=== PATIENT | male | born 1955 | race Caucasian/White ===

== ENCOUNTER → 2017-09-30 18:17 | Outpatient (CLI) | payer OTHER, SELFPAY | PROVIDERS: Family Provider Family Medicine; PCP Family Medicine; Visit Provider Physician Assistant | DX: J02.9 Acute pharyngitis, unspecified (principal) | CPT/HCPCS: 87081 ==

== ENCOUNTER 2018-07-30 05:01 | Emergency (ER) | payer OTHER, SELFPAY ==
[2018-07-30 05:02] VITALS: BP 148/94; PULSE 67; RESP 18; TEMP 36.7; O2SAT 97; BMI 24.7
--- NOTE | 2018-07-30 05:26 | ED.VISSUMM ---
- ER Visit Summary Date of Service: 07/30/18 Chief Complaint: Postoperative pain History of Present Illness: The patient is a 62 M presenting for evaluation secondary to postoperative pain. Patient had a right shoulder arthroscopy performed by Dr. OBREGON performed 2 days ago. On discharge she was given a prescription for 40 Percocet. When he went to the pharmacy, he told them that he did not feel that he needed 40 and only took a prescription for 5. He states however he is having persistent pain despite rrob-sns-ujspgft analgesic use, and is requesting analgesia. He denies any presence of fevers or abnormal drainage. Physical Examination: Vital signs are within normal limits. Patient has normal sensation range of motion of the hand and wrist. Normal pulses. Dressing was not taken down on the shoulder. Test Results: None indicated Emergency Department Course and Treatment: Patient presented secondary to postoperative pain. He does not have a fever or tachycardia. Patient actually brought in his bottle which showed only #5 Percocet is being dispensed. I do not believe that he is drug-seeking. Patient was given a dose of oxycodone in the emergency department and will be discharged with a course of Percocet. Disposition: Discharge Impression: 1. Postoperative pain This note was generated with [employer] dictation software. It may contain incorrect words, spelling, and punctuation that were not noted in review of the chart prior to signing ED Disposition - Plan for ED Patient: Disposition: Home or Assisted Living Chief Complaint: Upper Extremity Injury Diagnosis: Postoperative pain of extremity Instructions: ED Post Op Pain Prescriptions: Oxycodone HCl/Acetaminophen [Percocet 5/325] 1 - 2 tab PO Q6H PRN PRN 5 Days #40 tab PRN Reason: Pain Additional Instructions: Followup with Dr. Obregon as needed
--- NOTE | 2018-07-30 05:29 | ED.DCSUM_ITS ---
- ER Visit Summary Date of Service: 07/30/18 Chief Complaint: Postoperative pain History of Present Illness: The patient is a 62 M presenting for evaluation secondary to postoperative pain. Patient had a right shoulder arthroscopy performed by Dr. OBREGON performed 2 days ago. On discharge she was given a pr escription for 40 Percocet. When he went to the pharmacy, he told them that he did not feel that he needed 40 and only took a prescription for 5. He states however he is having persistent pain despite mznu-cqv-wipnqtg analgesic use, and is requesting analgesia. He denies any presence of fevers or abnormal drainage. Physical Examination: Vital signs are within normal limits. Patient has normal sensation range of motion of the hand and wrist. Normal pulses. Dressing was not taken down on the shoulder. Test Results: None indicated Emergency Department Course and Treatment: Patient presented secondary to postoperative pain. He does not have a fever or tachycardia. Patient actually brought in his bottle which showed only #5 Percocet is being dispensed. I do not believe that he is drug-seeking. Patient was given a dose of oxycodone in the emergency department and will be discharged with a course of Percocet. Disposition: Discharge Impression: 1. Postoperative pain This note was generated with [employer] dictation software. It may contain incorrect words, spelling, and punctuation that were not noted in review of the chart prior to signing ED Disposition - Plan for ED Patient: Disposition: Home or Assisted Living Chief Complaint: Upper Extremity Injury Diagnosis: Postoperative pain of extremity Instructions: ED Post Op Pain Prescriptions: Oxycodone HCl/Acetaminophen [Percocet 5/325] 1 - 2 tab PO Q6H PRN PRN 5 Days #40 tab PRN Reason: Pain Additional Instructions: Followup with Dr. Obregon as needed
[2018-07-30] MEDS: oxyCODONE 5 MG Tablet 10 MG PO (05:36)
== END 2018-07-30 05:38 | disposition home or self-care (01) ==
PROVIDERS: Emergency Provider Emergency Medicine; Family Provider Family Medicine; PCP Family Medicine
DX: G89.18 Other acute postprocedural pain (principal); Z98.890 Other specified postprocedural states
CPT/HCPCS: 99283

== ENCOUNTER → 2018-10-24 06:08 | Outpatient (CLI) | payer OTHER, SELFPAY ==
[2018-10-24 06:38] LABS: Absolute Lymphocyte Count 2.86 X10^3/ul (0.83-4.51); Absolute Neutrophil Count 3.9 X10^3/uL (2.0-7.7); Basophil# 0.02 X10^3/uL; Basophil% 0.3 % (0-1); Eosinophil# 0.16 X10^3/uL; Eosinophils% 2.1 % (0-5); Hematocrit 47.3 % (40-54); Hemoglobin 16.3 g/dl (13.0-16.5); Lymphocyte # 2.86 X10^3/ul (4.0); Lymphocyte % 36.9 % (19-41); Mean Corp Hgb Conc 34.5 g/gl (32-36); Mean Corpuscular Hgb 32.3 pg (27.0-32.0); Mean Corpuscular Volume 93.8 fL (80-94); Mean Platelet Vol. 9.4 fl (6.2-12.0); Monocyte# 0.86 X10^3/uL; Monocyte% 11.1 % (0-10); Neutrophil # 3.85 X10^3/uL (2.7-7.7); Neutrophil % 49.5 % (47-70); Platelet Count 227 K/mm3 (150-450); RBC Distribution Width CV 13.5 % (11.6-14.6); Red Blood Count 5.04 M/mm3 (4.6-6.2); White Blood Count 7.8 K/mm3 (4.4-11.0)
[2018-10-24 06:46] LABS: POSITIVE COUNT NO; POSITIVE DIFFERENTIAL NO; POSITIVE MORPHOLOGY NO
[2018-10-24 06:56] LABS: CRP 4.03 mg/L (0.0-3.0)
[2018-10-24 07:16] LABS: Erythrocyte Sedimentation Rate 9 mm/hr (0-20)
== END ==
PROVIDERS: Family Provider Family Medicine; PCP Family Medicine
DX: M70.62 Trochanteric bursitis, left hip (principal); Y93.9 Activity, unspecified; M25.552 Pain in left hip; Z96.642 Presence of left artificial hip joint
CPT/HCPCS: 36415; 85025; 85652; 86140

== ENCOUNTER 2018-12-15 08:00 | Outpatient (RCR) | payer OTHER, SELFPAY ==
--- NOTE | 2018-09-16 16:09 | HP.PTEVAL_ITS ---
Patient's Visit Information CAMILA BEAN is a 63 year old M referred to Physical Therapy by Isidro Obregon MD with a diagnosis of R Lg massive RCR. Date of Evaluation: 09/16/18 Physical Therapist: Bassam Frazier PT, XAVIER, SCS, CSCS - Visit Plan Frequency: 2x /Week Duration: 6 Weeks Plan: Nik has a good understanding of healing prodcess. 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 I'm familiar with this patient as I rehab his previous RCR. Nik states that he began to experience r ight shoulder pain after he started playing tennis again. He previously had three corticol injections by Dr Gaspar - Pain Right Shoulder Pain Intensity (Out of 10): 2 Pain Intensity Range: 2, 4 Comment: Depend on activity and sleeping position - Objective Presents to the clinic 6 weeks post op, his incision site is well healed with no seepage or drained. This right hand dominate individual had a grib strength of 85 R 95 L. Denies any numness of tingling. his passive rom was 130 Flexion, 130 Abduction and ext rotation 45 Int rotation was deferrd at this time - Goals Goal 1:: Return demo Phase 1 passive exercise Goal Time Frame: 1 Week Goal 2:: Understanding of healing process Goal Time Frame: 1 Week Goal 3:: Will progress thru phase 2 and 3 when appropraite Goal Time Frame: 6-8 Weeks - Rehabilitation Potential Physical Therapy Diagnosis: Same Rehabilitation Potential: Good - Anticipated Interventions Patient/Client Instruction: Educate patient on: Condition Therapeutic Exercise to Include: Strength training, Endurance training, Passive ROM, Active ROM For the Purpose of:: To increase ROM, To improve endurance Functional electric stimulation: Yes For the Purpose of:: To decrease pain, To increase ROM Thank you for the opportunity to evaluate your patient. For Medicare and Medicare HMO plans, please review the plan of care and approve it. It will need to be FAXED BACK to us at [phone] for Medicare purposes. For Medicare only, by signing this I certify the plan of care. Please let me know if there are questions or concerns regarding this plan of care. Physician Signature: Date:
--- NOTE | 2018-12-15 08:54 | HP.PTDCSUM ---
HP - PT D/C Summary It has been my pleasure to treat CAMILA BUSCH under orders from Isidro Obregon MD, for the diagnosis of R Lg massive RCR for a total of 10 visit(s). Discharge Date: 12/15/18 Please see the following information for a summary of their discharge status. - Subjective Subjective: Doing well shoulder feels great - Pain Right Shoulder Pain Intensity (Out of 10): 0 - Overall Improvement % Improvement: 100 - Objective Objective/Function: 175 shoulder flexion. 170 abduction. ext 85plus. int t4 vs T5. R ext 20.8/38.4. L ext 21/35 small tear - Goals Goal 1:: Return demo Phase 1 passive exercise Goal Progress: Goal Met Goal 2:: Understanding of healing process Goal Progress: Goal Met Goal 3:: Will progress thru phase 2 and 3 when appropraite Goal Progress: Goal Met - Plan Plan: discharge - D/C Information Discharge Comments: Progressed well f/u with physician at the end of December If there are questions or concerns regarding this patient's physical therapy, please feel free to call me at [phone]. Thank you for the referral of this patient. Sincerely, Bassam Frazier, PT, XAVIER, SCS, CSCS
== END 2018-12-15 10:20 | disposition home or self-care (01) ==
LOC: PT 08:00
PROVIDERS: Family Provider Family Medicine; PCP Family Medicine; Referring Provider Orthopaedic Surgery; Visit Provider Orthopaedic Surgery
DX: M75.121 Complete rotator cuff tear or rupture of right shoulder, not specified as traumatic (principal)
CPT/HCPCS: 97014; 97110; 97140; 97161; 97164; 97530; G0283

== ENCOUNTER → 2019-04-28 07:36 | Outpatient (CLI) | payer OTHER, SELFPAY ==
--- NOTE | 2019-04-28 07:42 | MRI_ITS ---
STUDY: MRI LEFT SHOULDER REASON FOR EXAM: Male, 63 years old. Shoulder pain TECHNIQUE: Standardized fat and water weighted pulse sequences were obtained in all 3 orthogonal planes. COMPARISON: None. FINDINGS: There is full-thickness tear of the supraspinatus tendon which is retracted up to 4 cm. There is increased T2 signal within the infraspinatus tendon without retraction. Normal subscapularis tendon. Normal teres minor tendon. Normal supraspinatus muscle. Normal infraspinatus muscle. Normal subscapularis muscle. Normal teres minor muscle. There is elevation of the humeral head relationship to the acromion. There are Articular and osteochondral defects within the humeral head most significant within the greater tuberosity. There is mild marrow with increased T2 signal secondary edema within the greater tuberosity likely reactive. There is a subchondral geode within the greater tuberosity measuring 7 mm. There is a septated approximately 3 cm fluid collection noted inferior to the coracoid process. . The bicipital tendon is intact. Small amount of fluid around the bicipital tendon within the bicipital tendon sheath. There is mild flattening deformity of the anterior and posterior labrum. There are small osteophytes at the glenohumeral joint. There are mild degenerative changes at the AC joint with inferior spurring. There is compression upon the supraspinatus muscle and tendon. Normal deltoid muscle. Normal trapezius muscle. MRI/Upper Ext Joint Only(Routine) IMPRESSION: Full-thickness tear of the supraspinatus tendon which is retracted up to 4 cm Tendinosis and partial tear of the infraspinatus tendon Elevation of the humeral head in relationship to the acromion Significant reticular or and osteochondral defects within the greater tuberosity with subchondral geodes and mild marrow edema which is reactive Subcoracoid fluid collection which may represent distention of the joint capsule versus ganglion cyst or paralabral cyst Significant degeneration anterior and posterior labrum degenerative tears cannot be excluded Mild bicipital tenosynovitis, the bicipital tendon is intact Electronically Signed: Merlin Mccloud, at 8:02 EDT Tel , Service support ,
== END ==
PROVIDERS: Family Provider Family Medicine; PCP Family Medicine; Referring Provider Orthopaedic Surgery; Visit Provider Orthopaedic Surgery
DX: M75.42 Impingement syndrome of left shoulder (principal)
CPT/HCPCS: 73221

== ENCOUNTER → 2019-09-07 14:52 | Outpatient (CLI) | payer OTHER, SELFPAY ==
[2019-05-03 16:59] VITALS: BMI 24.7
[2019-09-07 16:56] LABS: ALB/GLOB Ratio 1.3 RATIO (0.9-2.4); AST(SGOT) 18 U/L (15-37); Alanine Aminotransfer ALT/SGPT 36 U/L (16-61); Albumin, Serum 3.9 g/dL (3.2-5.0); Alkaline Phosphatase 68 U/L (45-117); Anion Gap 8 (5-15); BUN 18 mg/dL (7-18); BUN/Creat Ratio 19.3 RATIO (10-20); Calcium,Total 8.8 mg/dL (8.5-10.1); Chloride 108 mmol/L (98-107); Creatinine, Serum 0.93 mg/dL (0.70-1.30); EST Glomerular Filtration Rate 86 mL/min (>60); Est Glom Filt Rate - Afr Amer 104 mL/min (>60); Globulin 2.9 g/dL (2.2-4.2); Glucose 109 mg/dL (74-106); Potassium 3.8 mmol/L (3.5-5.1); Protein, Total 6.8 g/dL (6.4-8.2); Sodium Level 140 mmol/L (136-145); Thyroid Stim Hormone (TSH) 1.64 uIU/mL (0.358-3.74)
[2019-09-07 17:58] LABS: Hemoglobin A1c 4.9 % (4.2-6.3)
[2019-09-12 09:27] LABS: Vitamin B12 301 pg/mL (211-911); Vitamin D,25 Hydroxy 22.1 ng/mL
== END ==
PROVIDERS: PCP Family Medicine; Referring Provider Family Medicine; Visit Provider Family Medicine
DX: R20.0 Anesthesia of skin (principal); R20.2 Paresthesia of skin; E55.9 Vitamin D deficiency, unspecified
CPT/HCPCS: 36415; 80053; 82306; 82607; 82746; 83036; 84443

== ENCOUNTER 2019-11-08 07:30 | Outpatient (RCR) | payer OTHER, SELFPAY ==
[2019-05-03 16:59] VITALS: BMI 24.7
--- NOTE | 2019-09-07 11:31 | HP.PTEVAL ---
Patient's Visit Information CAMILA BUSCH is a 64 year old M referred to Physical Therapy by Kip Medina MD with a diagnosis of Glut Medius and minmus repair. Date of Evaluation: 09/07/19 Physical Therapist: Valeria Trejo DPT - Visit Plan Frequency: 1x/Week Duration: 4 Weeks Plan: Follow protocol. HEP Given 09/07: SKTC with other knee bent, Prone quad stretch, glut sets to 25% of force, isometric abdominals in hooklying, hamstring stretch, and hip adduction isometrics with all in hooklying - Subjective Findings: Patient reports that he had a resurfacing in 2016- never got better- went through injections etc finally went and Saw Dr. Deluna who did ultrasounds and sent him to Dr. Medina- surgery detatched tendons- cleaned out calcifications- put in 15 screws and 3 anchors and lots of sutures. This surgery was 08/17/2019- went home after surgery- pretty much non-weight bearing on the left LE. No hip pain at this time- does have some stiffness. He feels like his ROM is improving. He is being compliant with weigh bearing. No N/T in the LE. 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 Sleep: not disturbed- wants to be able to roll over on that side- going between reclyner and bed. Recreational activities: play tennis and be more active overall. PMHX: Torn left shoulder, two right shoulder surgeries. Meds: vespia - Objective Posture: FH, RS-can correct with VC's. Gait: axillary crutches with NWB to the left LE- no problems with crutching 250 feet. Weight bearing activities not tested seconday to restrictions. Palpation: not tender. Strength: Ankle: 5/5, Knee: 5/5- Hip: isometric testing: Flexion/Abd/Extn/add at neutral: 4+/5 no pain, Core: fair plus. ROM: ANkle/Knee: WNL, Hip: extn: 0 degrees, Abd: 50 degrees no pain, IR/ER: neutral, Flexion: 120 degrees. Flex: HS: moderate, Quad: moderate, Gastroc: moderate - Goals Goal 1:: Patient will be I with HEP and progression Goal Time Frame: 4-6 Weeks Goal 2:: Patient will ambulate >300 feet with a normalized gait pattern as allowed per protocol Goal Time Frame: 4-6 Weeks Goal 3:: Patient will demo 5/5 strength in LE where deficit as allowed per protocol Goal Time Frame: 4-6 Weeks Goal 4:: Patient will return to all normal ADL's with 0/10 pain as allowed per protocol Goal Time Frame: 4-6 Weeks - Rehabilitation Potential Physical Therapy Diagnosis: Patient presents with hypomobilty s/p surgical intervention to the left hip- he has decreased ROM, strength, flex and muscular endurnace. Rehabilitation Potential: Good - Anticipated Interventions Patient/Client Instruction: Educate patient on: Benefits of Fitness Program Therapeutic Exercise to Include: Strength training, Endurance training, Balance training, Agility training, Body mechanics, Postural training, Flexibilty training, Gait and locomotor training, Neuromotor development, Passive ROM, Active ROM, Dynamic Lumbar Stabilization Comment: as per protocol For the Purpose of:: To improve muscle performance and motor function TENS: Yes Cryotherapy (ice pack, ice massage): Yes Thermo therapy (hot pack): Yes Thank you for the opportunity to evaluate your patient. For Medicare and Medicare HMO plans, please review the plan of care and approve it. It will need to be FAXED BACK to us at [phone] for Medicare purposes. For Medicare only, by signing this I certify the plan of care. Please let me know if there are questions or concerns regarding this plan of care. Physician Signature: Date:
--- NOTE | 2019-11-08 08:48 | HP.PTDCSUM ---
It has been my pleasure to treat CAMILA BUSCH referred by Kip Medina MD, with the diagnosis of Glut Medius and minmus repair for a total of 9 visit(s). Discharge Date: Please see the following information for a summary of their discharge status. Subjective: No pain today. I was sore yesterday % Improvement: 80 Objective/Function: No pain this date. No limits with ambulation. Pt is I with HEP. 5/5 B LE strength. Rx goals achieved Goal 1:: Patient will be I with HEP and progression Goal Progress: Goal Met Goal 2:: Patient will ambulate >300 feet with a normalized gait pattern as allowed per protocol Goal Progress: Goal Met Goal 3:: Patient will demo 5/5 strength in LE where deficit as allowed per protocol Goal Progress: Goal Met Goal 4:: Patient will return to all normal ADL's with 0/10 pain as allowed per protocol Goal Progress: Goal Met Plan: Discharge If there are questions or concerns regarding this patient's physical therapy, please feel free to call me at [phone]. Thank you for the referral of this patient. Sincerely, Otilio Duff, PT, ATC
== END 2019-11-08 10:34 | disposition home or self-care (01) ==
LOC: PT 07:30
PROVIDERS: PCP Family Medicine; Referring Provider Orthopaedic Surgery Sports Medicine; Visit Provider Orthopaedic Surgery Sports Medicine
DX: S76.012D Strain of muscle, fascia and tendon of left hip, subsequent encounter (principal)
CPT/HCPCS: 97110; 97162; 97164

== ENCOUNTER → 2019-12-04 15:20 | Outpatient (CLI) | payer OTHER, SELFPAY ==
[2019-05-03 16:59] VITALS: BMI 24.7
[2019-12-04 18:10] LABS: Absolute Lymphocyte Count 2.47 X10^3/uL (0.83-4.51); Absolute Neutrophil Count 3.7 X10^3/uL (2.0-7.7); Basophil# 0.03 X10^3/uL; Basophil% 0.4 % (0-1); Eosinophil# 0.13 X10^3/uL; Eosinophils% 1.9 % (0-5); Hematocrit 45.5 % (40-54); Hemoglobin 15.8 g/dL (13.0-16.5); Lymphocyte # 2.47 X10^3/ul (4.0); Lymphocyte % 35.7 % (19-41); Mean Corp Hgb Conc 34.7 g/dL (32-36); Mean Corpuscular Hgb 32.8 pg (27.0-32.0); Mean Corpuscular Volume 94.6 fL (80-94); Mean Platelet Vol. 10.4 fl (6.2-12.0); Monocyte# 0.56 X10^3/uL; Monocyte% 8.1 % (0-10); NRBC Flagged by Analyzer 0 % (0-5); Neutrophil # 3.71 X10^3/uL (2.7-7.7); Neutrophil % 53.6 % (47-70); Platelet Count 247 K/mm3 (150-450); RBC Distribution Width CV 12.2 % (11.6-14.6); RBC Distribution Width SD 42.8 fl (35.1-43.9); Red Blood Count 4.81 M/mm3 (4.6-6.2); White Blood Count 6.9 K/mm3 (4.4-11.0)
[2019-12-04 18:19] LABS: Vitamin D,25 Hydroxy 28.4 ng/mL
[2019-12-04 18:34] LABS: ALB/GLOB Ratio 1.3 RATIO (0.9-2.4); AST(SGOT) 24 U/L (15-37); Alanine Aminotransfer ALT/SGPT 35 U/L (16-61); Albumin, Serum 4.1 g/dL (3.2-5.0); Alkaline Phosphatase 58 U/L (45-117); Anion Gap 5 (5-15); BUN 21 mg/dL (7-18); BUN/Creat Ratio 24.1 RATIO (10-20); Chloride 106 mmol/L (98-107); Creatinine, Serum 0.87 mg/dL (0.70-1.30); EST Glomerular Filtration Rate 93 mL/min (>60); Est Glom Filt Rate - Afr Amer 113 mL/min (>60); Globulin 3.1 g/dL (2.2-4.2); Glucose 84 mg/dL (74-106); PSA,Total- Diagnostic 4.01 ng/mL (0.0-4.0); Protein, Total 7.2 g/dL (6.4-8.2); Sodium Level 138 mmol/L (136-145); Thyroid Stim Hormone (TSH) 2.25 uIU/mL (0.358-3.74)
== END ==
PROVIDERS: PCP Family Medicine; Visit Provider Family Medicine
DX: R20.2 Paresthesia of skin (principal); M85.80 Other specified disorders of bone density and structure, unspecified site; E55.9 Vitamin D deficiency, unspecified; Z12.5 Encounter for screening for malignant neoplasm of prostate
CPT/HCPCS: 36415; 80053; 82306; 84153; 84443; 85025

== ENCOUNTER → 2020-09-26 16:30 | Outpatient (CLI) | payer OTHER, SELFPAY ==
[2019-05-03 16:59] VITALS: BMI 24.7
--- NOTE | 2020-09-26 16:47 | MRI_ITS ---
STUDY: MRI LEFT HIP REASON FOR EXAM: Male, 65 years old. STRAIN OF MUSCLE FASCIA AND TENDON; REVAL FOR GLUTEAL TENDON TEAR TECHNIQUE: Standardized fat and water weighted pulse sequences were obtained in all 3 orthogonal planes. COMPARISON: 07/06/2016. FINDINGS: Left hip arthroplasty appears intact. Large volume left hip joint effusion with extension of the iliopsoas bursal distention (axial image 6 series 3). No acute fracture line. No acute dislocation. No acute cortical destruction. Trace left greater trochanteric bursitis. Mild right hip cartilage loss with minimal productive changes. Minimal pubic symphysis arthrosis. Normal sacroiliac joints. Mild lumbar spine arthrosis. Moderate gluteus medius/minimus tendinosis with previous tendon repair (no recurrent tear). Normal hamstring tendon. Normal iliopsoas tendon. Normal adductor tendons. Normal rectus femoris tendons. No focal muscle abdomen only. Colonic diverticulosis. Prostatomegaly measuring up to 5.1 cm. Small fat-containing inguinal hernias. Remainder of the visualized intra-abdominal/pelvic contents unremarkable. Normal neurovascular bundle. MRI/Lower Ext Joint Only (Routine) IMPRESSION: Left hip arthroplasty with large left hip joint effusion and iliopsoas bursal distention Moderate gluteus medius/minimus tendinosis with tendon repair (no recurrent tear) Trace left greater trochanteric bursitis Electronically Signed: Derrick Martinez DO at 10:30 EST Tel , Service support ,
== END ==
PROVIDERS: PCP Family Medicine; Referring Provider Orthopaedic Surgery Sports Medicine; Visit Provider Orthopaedic Surgery Sports Medicine
DX: S76.012D Strain of muscle, fascia and tendon of left hip, subsequent encounter (principal); X58.XXXD Exposure to other specified factors, subsequent encounter
CPT/HCPCS: 73721

== ENCOUNTER 2021-01-01 15:57 | Emergency (ER) | payer OTHER, SELFPAY ==
[2019-05-03 16:59] VITALS: BMI 24.7
[2021-01-01 15:57] VITALS: BP 133/82; PULSE 71; RESP 16; TEMP 36.4; O2SAT 97; BMI 24.3
--- NOTE | 2021-01-01 16:10 | CT_ITS ---
STUDY: CT FACIAL BONES WITHOUT CONTRAST REASON FOR EXAM: Male, 65 years old. injury RADIATION DOSAGE (If Supplied By Facility): CTDIvol = ( 29.38 ) mGy, DLP = ( 679.68 ) mGycm TECHNIQUE: The patient was scanned in a multi detector CT scanner. Sagittal and coronal images were reconstructed. Individualized dose optimization techniques were used for this CT. COMPARISON: None. FINDINGS: Some soft tissue swelling in the left mandibular area. No loculated fluid collection to suggest hematoma or abscess. Normal orbital miguel and orbital contents. Normal nasal bones and anterior nasal spine. Normal facial bones. There is no demonstrated fracture. Normal visualized paranasal sinuses. CT/Sinus/Facial Bone IMPRESSION: Normal unenhanced CT of the facial bones. Electronically Signed: Kaiden Camejo MD at 17:02 EDT Tel , Service support ,
--- NOTE | 2021-01-01 16:10 | EX.ED.DYSGE1 ---
HPI History of Present Illness Chief Complaint: Edema Informant: patient Narrative Narrative: 65-year-old male states that yesterday he hit his lower left jaw on some metal shelving. He notes it was sore and there is a mild amount of swelling last night. He iced it. He states that today his coworkers noticed that his face was more swollen. He denies any dental pain. He denies any malocclusion. No dry mouth. PFSH PFS Medical History Arthritis Shoulder pain Home Medications amoxicillin 875 mg-potassium clavulanate 125 mg tablet 1 tab PO BID #20 tab 05/03/19 [Rx Last Taken Unknown] Allergy/AdvReac Type Severity Reaction Status Date / Time No Known Allergies Allergy Verified 05/03/19 16:56 Surgical History history of hip resurfacing History of shoulder surgery Social History Smoking Status: Never smoker alcohol intake: never ROS ROS ED Constitutional Constitutional ED: Denies chills or weight loss Eyes Eyes: Denies change in vision or diplopia ENT ENT ED: Reports other Details: See history of present illness ; Denies ear pain, rhinorrhea or sore throat Cardiovascular Cardiovascular: Denies chest pain, orthopnea, palpitations or racing heartbeat Respiratory/Chest Respiratory/Chest: Denies cough, dyspnea or orthopnea Gastrointestinal Gastrointestinal: Denies abdominal pain, diarrhea, nausea or vomiting Genitourinary Genitourinary ED: Denies dysuria, hematuria or urinary frequency Musculoskeletal Musculoskeletal: Denies arthralgias or myalgias Integumentary Denies abscess or rash Neurologic Neurologic: Denies headache(s) or weakness Psychiatric Psychiatric: Denies anxiety, depression, suicidal ideation or suicidal thoughts Endocrine Endocrinology: Denies polydipsia, polyphagia or polyuria Allergic/Immunologic Allergic/Immunologic ED: Denies mouth swelling, tongue swelling or urticaria EXAM Physical Exam Const Vital Signs: 01/01/21 15:57 Temperature 97.6 F L Temperature Source Temporal Pulse Rate 71 Respiratory Rate 16 Blood Pressure 133/82 H Blood Pressure Mean 99 Pulse Ox 97 Oxygen Delivery Method Room Air Positive well nourished and well developed General Appearance ED: well developed HEENT Reports normocephalic, head/scalp atraumatic and moist mucous membranes HEENT Narrative: Patient is swelling and mild tenderness over the lower left mandible region. No malocclusion. No dental injury noted or swelling seen. tenderness Eyes PERRL and EOMs intact bilaterally Neck no lymphadenopathy, supple and no JVD Resp normal respiratory effort and clear to auscultation bilaterally Cardio regular rate, regular rhythm and no murmurs GI normal to inspection, nondistended, normoactive bowel sounds and non-tender Palpation: soft Back/Spine no CVA tenderness and normal ROM Extremity normal to inspection General Extremety ED: Negative for edema General Extremity: Negative for edema Neuro oriented x3 and CN's II-XII intact bilaterally Sensorium / Orientation: alert Motor Exam: strength 5/5 throughout Psych mental status grossly normal Mood & Affect: Negative for depressed or tearful Skin no rashes or lesions noted and no wounds MDM MDM MDM Narrative Medical decision making narrative: CT the facial bones was obtained. This was read by radiology reviewed by myself. Soft tissue swelling noted but no overt fracture. Patient will be discharged home with supportive care. Symptoms should resolve slowly over the next week to 2 weeks. Radiography Diagnostic Testing: Radiology Impression Facial/Sinus 01/01/21 16:10 IMPRESSION: Normal unenhanced CT of the facial bones. Electronically Signed: Kaiden Camejo MD at 17:02 EDT Tel , Service support , Discharge Plan Triage Chief Complaint: Edema ED Provider: Celestino Henry Dx/Rx/DC Orders Clinical Impression: Facial hematoma Instructions: ED Hematoma Prescriptions: No Action amoxicillin-pot clavulanate 875-125 mg tablet 1 tab PO BID Qty: 20 RF: 0 Primary Care Provider: Derrick Renner Referrals: Derrick Renner MD [Primary Care Provider] - As Needed Disposition Disposition: Home, self care
== END 2021-01-01 17:27 | disposition home or self-care (01) ==
PROVIDERS: Emergency Provider Emergency Medicine; PCP Family Medicine
DX: S00.83XA Contusion of other part of head, initial encounter (principal); W22.09XA Striking against other stationary object, initial encounter; Y93.9 Activity, unspecified; Y92.9 Unspecified place or not applicable; Y99.9 Unspecified external cause status; M19.90 Unspecified osteoarthritis, unspecified site
CPT/HCPCS: 70486; 99282

== ENCOUNTER → 2021-03-06 09:41 | Outpatient (CLI) | payer OTHER, SELFPAY ==
[2021-03-06 10:28] LABS: Absolute Lymphocyte Count 2.32 X10^3/uL (0.83-4.51); Absolute Neutrophil Count 4.4 X10^3/uL (2.0-7.7); Basophil# 0.04 X10^3/uL; Basophil% 0.5 % (0-1); Eosinophil# 0.17 X10^3/uL; Eosinophils% 2.2 % (0-5); Hematocrit 45.2 % (40-54); Hemoglobin 15.8 g/dL (13.0-16.5); Lymphocyte # 2.32 X10^3/ul (0.83-4.51); Lymphocyte % 30.6 % (19-41); Mean Corpuscular Hgb 33.2 pg (27.0-32.0); Mean Platelet Vol. 10.2 fl (6.2-12.0); Monocyte# 0.62 X10^3/uL; Monocyte% 8.2 % (0-10); NRBC Flagged by Analyzer 0 % (0-5); Neutrophil % 58.2 % (47-70); Platelet Count 249 K/mm3 (150-450); RBC Distribution Width CV 12.6 % (11.6-14.6); RBC Distribution Width SD 43.8 fl (35.1-43.9); Red Blood Count 4.76 M/mm3 (4.6-6.2); White Blood Count 7.6 K/mm3 (4.4-11.0)
[2021-03-06 11:23] LABS: ALB/GLOB Ratio 1.3 RATIO (0.9-2.4); AST(SGOT) 22 U/L (15-37); Alanine Aminotransfer ALT/SGPT 36 U/L (16-61); Alkaline Phosphatase 66 U/L (45-117); Anion Gap 5 (5-15); BUN 17 mg/dL (7-18); BUN/Creat Ratio 20.2 RATIO (10-20); Calcium,Total 9.1 mg/dL (8.5-10.1); Chloride 106 mmol/L (98-107); Cholesterol 195 mg/dL (200); Creatinine, Serum 0.84 mg/dL (0.70-1.30); EST Glomerular Filtration Rate 97 mL/min (>60); Est Glom Filt Rate - Afr Amer 117 mL/min (>60); Glucose 88 mg/dL (74-106); High Density Lipoprotein 44 mg/dL; Potassium 4.3 mmol/L (3.5-5.1); Sodium Level 138 mmol/L (136-145); Triglycerides 115 mg/dL; Very Low Density Lipoprotein 23 mg/dL (5-40)
[2021-03-06 11:24] LABS: Vitamin D,25 Hydroxy 39.3 ng/mL
== END ==
PROVIDERS: PCP Family Medicine; Referring Provider Family Medicine; Visit Provider Family Medicine
DX: Z00.00 Encounter for general adult medical examination without abnormal findings (principal)
CPT/HCPCS: 36415; 80053; 80061; 82306; 84403; 85025

== ENCOUNTER 2021-05-04 06:12 | Emergency (ER) | payer OTHER, SELFPAY ==
[2021-05-04 06:13] VITALS: BP 145/87; PULSE 67; RESP 14; TEMP 36.6; O2SAT 96; BMI 25.4
--- NOTE | 2021-05-04 06:26 | EDS_ITS ---
HPI History of Present Illness Chief Complaint: Lower Extremity Injury Narrative Narrative: 65-year-old male presenting with left knee bursitis. He states he has had this for multiple weeks. He has had this drained twice by his primary care provider. Patient states that he called last night but did not want to come in because it was too busy. He showed up this morning because his knee is still little bit swollen. He is able to ambulate. He is wearing compression on the left knee. He has only mild pain. 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 He states it is not red or hot. He is not having systemic signs or symptoms. He states that previously he had a bursitis on his right knee for over a year. He was told that he may need to have surgery to remove the bursa but then this spontaneously resolved. Patient has an orthopedic surgeon who sees him for his left hip and for his shoulders. He states he is currently due to have an injection in the left hip however he says he is having trouble making follow-up because he is working too much. [facility] Medical History Arthritis Shoulder pain Home Medications NK 05/04/21 [History Last Taken Unknown] Allergy/AdvReac Type Severity Reaction Status Date / Time No Known Allergies Allergy Verified 05/04/21 06:16 Surgical History history of hip resurfacing History of shoulder surgery Social History Smoking Status: Never smoker alcohol intake: never ROS ROS ED Constitutional Constitutional ED: Denies chills or fever(s) Eyes Eyes: Denies blurry vision or change in vision ENT ENT ED: Denies rhinorrhea or sore throat Cardiovascular Cardiovascular: Denies chest pain or palpitations Respiratory/Chest Respiratory/Chest: Denies cough or dyspnea Gastrointestinal Gastrointestinal: Denies abdominal pain, nausea or vomiting Genitourinary Genitourinary ED: Denies dysuria or hematuria Musculoskeletal Musculoskeletal: Reports other Details: Left knee swelling Integumentary Denies Abrasions or rash Neurologic Neurologic: Denies headache(s) or paresthesias EXAM Physical Exam Const Vital Signs: 05/04/21 06:13 Temperature 97.8 F Temperature Source Temporal Pulse Rate 67 Respiratory Rate 14 Blood Pressure 145/87 H Blood Pressure Mean 106 Pulse Ox 96 Positive well nourished General Appearance ED: NAD HEENT normocephalic and atraumatic Resp normal respiratory effort Extremity Extremity Narrative: Mild fluctuance to left knee patella region. No erythema or warmth. Patient ambulatory without antalgic gait. Patient has full range of motion of the left knee. He is able to flex and extend it actively and passively. No short arc pain or limited range of motion. No erythema or warmth. Neuro oriented x3 Sensorium / Orientation: alert Psych mental status grossly normal Skin No no wounds Rashes: No no rashes MDM MDM MDM Narrative Medical decision making narrative: Patient has bursitis of the left knee which does not appear to be infected. I do not believe he has a joint infection of the left knee. When I asked him if he could move his leg he briskly flexed his hip and flexed and extended his knee actively without any pain whatsoever. I do not believe the bursa is infected either. Patient is already had this drained t wice by his primary care physician. He has an orthopedic surgeon which she has not made follow-up with but is currently supposed to follow-up with him in the near future for a left hip injection. I recommended to him that he keep compression on this. He is counseled that this is likely due to working on his knees. If he has any signs of infection or limitation in movement he should return to the ER for repeat evaluation otherwise he needs follow-up outpatient. Patient acknowledged understanding of this. Impression: 1. Left knee bursitis Discharge Plan Triage Chief Complaint: Lower Extremity Injury ED Provider: Adolfo Sommer Dx/Rx/DC Orders Instructions: ED Bursitis Prescriptions: No Action NK RF: 0 Primary Care Provider: Derrick Renner Referrals: Derrick Renner MD [Primary Care Provider] - Disposition Disposition: Home, Self Care
== END 2021-05-04 06:41 | disposition home or self-care (01) ==
LOC: ED 06:37
PROVIDERS: Emergency Provider Student in an Organized Health Care Education/Training Program; PCP Family Medicine
DX: M70.52 Other bursitis of knee, left knee (principal)
CPT/HCPCS: 99282

== ENCOUNTER 2021-08-11 10:42 | Outpatient (CLI) | payer OTHER, SELFPAY ==
[2021-08-11 12:46] LABS: Vitamin B12 1033 pg/mL (211-911)
[2021-08-11 12:50] LABS: Absolute Lymphocyte Count 2.52 X10^3/uL (0.83-4.51); Absolute Neutrophil Count 4.7 X10^3/uL (2.0-7.7); Basophil# 0.04 X10^3/uL; Basophil% 0.5 % (0-1); Eosinophil# 0.15 X10^3/uL; Eosinophils% 1.9 % (0-5); Hematocrit 46.6 % (40-54); Hemoglobin 16.3 g/dL (13.0-16.5); Lymphocyte # 2.52 X10^3/ul (0.83-4.51); Lymphocyte % 31.3 % (19-41); Mean Corpuscular Hgb 33.1 pg (27.0-32.0); Mean Corpuscular Volume 94.5 fL (80-94); Mean Platelet Vol. 10.6 fl (6.2-12.0); Monocyte# 0.61 X10^3/uL; Monocyte% 7.6 % (0-10); NRBC Flagged by Analyzer 0 % (0-5); Neutrophil % 58.5 % (47-70); Platelet Count 245 K/mm3 (150-450); RBC Distribution Width CV 12.4 % (11.6-14.6); RBC Distribution Width SD 42.8 fl (35.1-43.9); Red Blood Count 4.93 M/mm3 (4.6-6.2)
[2021-08-11 13:05] LABS: ALB/GLOB Ratio 1.2 RATIO (0.9-2.4); AST(SGOT) 24 U/L (15-37); Alanine Aminotransfer ALT/SGPT 33 U/L (16-61); Alkaline Phosphatase 53 U/L (45-117); Anion Gap 6 (5-15); BUN 22 mg/dL (7-18); BUN/Creat Ratio 23.9 RATIO (10-20); Calcium,Total 9.7 mg/dL (8.5-10.1); Chloride 105 mmol/L (98-107); Creatinine, Serum 0.92 mg/dL (0.70-1.30); EST Glomerular Filtration Rate 87 mL/min (>60); Est Glom Filt Rate - Afr Amer 105 mL/min (>60); Globulin 3.2 g/dL (2.2-4.2); Glucose 94 mg/dL (74-106); Potassium 4.7 mmol/L (3.5-5.1); Protein, Total 7.2 g/dL (6.4-8.2); Sodium Level 138 mmol/L (136-145); Thyroid Stim Hormone (TSH) 2.14 uIU/mL (0.358-3.74)
== END 2021-08-11 23:59 | disposition short-term general hospital (02) ==
LOC: MFPLAB 10:47
PROVIDERS: PCP Family Medicine; Visit Provider Family Medicine
DX: R20.2 Paresthesia of skin (principal); I48.91 Unspecified atrial fibrillation; M13.0 Polyarthritis, unspecified; R71.8 Other abnormality of red blood cells; M70.42 Prepatellar bursitis, left knee
CPT/HCPCS: 36415; 80053; 82607; 82746; 84443; 85025

== ENCOUNTER → 2022-09-04 | Outpatient (CLI) | payer OTHER, SELFPAY ==
[2022-09-04 15:15] LABS: Absolute Lymphocyte Count 2.04 X10^3/uL (0.83-4.51); Absolute Neutrophil Count 3.7 X10^3/uL (2.0-7.7); Basophil# 0.03 X10^3/uL; Basophil% 0.5 % (0-1); Eosinophils% 1.6 % (0-5); Hematocrit 48.4 % (40-54); Hemoglobin 16.6 g/dL (13.0-16.5); Lymphocyte # 2.04 X10^3/ul (0.83-4.51); Lymphocyte % 31.8 % (19-41); Mean Corp Hgb Conc 34.3 g/dL (32-36); Mean Corpuscular Hgb 32.9 pg (27.0-32.0); Mean Corpuscular Volume 95.8 fL (80-94); Mean Platelet Vol. 10.7 fl (6.2-12.0); Monocyte# 0.51 X10^3/uL; NRBC Flagged by Analyzer 0 % (0-5); Neutrophil % 57.6 % (47-70); Platelet Count 239 K/mm3 (150-450); RBC Distribution Width CV 12.6 % (11.6-14.6); RBC Distribution Width SD 43.9 fl (35.1-43.9); Red Blood Count 5.05 M/mm3 (4.6-6.2); White Blood Count 6.4 K/mm3 (4.4-11.0)
[2022-09-04 16:02] LABS: ALB/GLOB Ratio 1.3 RATIO (0.9-2.4); AST(SGOT) 30 U/L (15-37); Alanine Aminotransfer ALT/SGPT 41 U/L (16-61); Albumin, Serum 4.1 g/dL (3.2-5.0); Alkaline Phosphatase 55 U/L (45-117); Anion Gap 8 (5-15); BUN 22 mg/dL (7-18); BUN/Creat Ratio 24.1 RATIO (10-20); Calcium,Total 9.3 mg/dL (8.5-10.1); Chloride 104 mmol/L (98-107); Cholesterol 219 mg/dL (200); Creatinine, Serum 0.91 mg/dL (0.70-1.30); EST Glomerular Filtration Rate 87 mL/min (>60); Est Glom Filt Rate - Afr Amer 106 mL/min (>60); Globulin 3.1 g/dL (2.2-4.2); Glucose 84 mg/dL (74-106); High Density Lipoprotein 48 mg/dL; PSA,Total - Annual Screen 8.93 ng/mL (0.00-4.00); Potassium 4.4 mmol/L (3.5-5.1); Protein, Total 7.2 g/dL (6.4-8.2); Sodium Level 138 mmol/L (136-145); Triglycerides 132 mg/dL; Very Low Density Lipoprotein 26 mg/dL (5-40)
[2022-09-04 16:11] LABS: Vitamin D,25 Hydroxy 43.6 ng/mL
== END | disposition home or self-care (01) ==
LOC: MFPLAB 12:30
PROVIDERS: PCP Family Medicine; Referring Provider Family Medicine; Visit Provider Family Medicine
DX: Z00.00 Encounter for general adult medical examination without abnormal findings (principal); M85.80 Other specified disorders of bone density and structure, unspecified site; Z12.5 Encounter for screening for malignant neoplasm of prostate
CPT/HCPCS: 36415; 80053; 80061; 82306; 84153; 85025; G0103

== ENCOUNTER → 2022-11-12 | Outpatient (CLI) | payer OTHER, SELFPAY ==
--- NOTE | 2022-11-12 15:33 | MRI_ITS ---
STUDY: MR PELVIS WITH AND WITHOUT CONTRAST (PROSTATE) REASON FOR EXAM: Male, 67 years old. Elevated PSA TECHNIQUE: Standardized multiparametric prostate MRI with T1, T2, DWI/ADC sequences were obtained in 3 orthogonal planes, and dynamic contrast enhancement sequences. 15 ml of clariscan contrast material was administered intravenously for the contrast portion of the examination. Exam is limited due to susceptibility artifact caused by left hip replacement, which obscures a large portion of the prostate gland (predominantly left side). COMPARISON: None. FINDINGS: The prostate volume measures 67.2 mm3. The contours of the prostate gland are lobulated. There is mass effect on the bladder base. The transition zone is heterogenous. PI-RADS DWI score 1 - No abnormality (normal) on ADC or high b-value DWI. PI-RADS T2W score 2 - A mostly encapsulated nodule OR a homogeneous circumscribed nodule without encapsulation (atypical nodule) or a homogeneous mildly hypointense area between nodules.. 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 The peripheral zone is homogenous. PI-RADS DWI score 1 - No abnormality (normal) on ADC or high b-value DWI. PI-RADS T2W score 1 - Uniformaly hyperintense (normal). 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 The seminal vesicles demonstrate normal margins and T2 signal pattern. No mass lesion or invasion depicted. The rectoprostatic angles are normal. Urinary bladder is normal without wall thickening. The vascular structures of the are normal. The visualized hollow viscus structures are normal. No bone marrow edema or mass lesion depicted. MRI/Pelvis W/WO Contrast IMPRESSION: 1. PIRADS v2.1 2019 -- 2 - Low (clinically significant cancer is unlikely). 2. Exam limited due to artifact caused by left hip prosthesis. Electronically Signed: Mj Garza (Brooks), at 11:57 EDT ,
[2022-11-12 17:56] LABS: EGFR FINGERSTICK > 60.0000 mL/min (>60)
== END | disposition home or self-care (01) ==
LOC: MRI 15:00
PROVIDERS: PCP Family Medicine; Referring Provider Urology; Visit Provider Urology
DX: R97.20 Elevated prostate specific antigen [PSA] (principal)
CPT/HCPCS: 72197; A9575

== ENCOUNTER → 2022-11-16 | Outpatient (CLI) | payer OTHER, SELFPAY ==
[2022-11-18 12:08] LABS: PSA, Free % 13.3 % (.)
== END | disposition home or self-care (01) ==
LOC: LAB 15:34
PROVIDERS: PCP Family Medicine; Referring Provider Urology; Visit Provider Urology
DX: R97.20 Elevated prostate specific antigen [PSA] (principal)
CPT/HCPCS: 36415; 84153; 84154

== ENCOUNTER → 2024-05-19 | Outpatient (CLI) | payer MEDICARE, SELFPAY ==
[2024-05-19 10:29] LABS: Absolute Lymphocyte Count 1.71 X10^3/uL (0.83-4.51); Absolute Neutrophil Count 3.1 X10^3/uL (2.0-7.7); Basophil# 0.04 X10^3/uL; Basophil% 0.7 % (0-1); Eosinophil# 0.12 X10^3/uL; Eosinophils% 2.1 % (0-5); Hematocrit 45.8 % (40-54); Hemoglobin 16.2 g/dL (13.0-16.5); Lymphocyte # 1.71 X10^3/ul (0.83-4.51); Lymphocyte % 30.5 % (19-41); Mean Corp Hgb Conc 35.4 g/dL (32-36); Mean Corpuscular Hgb 33.3 pg (27.0-32.0); Mean Platelet Vol. 10.1 fl (6.2-12.0); Monocyte# 0.63 X10^3/uL; Monocyte% 11.2 % (0-10); NRBC Flagged by Analyzer 0 % (0-5); Neutrophil % 55.3 % (47-70); Platelet Count 230 K/mm3 (150-450); RBC Distribution Width CV 12.2 % (11.6-14.6); RBC Distribution Width SD 42.5 fl (35.1-43.9); Red Blood Count 4.87 M/mm3 (4.6-6.2); White Blood Count 5.6 K/mm3 (4.4-11.0)
[2024-05-19 11:24] LABS: ALB/GLOB Ratio 1.4 RATIO (0.9-2.4); AST(SGOT) 23 U/L (15-37); Alanine Aminotransfer ALT/SGPT 36 U/L (16-61); Alkaline Phosphatase 62 U/L (45-117); Anion Gap 5 (5-15); BUN 19 mg/dL (7-18); BUN/Creat Ratio 22.9 RATIO (10-20); Calcium,Total 8.7 mg/dL (8.5-10.1); Chloride 108 mmol/L (98-107); Cholesterol 188 mg/dL (200); Creatinine, Serum 0.83 mg/dL (0.70-1.30); EST Glomerular Filtration Rate 97 mL/min (>60); Est Glom Filt Rate - Afr Amer 118 mL/min (>60); Globulin 2.9 g/dL (2.2-4.2); Glucose 95 mg/dL (74-106); High Density Lipoprotein 43 mg/dL; Potassium 4.3 mmol/L (3.5-5.1); Protein, Total 6.9 g/dL (6.4-8.2); Sodium Level 138 mmol/L (136-145); Triglycerides 155 mg/dL; Very Low Density Lipoprotein 31 mg/dL (5-40)
[2024-05-20 11:09] LABS: PSA, Free 1.52 ng/mL; PSA, Free % 16.4 % (.)
== END | disposition home or self-care (01) ==
PROVIDERS: Registered Nurse; PCP Family Medicine
DX: Z01.818 Encounter for other preprocedural examination (principal); E78.6 Lipoprotein deficiency; R97.20 Elevated prostate specific antigen [PSA]
CPT/HCPCS: 36415; 80053; 80061; 84153; 84154; 85025

== ENCOUNTER → 2024-11-27 | Outpatient (CLI) | payer MEDICARE, SELFPAY ==
[2024-11-27 07:08] LABS: PSA,Total- Diagnostic 8.57 ng/mL (0.00-4.00)
== END | disposition home or self-care (01) ==
PROVIDERS: PCP Family Medicine; Referring Provider Nurse Practitioner; Visit Provider Nurse Practitioner
DX: R97.20 Elevated prostate specific antigen [PSA] (principal)
CPT/HCPCS: 36415; 84153

== ENCOUNTER → 2025-02-07 | Outpatient (CLI) | payer MEDICARE, SELFPAY ==
--- OUTSIDE RECORDS SUMMARY | 2025-02-07 06:03 | XMS RPT_ITS | CCD ---
Author Organization [facility] Care Team Providers Care Finish Grinder Name Role Phone ANGELIA GAMBOA (JAKE) Referring Unavailable PEPE MAGANA Admitting Unavailable PEPE MAGANA Attending Unavailable MAGNO RENNER Primary Care Unavailable Randal SIERRA, Patrice Correa Unavailable [phone] [place] Attending Unavailable Gauri Pham Referring Unavailable Renner, Magno Primary Care Unavailable Magno Renner Primary Care Unavailable MERNA NEFF Attending Unavailable MERNA NEFF Referring Unavailable Guy Moreno Attending Unavailable Renner, Magno Primary Care Unavailable Medications Current Medications Medication Drug Class(es) Dates Sig (Normalized) Sig (Original) [place] (Nk) (2 sources) Start: 05-04-2021 [place] (Nk) A ctive May 04, 2021 12:00am Start: 05-04-2021 [place] (Nk) A ctive May 03, 2021 11:00pm Completed/Discontinued Medications Medication Drug Class(es) Dates Sig (Normalized) Sig (Original) acetaminophen 325 mg / oxyCODONE hydrochloride 5 mg oral tablet (2 sources) Opioid Agonist Start: 07-30-2018 End: 08-04-2018 take 1 tablet by mouth every six hours as needed Oxycodone-Acetamin ophen Discontinued 1 - 2 TABLET PO EVERY 6 HOURS NEEDED 40 5 July 30, 2018 1:00am August 04, 2018 1:06am alpha lipoic acid (1 source) take 1 capsule by mouth once daily ALPHA LIPOIC ACID 200 MG CAPS 1 capsule by mouth once a day alpha lipoic acid [id number] Jessica Tracy ascorbic acid 500 mg oral tablet (1 source) Vitamin C take 1 tablet by mouth once daily C 500 500 MG TABS 1 tablet by mouth once a day ascorbic acid (vitamin c) [id number] Jessica Tracy aspirin 81 mg chewable tablet (2 sources) Platelet Aggregation Inhibitor, Nonsteroidal Anti-inflammatory Drug Start: 04-16-2016 End: 07-04-2017 take 1 tablet by mouth once daily Aspirin Discontinued 1 TABLET PO DAILY April 16, 2016 12:00am July 04, 2017 9:40am ASPIRIN 81 81 MG ORAL TABLET DELAYED RELEASE (1 source) Start: 12-01-2019 take 1 tablet by mouth once daily ASPIRIN 81 81 MG ORAL TABLET DELAYED RELEASE 1 tablet by mouth every night ASPIRIN 81 81 MG ORAL TABLET DELAYED RELEASE Jessica Tracy Baicalin-Catechin (2 sources) Start: 02-01-2016 End: 07-04-2017 take 250 mg by mouth twice daily Baicalin-Catechin Discontinued 250 MG PO TWICE A DAY February 01, 2016 12:00am July 04, 2017 9:40am Start: 02-01-2016 End: 07-04-2017 take 250 mg by mouth twice daily Baicalin-Catechin Discontinued 250 MG PO TWICE A DAY January 31, 2016 11:00pm July 04, 2017 8:40am Calcium (1 source) Phosphate Binder, Calcium take 1200 mg by mouth once daily calcium 1200 mg by mouth once a day calcium Jessica Tracy Cholecalciferol (1 source) Vitamin D take 1 tablet by mouth once daily D-5000 125 MCG (5000 UT) TABS 1 tablet by mouth once a day cholecalciferol (vitamin d3) [id number] Jessica Tracy fluticasone propionate 0.05 mg/actuat metered dose nasal spray (2 sources) Corticosteroid Start: 017 End: take 1 spray(s) nasal route once daily Fluticasone Propionate (Flonase Allergy Relief) 50 mcg/actuation spray,suspension Discontinued 2 SPRAY INTRANASAL daily 9.9 July 04, 2017 1:00am May 03, 2019 4:56pm administer into each nostril ibuprofen 200 mg oral tablet (1 source) Nonsteroidal Anti-inflammatory Drug Start: ADVIL 200 MG TABS 2 tablet by mouth as directed as needed ibuprofen [id number] Jessica Tracy MAG ASPART-POTASSIUM ASPART (1 source) Start: take 1 capsule by mouth once daily POTASSIUM & MAGNESIUM ASPARTAT 250-250 MG CAPS 1 capsule by mouth once a day MAG ASPART-POTASSIUM ASPART Jessica Tracy omega-3 fatty acids capsule (1 source) take 2 capsules by mouth once daily omega-3 fatty acids capsule 2 capsule by mouth once a day omega-3 fatty acids capsule Jessica Tracy ubidecarenone 100 mg oral capsule (1 source) CO Q-10 100 MG C APS 2 capsule by mouth once a day coenzyme q10 [id number] Jessica Tracy VITAMIN B12 500 MCG ORAL TABLET (1 source) Start: 020 take 1 tablet by mouth once daily VITAMIN B12 500 MCG ORAL TABLET 1 tablet by mouth once a day VITAMIN B12 500 MCG ORAL TABLET Jessica Tracy zinc gluconate 50 mg oral tablet (1 source) take 1 tablet by mouth once daily ZINC GLUCONATE 50 MG TABS 1 tablet by mouth once a day zinc [id number] Jessica Tracy Problems Active Problems Problem Classification Problem Date Documented Date Episodic/Chronic Other connective tissue disease (3 sources) Presence of left artificial hip joint; Translations: [Status post hip replacement, left] Onset: 10-18-2018 Chronic Other connective tissue disease (1 source) Gluteal tendinitis, left hip; Translations: [GLUTEAL TENDINITIS LEFT HIP] Onset: 05-17-2019 Episodic Other nervous system disorders (2 sources) Pain in limb; Translations: [Other acute postprocedural pain] 07-31-2018 Episodic Other non-traumatic joint disorders (1 source) Pain in left hip; Translations: [Pain in left hip] Onset: 11-12-2018 Episodic Other screening for suspected conditions (not mental disorders or infectious disease) (2 sources) Elevated prostate specific antigen [PSA]; Translations: [Elevated prostate specific antigen [PSA]] Onset: 11-30-2024 Episodic Other upper respiratory infections (2 sources) Sinusitis; Translations: [Chronic sinusitis, unspecified] 05-03-2019 Chronic Other upper respiratory infections (4 sources) Upper respiratory infection; Translations: [Acute upper respiratory infection, unspecified] 09-30-2017 Episodic Superficial injury; contusion (2 sources) Hematoma of face; Translations: [Contusion of other part of head, initial encounter] 01-01-2021 Episodic Past or Other Problems Problem Classification Problem Date Documented Da te Episodic/Chronic Other connective tissue disease (2 sources) Trochanteric bursitis, left hip; Translations: [Enthesopathy of hip region] Onset: 10-28-2017 07-04-2019 Episodic Other connective tissue disease (1 source) Complete rotator cuff tear or rupture of left shoulder, not specified as traumatic; Translations: [Complete rupture of rotator cuff] Onset: 05-26-2019 05-26-2019 Episodic Other connective tissue disease (1 source) Impingement syndrome of shoulder region; Translations: [Impingement syndrome of left shoulder] Onset: 09-06-2018 09-06-2018 Episodic Other connective tissue disease (1 source) Bicipital tendinitis, right shoulder; Translations: [Bicipital tenosynovitis] Onset: 03-23-2018 03-23-2018 Episodic Other connective tissue disease (1 source) Complete rotator cuff tear or rupture of right shoulder, not specified as traumatic; Translations: [Complete rupture of rotator cuff] Onset: 03-23-2018 03-23-2018 Episodic Sprains and strains (1 source) Strain of muscle, fascia and tendon of left hip, subsequent encounter; Translations: [Other specified aftercare] Onset: 07-04-2019 07-04-2019 Episodic Unclassified (1 source) Problem Results Test Name Value Interpretation Reference Range Facility PSA,Total- Diagnosticon 11-16 PSA, DIAGNOSTIC 8.57 ng/mL High 0.00-4.00 [facility] Comment on above: Result Comment: This test was performed using the [facility] tPSA method. Measured values of a patient??sample can vary depending on the testing procedure used. PSA values determined on patient samples by different testing procedures cannot be used interchangeably. If there is a change in PSA assays while monitoring therapy, sequential testing should be performed to confirm baseline values. Performed By: #### L 501.9940 #### [facility] [address] [place], [address] PSA Total+%Freeon 05-20-2024 PSA, FREE 1.52 ng/mL Normal N/A [facility] Comment on above: Order Comment: Order Date: 05/19/24 Order Info: [id number] - PSAT%F Result Comment: Princess PAREKH methodology. Performed By: #### L 500.4100, L3110.0500, L100.0100, L500.4050 #### [facility] [address] [place], [place], [id number] (046) PSA, FREE % 16.4 Normal . [facility] Comment on above: Order Comment: Order Date: 05/19/24 Order Info: [id number] - PSAT%F Result Comment: The table below lists the probability of prostate cancer for men with non-suspicious CAMI results and total PSA between 4 and 10 ng/mL, by patient age (Gemini et al, KAIT 1998, 279:1542). % Free PSA 50-64 yr 65-75 yr 0.00-10.00% 56% 55% 10.01-15.00% 24% 35% 15.01-20.00% 17% 23% 20.01-25.00% 10% 20% >25.00% 5% 9% Please note: Gemini et al did not make specific recommendations regarding the use of percent free PSA for any other population of men. Performed at: [facility] [id number] Roll Forming Machine Set Up Operator: Carlos Samuel PhD, Phone: [phone] Performed By: #### L 500.4100, L3110.0500, L100.0100, L500.4050 #### [facility] [address] [place], [place], [id number] PSA, TOTAL ULTR 9.280 ng/mL Abnormal 0.000-4.000 [facility] Comment on above: Order Comment: Order Date: 05/19/24 Order Info: 0756-1 - PSAT%F Result Comment: Princess day ECLIA methodology. According to the [place] [employer], Serum PSA should decrease and remain at undetectable levels after radical prostatectomy. The AUA defines biochemical recurrence as an initial PSA value 0.200 ng/mL or greater followed by a subsequent confirmatory PSA value 0.200 ng/mL or greater. Values obtained with different assay methods or kits cannot be used interchangeably. Results cannot be interpreted as absolute evidence of the presence or absence of malignant disease. Performed By: #### L 500.4100, L3110.0500, L100.0100, L500.4050 #### [facility] [address] [place], [address] CBC W/Diff, Automatedon 11-0 -2023 Absolute Lymph 1.71 X10 3/uL Normal 0.83-4.51 [facility] Comment on above: Order Comment: Order Date: 05/19/24 Order Info: [id number]- - CBCD Performed By: #### L 500.4100, L3110.0500, L100.0100, L500.4050 #### [facility] [address] [place], [address] Absolute Neut 3.1 X10 3/uL Normal 2.0-7.7 [facility] Comment on above: Order Comment: Order Date: 05/19/24 Order Info: [id number]- - CBCD Performed By: #### L 500.4100, L3110.0500, L100.0100, L500.4050 #### [facility] [address] [place], [address] Basophils/100 WBC (Bld) 0.7 % Normal 0-1 [facility] Comment on above: Order Comment: Order Date: 05/19/24 Order Info: [id number]- - CBCD Performed By: #### L 500.4100, L3110.0500, L100.0100, L500.4050 #### [facility] [address] [place], [address] Eosinophils/100 WBC (Bld) 2.1 % Normal 0-5 [facility] Comment on above: Order Comment: Order Date: 05/19/24 Order Info: [id number]- - CBCD Performed By: #### L 500.4100, L3110.0500, L100.0100, L500.4050 #### [facility] [address] [place], [address] Erythrocyte distribution width (RBC) [Ratio] 12.2 % Normal 11.6-14.6 [facility] Comment on above: Order Comment: Order Date: 05/19/24 Order Info: 0184-1 - CBCD Performed By: #### L 500.4100, L3110.0500, L100.0100, L500.4050 #### [facility] [address] [place], [address] Hematocrit (Bld) [Volume fraction] 45.8 % Normal 40-54 [facility] Comment on above: Order Comment: Order Date: 05/19/24 Order Info: 0184-1 - CBCD Performed By: #### L 500.4100, L3110.0500, L100.0100, L500.4050 #### [facility] [address] [place], [address] Hemoglobin (Bld) [Mass/Vol] 16.2 g/dL Normal 13.0-16.5 [facility] Comment on above: Order Comment: Order Date: 05/19/24 Order Info: 0184-1 - CBCD Performed By: #### L 500.4100, L3110.0500, L100.0100, L500.4050 #### [facility] [address] [place], [address] IG% 0.200 Normal 0.0-0.9 [facility] Comment on above: Order Comment: Order Date: 05/19/24 Order Info: 0184-1 - CBCD Result Comment: IG% - Immature Granulocytes (promyelocytes, myelocytes and metamyelocytes) > 1% indicates that a LEFT SHIFT is Present. Performed By: #### L 500.4100, L3110.0500, L100.0100, L500.4050 #### [facility] [address] [place], [address] Lymphocytes/100 WBC (Bld) 30.5 % Normal 19-41 [facility] Comment on above: Order Comment: Order Date: 05/19/24 Order Info: 0184-1 - CBCD Performed By: #### L 500.4100, L3110.0500, L100.0100, L500.4050 #### [facility] [address] [place], [address] MCH (RBC) [Entitic mass] 33.3 pg High 27.0-32.0 [facility] Comment on above: Order Comment: Order Date: 05/19/24 Order Info: 0184-1 - CBCD Performed By: #### L 500.4100, L3110.0500, L100.0100, L500.4050 #### [facility] [address] [place], [address] MCHC (RBC) [Mass/Vol] 35.4 g/dL Normal 32-36 [facility] Comment on above: Order Comment: Order Date: 05/19/24 Order Info: 018- - CBCD Performed By: #### L 500.4100, L3110.0500, L100.0100, L500.4050 #### [facility] [address] [place], [address] MCV (RBC) [Entitic vol] 94.0 fL Normal 80-94 [facility] Comment on above: Order Comment: Order Date: 05/19/24 Order Info: 018- - CBCD Performed By: #### L 500.4100, L3110.0500, L100.0100, L500.4050 #### [facility] [address] [place], [address] Monocytes/100 WBC (Bld) 11.2 % High 0-10 [facility] Comment on above: Order Comment: Order Date: 05/19/24 Order Info: 0184-1 - CBCD Performed By: #### L 500.4100, L3110.0500, L100.0100, L500.4050 #### [facility] [address] [place], [address] Neutrophils/100 WBC (Bld) 55.3 % Normal 47-70 [facility] Comment on above: Order Comment: Order Date: 05/19/24 Order Info: 0184-1 - CBCD Performed By: #### L 500.4100, L3110.0500, L100.0100, L500.4050 #### [facility] [address] [place], [address] Nucleated RBC (Bld) [#/Vol] 0 10*3/uL Normal 0-5 [facility] Comment on above: Order Comment: Order Date: 05/19/24 Order Info: 0184-1 - CBCD Performed By: #### L 500.4100, L3110.0500, L100.0100, L500.4050 #### [facility] [address] [place], [address] Platelet mean volume (Bld) [Entitic vol] 10.1 fL Normal 6.2-12.0 [facility] Comment on above: Order Comment: Order Date: 05/19/24 Order Info: 0184-1 - CBCD Performed By: #### L 500.4100, L3110.0500, L100.0100, L500.4050 #### [facility] [address] [place], [address] Platelets (Bld) [#/Vol] 230 10*3/uL Normal 150-450 [facility] Comment on above: Order Comment: Order Date: 05/19/24 Order Info: 0184-1 - CBCD Performed By: #### L 500.4100, L3110.0500, L100.0100, L500.4050 #### [facility] [address] [place], [address] RBC (Bld) [#/Vol] 4.87 10*6/uL Normal 4.6-6.2 [facility] Comment on above: Order Comment: Order Date: 05/19/24 Order Info: 0184-1 - CBCD Performed By: #### L 500.4100, L3110.0500, L100.0100, L500.4050 #### [facility] [address] [place], [address] RDW SD 42.5 fl Normal 35.1-43.9 [facility] Comment on above: Order Comment: Order Date: 05/19/24 Order Info: 0184-1 - CBCD Performed By: #### L 500.4100, L3110.0500, L100.0100, L500.4050 #### [facility] [address] [place], [address] WBC (Bld) [#/Vol] 5.6 10*3/uL Normal 4.4-11.0 [facility] Comment on above: Order Comment: Order Date: 05/19/24 Order Info: 0184-1 - CBCD Performed By: #### L 500.4100, L3110.0500, L100.0100, L500.4050 #### [facility] [address] [place], [address] Comprehensive Metabolic Prof ilon 05-19-2024 Albumin [Mass/Vol] 4.0 g/dL Normal 3.2-5.0 [facility] Comment on above: Order Comment: Order Date: 05/19/24 Order Info: [id number] - CMP Order Info: [id number] - LIPID pre-op, monitoring elevated psa Performed By: #### L 500.4100, L3110.0500, L100.0100, L500.4050 #### [facility] [address] [place], [address] Albumin/Globulin [Mass ratio] 1.4 {ratio} Normal 0.9-2.4 [facility] Comment on above: Order Comment: Order Date: 05/19/24 Order Info: 0786-1 - CMP Order Info: [id number] - LIPID pre-op, monitoring elevated psa Performed By: #### L 500.4100, L3110.0500, L100.0100, L500.4050 #### [facility] [address] [place], [address] ALK P 62 U/L Normal 45-117 [facility] Comment on above: Order Comment: Order Date: 05/19/24 Order Info: 0786-1 - CMP Order Info: [id number] - LIPID pre-op, monitoring elevated psa Performed By: #### L 500.4100, L3110.0500, L100.0100, L500.4050 #### [facility] [address] [place], [address] ALT [Catalytic activity/Vol] 36 U/L Normal 16-61 [facility] Comment on above: Order Comment: Order Date: 05/19/24 Order Info: [id number] - CMP Order Info: [id number] - LIPID pre-op, monitoring elevated psa Performed By: #### L 500.4100, L3110.0500, L100.0100, L500.4050 #### [facility] [address] [place], [address] AST [Catalytic activity/Vol] 23 U/L Normal 15-37 [facility] Comment on above: Order Comment: Order Date: 05/19/24 Order Info: [id number] - CMP Order Info: [id number] - LIPID pre-op, monitoring elevated psa Performed By: #### L 500.4100, L3110.0500, L100.0100, L500.4050 #### [facility] [address] [place], [address] Bilirubin [Mass/Vol] 1.00 mg/dL Normal 0.20-1.00 [facility] Comment on above: Order Comment: Order Date: 05/19/24 Order Info: 0786-1 - CMP Order Info: [id number] - LIPID pre-op, monitoring elevated psa Result Comment: For patients on eltrombopag therapy, use of Dimension [place] TBIL is not recommended. Performed By: #### L 500.4100, L3110.0500, L100.0100, L500.4050 #### [facility] [address] [place], [address] BUN/CRE 22.9 RATIO High 10-20 [facility] Comment on above: Order Comment: Order Date: 05/19/24 Order Info: 0786-1 - CMP Order Info: [id number] - LIPID pre-op, monitoring elevated psa Performed By: #### L 500.4100, L3110.0500, L100.0100, L500.4050 #### [facility] [address] [place], [address] CA,Total 8.7 mg/dL Normal 8.5-10.1 [facility] Comment on above: Order Comment: Order Date: 05/19/24 Order Info: 0786-1 - CMP Order Info: [id number] - LIPID pre-op, monitoring elevated psa Performed By: #### L 500.4100, L3110.0500, L100.0100, L500.4050 #### [facility] [address] [place], [address] Chloride [Moles/Vol] 108 mmol/L High 98-107 [facility] Comment on above: Order Comment: Order Date: 05/19/24 Order Info: [id number] - CMP Order Info: [id number] - LIPID pre-op, monitoring elevated psa Performed By: #### L 500.4100, L3110.0500, L100.0100, L500.4050 #### [facility] [address] [place], [address] CO2 [Moles/Vol] 26.0 mmol/L Normal 21.0-32.0 [facility] Comment on above: Order Comment: Order Date: 05/19/24 Order Info: 0786-1 - CMP Order Info: [id number] - LIPID pre-op, monitoring elevated psa Performed By: #### L 500.4100, L3110.0500, L100.0100, L500.4050 #### [facility] [address] [place], [address] Creatinine [Mass/Vol] 0.83 mg/dL Normal 0.70-1.30 [facility] Comment on above: Order Comment: Order Date: 05/19/24 Order Info: 0786-1 - CMP Order Info: [id number] - LIPID pre-op, monitoring elevated psa Result Comment: The validity of the calculated GFR GFRAA in patients over 70 years has not been determined. Clinical correlation is essential. Performed By: #### L 500.4100, L3110.0500, L100.0100, L500.4050 #### [facility] [address] [place], [address] EST GFR - AA 118 mL/min Normal >60 [facility] Comment on above: Order Comment: Order Date: 05/19/24 Order Info: 0786-1 - CMP Order Info: [id number] - LIPID pre-op, monitoring elevated psa Result Comment: Afri can [place] GFR Calc Performed By: #### L 500.4100, L3110.0500, L100.0100, L500.4050 #### [facility] [address] [place], [address] GAP 5 Normal 5-15 [facility] Comment on above: Order Comment: Order Date: 05/19/24 Order Info: 0786-1 - CMP Order Info: [id number] - LIPID pre-op, monitoring elevated psa Performed By: #### L 500.4100, L3110.0500, L100.0100, L500.4050 #### [facility] [address] [place], [address] GFR/1.73 sq M.predicted among non-blacks MDRD (S/P/Bld) [Vol rate/Area] 97 mL/min/{1.73_m2} Normal >60 [facility] Comment on above: Order Comment: Order Date: 05/19/24 Order Info: [id number] - CMP Order Info: [id number] - LIPID pre-op, monitoring elevated psa Result Comment: Non- GFR Calc Performed By: #### L 500.4100, L3110.0500, L100.0100, L500.4050 #### [facility] [address] [place], [address] Globulin (S) [Mass/Vol] 2.9 g/dL Normal 2.2-4.2 [facility] Comment on above: Order Comment: Order Date: 05/19/24 Order Info: [id number] - CMP Order Info: [id number] - LIPID pre-op, monitoring elevated psa Performed By: #### L 500.4100, L3110.0500, L100.0100, L500.4050 #### [facility] [address] [place], [address] Glucose [Mass/Vol] 95 mg/dL Normal 74-106 [facility] Comment on above: Order Comment: Order Date: 05/19/24 Order Info: 0786-1 - CMP Order Info: [id number] - LIPID pre-op, monitoring elevated psa Performed By: #### L 500.4100, L3110.0500, L100.0100, L500.4050 #### [facility] [address] [place], [address] Potassium [Moles/Vol] 4.3 mmol/L Normal 3.5-5.1 [facility] Comment on above: Order Comment: Order Date: 05/19/24 Order Info: 0786-1 - CMP Order Info: [id number] - LIPID pre-op, monitoring elevated psa Performed By: #### L 500.4100, L3110.0500, L100.0100, L500.4050 #### [facility] [address] [place], [address] Sodium [Moles/Vol] 138 mmol/L Normal 136-145 [facility] Comment on above: Order Comment: Order Date: 05/19/24 Order Info: 0786-1 - CMP Order Info: [id number] - LIPID pre-op, monitoring elevated psa Performed By: #### L 500.4100, L3110.0500, L100.0100, L500.4050 #### [facility] [address] [place], [address] T PROT 6.9 g/dL Normal 6.4-8.2 [facility] Comment on above: Order Comment: Order Date: 05/19/24 Order Info: 0786-1 - CMP Order Info: [id number] - LIPID pre-op, monitoring elevated psa Performed By: #### L 500.4100, L3110.0500, L100.0100, L500.4050 #### [facility] [address] [place], [address] Urea nitrogen [Mass/Vol] 19 mg/dL High 7-18 [facility] Comment on above: Order Comment: Order Date: 05/19/24 Order Info: 0786-1 - CMP Order Info: [id number] - LIPID pre-op, monitoring elevated psa Performed By: #### L 500.4100, L3110.0500, L100.0100, L500.4050 #### [facility] [address] [place], [address] Lipid Profileon 05-19-2024 Cholesterol [Mass/Vol] 188 mg/dL Normal 200 [facility] Comment on above: Order Comment: Order Date: 05/19/24 Order Info: 0786-1 - CMP Order Info: [id number] - LIPID pre-op, monitoring elevated psa Result Comment: <200 mg/dL Desirable 200-240 mg/dL Borderline >240 mg/dL High Risk Performed By: #### L 500.4100, L3110.0500, L100.0100, L500.4050 #### [facility] [address] [place], [address] Cholesterol in HDL [Mass/Vol] 43 mg/dL Normal [facility] Comment on above: Order Comment: Order Date: 05/19/24 Order Info: 0786-1 - CMP Order Info: [id number] - LIPID pre-op, monitoring elevated psa Result Comment: The drugs N-Acetylcysteine and Metamizole may falsely depress this assay. Reference Range HDL <40 mg/dL Low HDL Cholesterol HDL >or= 60 mg/dL High HDL Cholesterol Performed By: #### L 500.4100, L3110.0500, L100.0100, L500.4050 #### [facility] [address] [place], [address] Cholesterol in LDL [Mass/Vol] 114 mg/dL Normal 0-130 [facility] Comment on above: Order Comment: Order Date: 05/19/24 Order Info: [id number] - CMP Order Info: [id number] - LIPID pre-op, monitoring elevated psa Performed By: #### L 500.4100, L3110.0500, L100.0100, L500.4050 #### [facility] [address] [place], [address] Cholesterol in VLDL [Mass/Vol] 31 mg/dL Normal 5-40 [facility] Comment on above: Order Comment: Order Date: 05/19/24 Order Info: [id number] - CMP Order Info: [id number] - LIPID pre-op, monitoring elevated psa Performed By: #### L 500.4100, L3110.0500, L100.0100, L500.4050 #### [facility] [address] [place], [address] Triglyceride [Mass/Vol] 155 mg/dL Normal [facility] Comment on above: Order Comment: Order Date: 05/19/24 Order Info: [id number] - CMP Order Info: [id number] - LIPID pre-op, monitoring elevated psa Result Comment: The drugs N-Acetylcysteine and Metamizole may falsely depress this assay. Serum Triglycerides Reference Interval Normal <150 mg/dL Borderline high 150 - 199 mg/dL High 200 - 499 mg/dL Very High > or = 500 mg/dL Performed By: #### L 500.4100, L3110.0500, L100.0100, L500.4050 #### [facility] [place], [address] No Panel InformationOrdered By: Dr. Moreno on 11-16-2022 Percent Free Prostate Specific Ag 0.80 ng/mL N/A [facility] Comment on above: Jay Jay ECLIA methodol ogy. Prostate Specific Ag, Ultra-Sensitv 6.020 ng/mL 0.000-4.000 [facility] Comment on above: Jay Jay ECLIA methodol ogy.According to the [employer] [place] [employer], Serum PSAshould decrease and remain at undetectable levels afterradical prostatectomy. The AUA defines biochemicalrecurrence as an initial PSA value 0.200 ng/mL or greaterfollowed by a subsequent confirmatory PSA value 0.200 ng/mLor greater. Values obtained with different assay methods orkits cannot be used interchangeably. Results cannot beinterpreted as absolute evidence of the presence or absenceof malignant disease. Serum or plasma free prostat e specific antigen/total prostate specific antigen ratioOrdered By: Dr. Moreno on 11-16-2022 Free PSA/Total PSA [Mass fraction] 13.3 % . [facility] Comment on above: The table below list s the probability of prostate cancer formen with non-suspicious CAMI results and total PSA between4 and 10 ng/mL, by patient age (Gemini et al, KAIT 1998,279:1542). % Free PSA 50-64 yr 65-75 yr 0.00-10.00% 56% 55% 10.01-15.00% 24% 35% 15.01-20.00% 17% 23% 20.01-25.00% 10% 20% >25.00% 5% 9%Please note: eGmini et al did not make specific recommendations regarding the use of percent free PSA for any other population of men.Performed at: [facility] [id number] Director: Carlos Samuel PhD, Phone: [phone] Basophil percentageOrdered B y: Dr. Moreno on 11-12-2022 Creatinine [Mass/Vol] 1.0 mg/dL 0.70-1.30 [facility] No Panel InformationOrdered By: Dr. Moreno on 11-12-2022 Bedside Estimated GFR (eGFR) > 60.0000 mL/min >60 [facility] Absolute lymphocyte countOrd ered By: Dr. Renner on 09-04-2022 Lymphocytes Auto (Unsp spec) [#/Vol] 2.04 10*3/uL 0.83-4.51 [facility] Basophil percentageOrdered B y: Dr. Renner on 09-04-2022 Basophils/100 WBC (Bld) 0.5 % 0-1 [facility] Bilirubin [Mass/Vol] 0.90 mg/dL 0.20-1.00 [facility] Comment on above: For patients on eltr ombopag therapy, use of Dimension [place] TBIL is not recommended. Chloride [Moles/Vol] 104 mmol/L 98-107 [facility] Cholesterol [Mass/Vol] 219 mg/dL <200 [facility] Comment on above: <200 mg/dL Desirable 200-240 mg/dL Borderline >240 mg/dL High Risk Eosinophils/100 WBC (Bld) 1.6 % 0-5 [facility] Glucose [Mass/Vol] 84 mg/dL 74-106 [facility] Neutrophils (Bld) [#/Vol] 3.7 10*3/uL 2.0-7.7 [facility] Neutrophils/100 WBC (Bld) 57.6 % 47-70 [facility] Potassium [Moles/Vol] 4.4 mmol/L 3.5-5.1 [facility] Protein [Mass/Vol] 7.2 g/dL 6.4-8.2 [facility] Sodium [Moles/Vol] 138 mmol/L 136-145 [facility] Triglyceride [Mass/Vol] 132 mg/dL <199 [facility] Comment on above: The drugs N-Acetylcy steine and Metamizole may falsely depress this assay.Serum Triglycerides Reference Interval Normal <150 mg/dL Borderline high 150 - 199 mg/dL High 200 - 499 mg/dL Very High > or = 500 mg/dL WBC (Bld) [#/Vol] 6.4 10*3/uL 4.4-11.0 [facility] Blood erythrocytes count (nu mber/volume)Ordered By: Dr. Renner on 09-04-2022 RBC (Bld) [#/Vol] 5.05 10*6/uL 4.6-6.2 [facility] Blood hemoglobin measurement (mass/volume)Ordered By: Dr. Renner on 09-04-2022 Hemoglobin (Bld) [Mass/Vol] 16.6 g/dL 13.0-16.5 [facility] Blood lymphocytes/100 leukoc ytesOrdered By: Dr. Renner on 09-04-2022 Lymphocytes/100 WBC (Bld) 31.8 % 19-41 [facility] Blood monocytes/100 leukocyt esOrdered By: Dr. Renner on 09-04-2022 Monocytes/100 WBC (Bld) 8.0 % 0-10 [facility] Blood platelet mean volumeOr dered By: Dr. Renner on 09-04-2022 Platelet mean volume (Bld) [Entitic vol] 10.7 fL 6.2-12.0 [facility] Determination of erythrocyte mean corpuscular volume (MCV)Ordered By: Dr. Renner on 09-04-2022 MCV (RBC) [Entitic vol] 95.8 fL 80-94 [facility] Hematocrit Auto (Bld) [Volum e fraction]Ordered By: Dr. Renner on 09-04-2022 Hematocrit (Bld) [Volume fraction] 48.4 % 40-54 [facility] - Chemistry and C hemistry - challengeOrdered By: Dr. Renner on 09-04-2022 ALP [Catalytic activity/Vol] 55 U/L 45-117 [facility] ALT [Catalytic activity/Vol] 41 U/L 16-61 [facility] CO2 [Moles/Vol] 26.0 mmol/L 21.0-32.0 [facility] Globulin (S) [Mass/Vol] 3.1 g/dL 2.2-4.2 [facility] Urea nitrogen/Creatinine [Mass ratio] 24.1 mg/mg 10-20 [facility] - Hematology and Cell countsOrdered By: Dr. Renner on 09-04-2022 Erythrocyte distribution width (RBC) [Entitic vol] 43.9 fL 35.1-43.9 [facility] Erythrocyte distribution width (RBC) [Ratio] 12.6 % 11.6-14.6 [facility] Immature granulocytes/100 WBC (Bld) 0.500 % 0.0-0.9 [facility] Comment on above: IG% - Immature Granu locytes (promyelocytes, myelocytes and metamyelocytes) > 1% indicates that a LEFT SHIFT is Present. MCH (RBC) [Entitic mass] 32.9 pg 27.0-32.0 [facility] Nucleated RBC/100 WBC (Bld) [Ratio] 0 % 0-5 [facility] MCHC Auto (RBC) [Mass/Vol]Or dered By: Dr. Renner on 09-04-2022 MCHC (RBC) [Mass/Vol] 34.3 g/dL 32-36 [facility] No Panel InformationOrdered By: Dr. Renner on 09-04-2022 Estimated GFR (MDRD) Amer 106 mL/min >60 [facility] Comment on above: GFR Calc Estimated GFR (MDRD) Non-Af Amer 87 mL/min >60 [facility] Comment on above: Non- GFR Calc Prostate Specific Antigen Screen 8.93 ng/mL 0.00-4.00 [facility] Comment on above: This test was perfor med using the TPSA assay method for theEarshot chemistry system. Values obtained with differentassay methods cannot be used interchangably.When changing PSA assays in the course of monitoring apatient, additional sequential testing should be carriedout to confirm baseline values. Vitamin D 25-Hydroxy 43.6 ng/mL [facility] Comment on above: Vitamin D 25(OH) Sta tus Range Deficiency <20 ng/mL (50nmol/L) Insufficiency 20 - 30 ng/mL (50 - 75 nmol/L) Sufficiency 30 - 100 ng/mL (75 - 250 nmol/L) Toxicity >100 ng/mL (>250 nmol/L) Platelets bldOrdered By: Dr. Renner on 09-04-2022 Platelets (Bld) [#/Vol] 239 10*3/uL 150-450 [facility] Serum or plasma albumin vin urement (mass/volume)Ordered By: Dr. Renner on 09-04-2022 Albumin [Mass/Vol] 4.1 g/dL 3.2-5.0 [facility] Serum or plasma albumin/glob ulin mass ratioOrdered By: Dr. Renner on 09-04-2022 Albumin/Globulin [Mass ratio] 1.3 {ratio} 0.9-2.4 [facility] Serum or plasma calcium vin urement (mass/volume)Ordered By: Dr. Renner on 09-04-2022 Calcium [Mass/Vol] 9.3 mg/dL 8.5-10.1 [facility] Serum or plasma cholesterol in HDL measurement (mass/volume)Ordered By: Dr. Renner on 09-04-2022 Cholesterol in HDL [Mass/Vol] 48 mg/dL >40 [facility] Comment on above: The drugs N-Acetylcy steine and Metamizole may falsely depress this assay. Reference Range HDL <40 mg/dL Low HDL Cholesterol HDL >or= 60 mg/dL High HDL Cholesterol Serum or plasma cholesterol in VLDL measurement (mass/volume)Ordered By: Dr. Renner on 09-04-2022 Cholesterol in VLDL [Mass/Vol] 26 mg/dL 5-40 [facility] Serum or plasma creatinine m easurement (mass/volume)Ordered By: Dr. Renner on 09-04-2022 Creatinine [Mass/Vol] 0.91 mg/dL 0.70-1.30 [facility] Comment on above: The validity of the calculated GFR & GFRAA in patients over 70 years has not been determined. Clinical correlation is essential. Serum or plasma low density lipoprotein (LDL) cholesterol measurement (mass/volume)Ordered By: Dr. Renner on 09-04-2022 Cholesterol in LDL [Mass/Vol] 145 mg/dL 0-130 [facility] Serum or plasma urea nitroge n measurement (mass/volume)Ordered By: Dr. Renner on 09-04-2022 Urea nitrogen [Mass/Vol] 22 mg/dL 7-18 [facility] Thin prep Papanicolaou smear with manual screeningOrdered By: Dr. Renner on 09-04-2022 Thin prep Papanicolaou smear with manual screening 30 U/L 15-37 [facility] Thin prep Papanicolaou smear with manual screening 8 5-15 [facility] Clinical Summary: Zuleika correa 09-26-2021 [facility] OP Visit Invalid Interpretation Code [facility] Work Phone: Office Visit: Follow-up by david castro Rm:on 09-26-2021 NEGATED: Highlighted rowMRI (magnetic resonance imaging) history of the left hip on 09/26/2020 at [facility] Invalid Interpretation Code [facility] Work Phone: Clinical Summary: Scanned Hi story Summaryon 09-25-2021 cause of , father Cancer Invalid Interpretation Code [facility] Work Phone: cause of , mother Cancer Invalid Interpretation Code [facility] Work Phone: Data entered by patient exercise frequency 6 days per week Invalid Interpretation Code [facility] Work Phone: Data entered by patient exercise type walking, strength training, other Invalid Interpretation Code [facility] Work Phone: data entered by patient, alcohol (ethanol or ETOH) use Yes Invalid Interpretation Code [facility] Work Phone: Data entered by patient, allergy list I don't have any Drug Allergies Invalid Interpretation Code [facility] Work Phone: data entered by patient, drug (of abuse) use No Invalid Interpretation Code [facility] Work Phone: data entered by patient, Employer Name employed Invalid Interpretation Code [facility] Work Phone: data entered by patient, exercise history Yes Invalid Interpretation Code [facility] Work Phone: data entered by patient, father's medical history Cancer High blood pressure Invalid Interpretation Code [facility] Work Phone: Data entered by patient, history of past surgeries Hip surgery other Shoulder surgery other Invalid Interpretation Code [facility] Work Phone: Data entered by patient, medication list Calcium-1200 mg-1-daily [id number]-daily [id number]-daily zinc-50 mg-1-daily Unknown Drug-Unknown Strength-Unknown Dosage-NEW Invalid Interpretation Code [facility] Work Phone: data entered by patient, mother's medical history Alcoholism Arthritis COPD Invalid Interpretation Code [facility] Work Phone: Data entered by patient, problem list I do not have any past medical illnesses or conditions Invalid Interpretation Code [facility] Work Phone: data entered by patient, social history, current smoker never smoker Invalid Interpretation Code [facility] Work Phone: data entered by patient, social history, marital status Invalid Interpretation Code [facility] Work Phone: father of patient is alive or Invalid Interpretation Code [facility] Work Phone: Housing Type: apartment, house, fpc, trailer, none house Invalid Interpretation Code [facility] Work Phone: housing unit size (asthma environmental history, housing) (from single family to don't know) 1 floor Invalid Interpretation Code [facility] Work Phone: medication comments Parnell 3 1200mg 2 royal ly Alpha Lipoic acid 200 mg daily Invalid Interpretation Code [facility] Work Phone: mother of patient is alive or Invalid Interpretation Code [facility] Work Phone: Number of dependent children No Invalid Interpretation Code [facility] Work Phone: Clinical Summary: Outcome Parada mmaryon 09-20-2021 pain intensity (Oswestry Pain Disability Index) 1 Invalid Interpretation Code [facility] Work Phone: Youth DLA20 [id number] 2 Invalid Interpretation Code [facility] Work Phone: Youth DLA20 [id number] 1 Invalid Interpretation Code [facility] Work Phone: Youth DLA20 [id number] 1 Invalid Interpretation Code [facility] Work Phone: Youth DLA20 [id number] 1 Invalid Interpretation Code [facility] Work Phone: Youth DLA20 [id number] 1 Invalid Interpretation Code [facility] Work Phone: Youth DLA20 [id number] 7 Invalid Interpretation Code [facility] Work Phone: Youth DLA20 [id number] 67.516 Invalid Interpretation Code [facility] Work Phone: Youth DLA20 [id number] 1 Invalid Interpretation Code [facility] Work Phone: Youth DLA20 [id number] 2 Invalid Interpretation Code [facility] Work Phone: diagnostic criteria for SLE #1 4 Invalid Interpretation Code [facility] Work Phone: diagnostic criteria for SLE #10 3 Invalid Interpretation Code [facility] Work Phone: diagnostic criteria for SLE #11 14 Invalid Interpretation Code [facility] Work Phone: diagnostic criteria for SLE #12 19 Invalid Interpretation Code [facility] Work Phone: diagnostic criteria for SLE #13 44.9 Invalid Interpretation Code [facility] Work Phone: diagnostic criteria for SLE #14 62.5 Invalid Interpretation Code [facility] Work Phone: diagnostic criteria for SLE #15 [phone] Invalid Interpretation Code [facility] Work Phone: diagnostic criteria for SLE #2 5 Invalid Interpretation Code [facility] Work Phone: diagnostic criteria for SLE #3 4 Invalid Interpretation Code [facility] Work Phone: diagnostic criteria for SLE #4 5 Invalid Interpretation Code [facility] Work Phone: diagnostic criteria for SLE #5 5 Invalid Interpretation Code [facility] Work Phone: diagnostic criteria for SLE #6 5 Invalid Interpretation Code [facility] Work Phone: diagnostic criteria for SLE #7 5 Invalid Interpretation Code [facility] Work Phone: diagnostic criteria for SLE #8 4 Invalid Interpretation Code [facility] Work Phone: diagnostic criteria for SLE #9 5 Invalid Interpretation Code [facility] Work Phone: US Soft Tissue Lt Lower Extr emon 05-16-2019 US Soft Tissue Lt Lower Extrem Examination: Left lateral hip (Abductor) Ultrasound Indication: [id number]: Pain of left hip joint COMPARISON: Radiographs and MRI from 11/12/2018. Findings: Multiple static sutton scale sonographic images of the left lateral hip are submitted for interpretation. I interviewed the patient and a portion of the scanning myself. There is a heterogeneous appearance of the gluteus minimus tendon insertion with regions of decreased echogenicity and shadowing calcifications. Within the limits of this study, the gluteus minimus tendon insertion appears intact. Calcifications extend to the junction of the gluteus medius/minimus tendon insertion, involving the far anterior fibers of the gluteus medius. The bulk of the gluteus minimus tendon insertion is otherwise intact and unremarkable. Mild muscular atrophy of the gluteus medius is present slightly proximal to the tendon insertion. Muscle volumes of the gluteus minimus, medius and gluteus joao are otherwise unremarkable. Impression: Tendinosis and heterotopic ossification at the gluteus minimus tendon insertion and far anterior fibers of the gluteus medius. The bulk of the gluteus medius medius tendon insertion is intact and unremarkable. There is slight muscular atrophy of the gluteus medius slightly proximal to the tendon insertion. The patient's outside MRI was read in conjunction with this study. Of note, synovial thickening or adhesions are present along the anterolateral gutter (axial images 26 and 27 of series 7) within the joint on the MRI with associated joint effusion and fluid tracking along the left psoas tendon with synovial thickening (axial images 24 and 25 of series 7). Report Dictated on Authenticated by: Kedar Daniels On: 05/16/2019 11:18 Read by: KEDAR DANIELS MD Date: 05/16/2019 11:18 [facility] ALLIED HEALTHon 11-12-2018 ALLIED HEALTH HNO ID: [id number] Author: Paddy (Carcass [employer]her) Carolyn Galaviz Service: ? Author Type: Dishcloth Folder Type: Allied Health Filed: 11/12/2018 8:12 AM Note Text: Radiology Service Progress Note PATIENT NAME: Camila Bean DATE OF SERVICE: November 12, 2018 TIME: 8:12 AM PATIENT IDENTITY VERIFICATION COMPLETED USING TWO (2) METHODS: Patient confirmed name verbally and ID band matches.. PATIENT GENDER DATA: Male PATIENT RELEVANT IMPLANT DATA REVIEWED: Yes RADIOLOGY DEPARTMENT: MR; Exam(s) Completed: Lower MSK: Hip, left PERIPHERAL IV DATA: Not applicable SIGNED BY: Carolyn Alvarado November 12, 2018 8:12 AM [facility] MRI HIP WO IVCON LTon 2018 MRI HIP WO IVCON LT * * *Final Report* * * DATE OF EXAM: Nov 12 2018 8:37AM [facility] 0206 - MRI HIP WO IVCON LT / PROCEDURE REASON: multiple diagnoses * * * * Physician Interpretation * * * * RESULT: MRI OF THE PELVIS WITHOUT CONTRAST ATTENTION LEFT HIP HISTORY: Left hip pain TECHNICAL PARAMETERS: Multiplanar, multi-sequential MR imaging of the LEFT hip was performed without contrast including screening coronal sequences of the whole pelvis. Metal artifact reduction was applied. RESULT: Pelvis and right hip: SI joints and symphysis pubis are maintained. No acute fracture is noted. There is no aggressive osseous lesion. There is mild degenerative change at the right hip with joint space narrowing, generalized chondral thinning, subchondral change, and osteophytosis. No right hip joint effusion. No muscle or tendon tear is noted. Left hip: There is susceptibility artifact related to left hip arthroplasty. Within this limitation, no periimplant osseous abnormality is noted. Sizable amount of fluid is noted in the left iliopsoas bursa. There is generalized swelling at the distal aspect of the psoas and iliacus muscles. A small amount of fluid is noted anterior to the femoral neck measuring 1.1 cm in AP thickness. No trochanteric bursal fluid is noted. IMPRESSION: 1. Left hip arthroplasty. Left iliopsoas bursitis. Small amount of fluid anterior to the left femoral neck. 2. Mild right hip degenerative change. Transcribed Using Voice Recognition Transcribe Date/Time: Nov 12 2018 8:51A Dictated by: YULIET GAVIN MD This examination was interpreted and the report reviewed and electronically signed by: YULIET GAVIN MD on Nov 12 2018 8:56AM EST [id number] [facility] Vital Signs Date Time Vital Sign Value Performing Clinician Facility NEGATED: Highlighted [id number] 12:22-0500 Body height 175.26 cm Sebastian Phuc AT [facility] Work Phone: NEGATED: Highlighted [id number] 12:22-0500 Body height 175 cm Sebastian Phuc AT [facility] Work Phone: NEGATED: Highlighted [id number] 12:22-0500 Body mass index (BMI) [Ratio] 25.2 kg/m2 Sebastian Phuc AT [facility] Work Phone: NEGATED: Highlighted [id number] 12:22-0500 Body weight 77.11 kg Sebastian Phuc AT [facility] Work Phone: NEGATED: Highlighted [id number] 12:22-0500 Body weight 77 kg Sebastian Phuc AT [facility] Work Phone: Encounters Encounter Date Encounter Type Care Provider Facility Start: 01-25-2025 ambulatory Guy Rosales lity:[facility] Start: 11-27-2024 End: 11-27-2024 ambulatory Gauri Clarkston Facility:[facility] Start: 10-12-2024 Encounter for other preprocedural examination MERNA NEFF [facility] Start: 05-19-2024 End: 05-19-2024 ambulatory Magno Renner Facility:[facility] Start: 11-16-2022 End: 11-16-2022 ambulatory [facility] Work Phone: Start: 11-16-2022 End: 11-16-2022 Patient encounter procedure [facility] Start: 11-12-2022 End: 11-12-2022 Patient encounter procedure [facility] Start: 09-04-2022 End: 09-04-2022 ambulatory [facility] Work Phone: Start: 09-04-2022 End: 09-04-2022 Patient encounter procedure [facility], Aurelia Villareal Start: 05-16-2019 End: 05-16-2019 Patient encounter procedure [facility] Start: 11-12-2018 Patient encounter procedure GALAN (PA) [facility] Procedures Date Procedure Procedure Detail Performing Clinician Start: 11-12-2022 MRI of pelvis with contrast Start: 09-26-2021 End: 09-26-2021 BP scrn no perf at interval Patrice Tee PA-C Work Phone: Start: 09-26-2021 End: 09-26-2021 Calc BMI abv up shaheen f/u Patrice Tee PA-C Work Phone: Start: 09-26-2021 End: 09-26-2021 Current tobacco non-user cad cap copd pv dm Patrice Tee PA-C Work Phone: Start: 09-26-2021 End: 09-26-2021 Docrev cur meds by elig clin Patrice Tee PA-C Work Phone: Start: 09-26-2021 End: 09-26-2021 Pain doc pos and plan Patrice Delgado Work Phone: Start: 09-26-2021 End: 09-26-2021 Patient encounter procedure Patrice Tee PA-C Work Phone: NEGATED: Highlighted rowStart: 09-26-2021 End: 09-26-2021 Documentation of current medications Sebastian Phuc AT Plan of Treatment Date Care Activity Detail Author Start: 09-26-2021 End: 09-26-2021 Patient encounter procedure Appointment [facility] Work Phone: Immunizations Immunization Date Immunization Notes Care Provider Cora aponte 02-01-2016 tetanus toxoid, redu betsy diphtheria toxoid, and acellular pertussis vaccine, adsorbed [facility] Payers Date Payer Category Payer Private Health Insurance [id number] 2024 Medicare [id number] 2024 Self-pay [id number] 1961 Unknown [id number] 1955 Unknown [id number] Unknown [facility] [id number] Unknown [id number] Unknown [id number] Unknown [id number] Social History Date Type Detail Facility Start: 05-04-2021 End: 05-04-2021 Assertion Unknown if ever smoked [facility] Work Phone: Start: 1955 Sex Assigned At Male [facility] NEGATED: Highlighted rowStart: 09-26-2021 End: 09-26-2021 Employment detail Employment detail [facility] Work Phone: Evaluation note Note Date & Type Note Facility Evaluation note There may be informa tion available, but it has not been provided by the sender. [facility] Work Phone: Evaluation note Note Date & Type Note Facility Evaluation note No assessment information availa ble [facility] Work Phone: Instructions Note Date & Type Note Facility Instructions CompletedPatient advised to follow-up with Primary Care Physician for BMI management. [facility] Work Phone: Summary Purpose Family History No Family History Records FoundNo Family History Records FoundThere may be information available, but it has not been provided by the sender.No Family History Records Found Advance Directives No Advanced Directives Records Found Advance Directive Response Recorded Date/ Time Advance Directives No March 5:19am Living Will No May 04 5:17am Power of Chip Washer No May 04, 2021 5:17am Advance Directive Response Recorded Date/ Time Advance Directives No March 6:19am Living Will No May 04 6:17am Power of Chip Washer No May 04, 2021 6:17am Chief Complaint Chief Complaint Description Start Date left hip pain Preliminary chief co mplaint data, not yet signed by the author as of Chief Complaint and Reason for Visit Chief Complaint ELEVATED PSA Additional Source Comments (unrecognized sect ion and content) No Status Records FoundNo Status Records FoundNo Status Records Found INFORMATION SOURCE (unrecogn ized section and content) DATE CREATED AUTHOR 11/15/2018 [facility] DATE CREATED AUTHOR AUTHOR'S ORGANIZ ATION 06/05/2019 [facility] DATE CREATED AUTHOR AUTHOR'S ORGANIZ ATION 01/29/2025 [facility] Reason for Visit (unrecogniz ed section and content) Reason For Visit Description Follow-up by complaint Preliminary reason f or visit data, not yet signed by the author as of left hip pain Care Teams (unrecognized sec tion and content) Team Status: Active Member Role Status Dates Dr. Magno Renner MD Family Provider Active Dr. Magno Renner MD Primary Care Provider Active Team Status: Inactive Member Role Status Dates Dr. Magno Renner MD Primary Care Provide r, Attending Provider, Referring Provider Active Team Status: Inactive Member Role Status Dates Dr. Magno Renner MD Primary Care Provider Active Dr. Guy Moreno MD Attending Provider, Referr ing Provider Active Goals (unrecognized section and content) Goals may be documented in a n alternate sectionGoals may be documented in an alternate section FOR RECORDS PERTAINING TO PATIENTS WHO ARE OR HAVE BEEN ENROLLED IN A CHEMICAL DEPENDENCY/SUBSTANCEABUSE PROGRAM, SOME INFORMATION MAY BE OMITTED. This clinical summary was aggregated from multiple sources. Caution should be exercised in using it in the provision of clinical care. This summary normalizes information from multiple sources, and as a consequence, information in this document may materially change the coding, format and clinical context of patient data. In addition, data may be omitted in some cases. CLINICAL DECISIONS SHOULD BE BASED ON THE PRIMARY CLINICAL RECORDS. [employer] [facility]. provides no warranty or guarantee of the accuracy or completeness of information in this document.
[2025-02-07 07:01] LABS: Hematocrit 45.4 % (40-54); Hemoglobin 16.3 g/dL (13.0-16.5); Immature Granulocytes Count 0.020 X10^3/uL (0.0-0.0); Mean Corp Hgb Conc 35.9 g/dL (32-36); Mean Corpuscular Volume 94.0 fL (80-94); Mean Platelet Vol. 9.9 fl (6.2-12.0); NRBC Flagged by Analyzer 0 % (0-5); Platelet Count 205 K/mm3 (150-450); RBC Distribution Width CV 12.8 % (11.6-14.6); RBC Distribution Width SD 44.1 fl (35.1-43.9); Red Blood Count 4.83 M/mm3 (4.6-6.2); White Blood Count 6.9 K/mm3 (4.4-11.0)
[2025-02-07 07:39] LABS: AST(SGOT) 24 U/L (<=37); Alanine Aminotransfer ALT/SGPT 25 U/L (<=46); Albumin, Serum 4.1 g/dL (3.4-4.8); Alkaline Phosphatase 55 U/L (40-129); Anion Gap 12 (5-15); BUN 18 mg/dL (4-19); BUN/Creat Ratio 19.6 RATIO (10-20); CRP < 3.00 mg/L (0.0-3.0); Calcium,Total 9.3 mg/dL (7.6-11.0); Carbon Dioxide 23.3 mmol/L (21.0-32.0); Chloride 105 mmol/L (98-108); Globulin 2.3 g/dL (2.2-4.2); Glucose 104 mg/dL (70-99); Potassium 3.9 mmol/L (3.3-5.1)
[2025-02-12 16:08] LABS: Arsenic 7245 3 ug/L (0-9); Lead, Blood 4.2 ug/dL (0.0-3.4); Mercury, Blood 85324 3.5 ug/L (0.0-14.9)
== END | disposition home or self-care (01) ==
PROVIDERS: PCP Family Medicine; Referring Provider Family Medicine; Visit Provider Family Medicine
DX: M25.552 Pain in left hip (principal); G89.29 Other chronic pain
CPT/HCPCS: 36415; 80053; 82175; 83655; 83825; 85025; 85652; 86140

== ENCOUNTER → 2025-03-07 | Outpatient (CLI) | payer MEDICARE, SELFPAY ==
--- NOTE | 2025-03-07 11:25 | MRI_ITS ---
PROCEDURE: LOWER EXT JOINT ONLY (ROUTINE) 03/07/2025 REASON FOR EXAM: LEFT HIP PAIN TECHNIQUE: T1, T2, PD, LOWER EXT JOINT ONLY (ROUTINE) Multiplanar and multisequence images were obtained without IV contrast administration. COMPARISON: COMPARISON : None FINDINGS: Bone Marrow: There is metallic artifact in the left hip with limited anatomic detail. The visualized portion of the pelvis shows normal marrow signal. Effusion: There is a fluid collection anterior to the hip joint space, extending along the posterior aspect of the iliopsoas, measuring 5.6 x 2.4 by 5.2 cm, with internal intermediate T2 signal components, iliopsoas bursitis. Soft Tissues: There is increased fluid in the trochanteric bursa with bursitis, with visible severe distal gluteus minimus and gluteus medius tendinopathy, without full-thickness tear. There is a large joint effusion. Ligaments and Tendons: The hamstring origins appear intact. The prostate has a heterogeneous enlarged nodular appearance, incompletely visualized. Colonic diverticulosis is visible. MRI/Lower Ext Joint Only (Routine) IMPRESSION: There is a fluid collection anterior to the hip joint space, extending along th e posterior aspect of the iliopsoas, measuring 5.6 x 2.4 by 5.2 cm, with internal intermediate T2 signal components, iliopsoas bur sitis. There is increased fluid in the trochanteric bursa with bursitis, with visible severe distal gluteus minimus and gluteus medius tendinopathy, without full-thickness tear. There is a large joint effusion. Reading Location: [facility]
== END | disposition home or self-care (01) ==
LOC: OPMRI 11:10
PROVIDERS: PCP Family Medicine
DX: M25.552 Pain in left hip (principal)
CPT/HCPCS: 73721

== ENCOUNTER → 2025-03-16 | Outpatient (CLI) | payer MEDICARE, SELFPAY ==
--- OUTSIDE RECORDS SUMMARY | 2025-03-16 05:57 | XMS RPT_ITS | CCD ---
Author Organization [facility] Care Team Providers Care Forestry Fire Aide Name Role Phone ANGELIA GAMBOA (JAKE) Referring Unavailable PEPE MAGANA Admitting Unavailable PEPE MAGANA Attending Unavailable ZURDO, MAGNO Primary Care Unavailable Randal SIERRA, Patrice Correa Unavailable [phone] Juan GARCIA, Esme Salas Unavailable [phone] Kip Medina MD Unavailable [phone] Magno Renner MD Unavailable CAMRON CLEMONS Attending Unavailable CAMRON CLEMONS Referring Unavailable Zurdo, Magno Primary Care Unavailable Zurdo, Magno Primary Care Unavailable CAMRON CLEMONS Attending Unavailable CAMRON CLEMONS Referring Unavailable Guy Moreno Attending Unavailable Guy Moreno Referring Unavailable Renner, Magno Primary Care Unavailable Renner, Magno Primary Care Unavailable ClevelandGauri Attending Unavailable ClevelandGauri Referring Unavailable Renner, Magno Primary Care Unavailable Renner Magno Attending Unavailable Renner, Magno Referring Unavailable Medications Current Medications Medication Drug Class(es) Dates Sig (Normalized) Sig (Original) ALPHA LIPOIC ACID (ALPHA-LIPOIC ACID) 200 MG CAPS (1 source) take 1 capsule by mouth once daily alpha lipoic acid 200 mg capsule 1 capsule by mouth once a day active [employer]. Calcium (2 sources) Phosphate Binder, Calcium take 1200 mg by mouth once daily calcium 1200 mg by mouth once a day active [employer] take 1200 mg by mouth once daily calcium 1200 mg by mouth once a day calcium Jessica [employer] Cholecalciferol (2 sources) Vitamin D take 1 tablet by марина th once daily Vitamin D3 125 mcg (5,000 unit) tablet 1 tablet by mouth once a day active [employer] take 1 tablet by mouth once surendra y D-5000 125 MCG (5000 UT) TABS 1 tablet by mouth once a day cholecalciferol (vitamin d3) [id number] Jessica Tracy [place] (Nk) (2 sources) Start: 05-04-2021 [place] (Nk) A ctive May 04, 2021 12:00am Start: 05-04-2021 [place] (Nk) A ctMay 03, 2021 11:00pm omega-3 fatty acids capsule (2 sources) take 2 capsules by m outh once daily omega-3 fatty acids capsule 2 capsule by mouth once a day active [employer]. take 2 capsules by mouth once da misha omega-3 fatty acids capsule 2 capsule by mouth once a day omega-3 fatty acids capsule Jessica Cruzers POTASSIUM & MAGNESIUM ASPARTAT 250-250 MG CAPS (1 source) Start: 08-03-2018 take 1 capsule by mouth once daily POTASSIUM & MAGNESIUM ASPARTAT 250-250 MG CAPS 1 capsule by mouth once a day active Jessica [employer] ubidecarenone 100 mg oral capsule (2 sources) take 2 capsules by mouth once daily Co Q-10 100 mg capsule 2 capsule by mouth once a day active [employer] VITAMIN B12 500 MCG ORAL TABLET (2 sources) Start: 12-01-2019 take 1 tablet by mouth once daily VITAMIN B12 500 MCG ORAL TABLET 1 tablet by mouth once a day active Erna Ceballos [facility] Start: 12-01-2019 take 1 tablet by марина th once daily VITAMIN B12 500 MCG ORAL TABLET 1 tablet by mouth once a day VITAMIN B12 500 MCG ORAL TABLET Jessica Cruzers Vitamin C 500 mg tablet (1 source) take 1 tablet by марина th once daily Vitamin C 500 mg tablet 1 tablet by mouth once a day active [employer]. zinc gluconate 50 mg oral tablet (2 sources) take 1 tablet by марина th once daily zinc 50 mg tablet 1 tablet by mouth once a day active [employer] Completed/Discontinued Medications Medication Drug Class(es) Dates Sig [...] mouth once a day alpha lipoic acid [id number] Jessica Tracy ascorbic acid 500 mg oral tablet (1 source) Vitamin C take 1 tablet by mouth once daily C 500 500 MG TABS 1 tablet by mouth once a day ascorbic acid (vitamin c) [id number] Jessica Tracy aspirin 81 mg chewable tablet [...] 31, 2016 11:00pm July 04, 2017 8:40am fluticasone propionate 0.05 mg/actuat metered dose nasal spray (2 sources) Corticosteroid Start: 07-04-2017 End: 05-03-2019 take 1 spray(s) nasal route once daily Fluticasone Propionate (Flonase Allergy Relief) 50 mcg/actuation spray,suspension Discontinued 2 SPRAY INTRANASAL daily 9.9 July 04, 2017 1:00am May 03, 2019 4:56pm administer into each nostril ibuprofen 200 mg oral tablet (1 source) Nonsteroidal Anti-inflammatory Drug Start: 12-01-2019 ADVIL 200 MG TABS 2 tablet by mouth as directed as needed ibuprofen [id number] Jessica Tracy MAG ASPART-POTASSIUM ASPART (1 source) Start: 08-03-2018 take 1 capsule by mouth once daily POTASSIUM & MAGNESIUM ASPARTAT 250-250 MG CAPS 1 capsule by mouth once a day MAG ASPART-POTASSIUM ASPART Jessica Tracy Problems Active Problems Problem Classification Problem Date Documented Date Episodic/Chronic Other connective tissue disease (3 sources) Presence of left artificial hip joint; Translations: [Status post hip replacement, left] Onset: 10-18-2018 Chronic Other connective tissue disease (1 source) History of left hip replacement; Translations: [Presence of left artificial hip joint] Onset: 02-20-2025 02-20-2025 Chronic Other connective tissue disease (1 source) Gluteal tendinitis, left hip; Translations: [GLUTEAL TENDINITIS LEFT HIP] Onset: 05-17-2019 Episodic Other nervous system disorders (2 sources) Pain in limb; Translations: [Other acute postprocedural pain] 07-31-2018 Episodic Other non-traumatic joint disorders (2 sources) Pain in left hip; Translations: [Pain in [...] Da te Episodic/Chronic Other connective tissue disease (3 sources) Trochanteric bursitis, left hip; Translations: [Enthesopathy of hip region] Onset: 10-28-2017 07-04-2019 Episodic Other connective tissue disease (2 sources) Complete rotator cuff tear or rupture of left shoulder, not specified as traumatic; Translations: [Complete rupture of rotator cuff] Onset: 05-26-2019 05-26-2019 Episodic Other connective tissue disease (2 sources) Impingement syndrome of shoulder region; Translations: [Impingement syndrome of left shoulder] Onset: 09-06-2018 09-06-2018 Episodic Other connective tissue disease (2 sources) Bicipital tendinitis, right shoulder; Translations: [Bicipital tenosynovitis] Onset: 03-23-2018 03-23-2018 Episodic Other connective tissue disease (2 sources) Complete rotator cuff tear or rupture of right shoulder, not specified as traumatic; Translations: [Complete rupture of rotator cuff] Onset: 03-23-2018 03-23-2018 Episodic Sprains and strains (2 sources) Strain of muscle, fascia and tendon of left hip, subsequent encounter; Translations: [Other specified aftercare] Onset: 07-04-2019 07-04-2019 Episodic Unclassified (1 source) Problem Results Test Name Value Interpretation Reference Range Facility Lower Ext Joint Only (Routin e)on 03-07-2025 Lower Ext Joint Only (Routine) [facility] Imaging Services [address] [place] [address] Lower Ext Joint Only (Routine) MR#: [id number] Acct: [id number] Name: CAMILA BEAN Rep #: [id number] : 1955 M 69 From: Oziel Villavicencio MD PCP: Dr. Magno Renner MD Status: REG CLI Study: Lower Ext Joint Only (Routine) Date of Exam: 0 03/07/25 Exam# [id number] Ordering Dr: ESME MARTINEZ PROCEDURE: LOWER EXT JOINT ONLY (ROUTINE) 03/07/2025 REASON FOR EXAM: LEFT HIP PAIN TECHNIQUE: T1, T2, PD, LOWER EXT JOINT ONLY (ROUTINE) Multiplanar and multisequence images were obtained without IV contrast administration. COMPARISON: COMPARISON : None FINDINGS: Bone Marrow: There is metallic artifact in the left hip with limited anatomic detail. The visualized portion of the pelvis shows normal marrow signal. Effusion: There is a fluid collection anterior to the hip joint space, extending along the posterior aspect of the iliopsoas, measuring 5.6 x 2.4 by 5.2 cm, with internal intermediate T2 signal components, iliopsoas bursitis. Soft Tissues: There is increased fluid in the trochanteric bursa with bursitis, with visible severe distal gluteus minimus and gluteus medius tendinopathy, without full-thickness tear. There is a large joint effusion. Ligaments and Tendons: The hamstring origins appear intact. The prostate has a heterogeneous enlarged nodular appearance, incompletely visualized. Colonic diverticulosis is visible. MRI/Lower Ext Joint Only (Routine) IMPRESSION: There is a fluid collection anterior to the hip joint space, extending along the posterior aspect of the iliopsoas, measuring 5.6 x 2.4 by 5.2 cm, with internal intermediate T2 signal components, iliopsoas bursitis. There is increased fluid in the trochanteric bursa with bursitis, with visible severe distal gluteus minimus and gluteus medius tendinopathy, without full-thickness tear. There is a large joint effusion. Reading Location: [facility] CC: ESME MARTINEZ; Dr. Magno Renner MD Technical Account Representative: Signed Normal [facility] Relevant diagnostic tests/la boratory data Narrativeon 02-27-2025 Fall risk assessment no [employer]. Work Phone: MEDS REVIEW Done [employer] Work Phone: MEDS REVIEWD Medications reviewed without changes [employer] Work Phone: Relevant diagnostic tests/la boratory data Narrativeon 02-20-2025 Fall risk assessment no [employer] Work Phone: MEDS REVIEW Done [employer] Work Phone: MEDS REVIEWD Medications reviewed with changes [employer] Work Phone: [employer], Bloodon 2024 ARSENIC,BLOOD 3 ug/L Normal 0-9 [facility] Comment on above: Order Comment: Test( s) 917401-Twbk, Blood; 904777-Pqxdrdc, Blood; 368990- Mercury, Blood was developed and its performance characteristics determined by [employer]. It has not been cleared or approved by the Food and Drug Administration. Result Comment: Dete ction Limit = 1 Performed By: #### L 500.4050, L100.0100, L501.6710, L101.9900, L3100.6425, L3410.9992 #### [facility] [address] [place], [place], [id number] (250) LEAD, BLOOD 4.2 ug/dL High 0.0-3.4 [facility] Comment on above: Order Comment: Test( s) 158350-Lopd, Blood; 754878-Xqjrhyq, Blood; 559908- Mercury, Blood was developed and its performance characteristics determined by [employer]. It has not been cleared or approved by the Food and Drug Administration. Result Comment: Test ing performed by Inductively coupled plasma/Mass Spectrometry. Client Requested Flag Verified by repeat analysis Environmental Exposure: WHO Recommendation <5.0 Occupational Exposure: OSHA Lead Std 40.0 ALMAS 30.0 Detection Limit = 1.0 Performed By: #### L 500.4050, L100.0100, L501.6710, L101.9900, L3100.6425, L3410.9992 #### [facility] [address] [place], [address] MERCURY,BLOOD 3.5 ug/L Normal 0.0-14.9 [facility] Comment on above: Order Comment: Test( s) 650912-Qsto, Blood; 833675-Fklnlbe, Blood; 785036- Mercury, Blood was developed and its performance characteristics determined by [employer]. It has not been cleared or approved by the Food and Drug Administration. Result Comment: Dete ction Limit = 1.0 Performed at: [address] [id number] Organization Development Consultant: Ledy Edwards MD, Phone: [phone] Performed By: #### L 500.4050, L100.0100, L501.6710, L101.9900, L3100.6425, L3410.9992 #### [facility] [address] [place], [place], [address] L3410.9992on 02-09-2025 [facility] Misc. COMMENT Normal . [facility] Comment on above: Order Comment: 40910 6 [place] PLASMA ROYAL BLUE RMT Result Comment: Test Ordered: [id number] [place], Plasma Test(s) 152139-Kczihl, Plasma was developed and its performance characteristics determined by [facility]. It has not been cleared or approved by the Food and Drug Administration. [place], Plasma 1.8 [H ] ug/L [facility] Reference Range: 0.0-0.9 Occupational Exposure: ALMAS 1.0 Detection Limit = 1.0 Performed at: [facility] [address], [place], [place] [id number] Organization Development Consultant: Nunu Cullen MD, Phone: [phone] Performed at: [address] [id number] Organization Development Consultant: Carlos Samuel PhD, Phone: [phone] Performed By: #### L 500.4050, L100.0100, L501.6710, L101.9900, L3100.6425, L3410.9992 #### [facility] [address] [place], [place], [id number] CBC W/Diff, Automatedon 01-17 Absolute Lymph 2.63 X10 3/uL Normal 0.83-4.51 [facility] Comment on above: Performed By: #### L 500.4050, L100.0100, L501.6710, L101.9900, L3100.6425, L3410.9992 #### [facility] [address] [place], [place], [id number] (641) Absolute Neut 3.5 X10 3/uL Normal 2.0-7.7 [facility] Comment on above: Performed By: #### L 500.4050, L100.0100, L501.6710, L101.9900, L3100.6425, L3410.9992 #### [facility] [address] [place], [address] Basophils/100 WBC (Bld) 0.6 % Normal 0-1 [facility] Comment on above: Performed By: #### L 500.4050, L100.0100, L501.6710, L101.9900, L3100.6425, L3410.9992 #### [facility] [address] [place], [address] Eosinophils/100 WBC (Bld) 3.2 % Normal 0-5 [facility] Comment on above: Performed By: #### L 500.4050, L100.0100, L501.6710, L101.9900, L3100.6425, L3410.9992 #### [facility] [address] [place], [address] Erythrocyte distribution width (RBC) [Ratio] 12.8 % Normal 11.6-14.6 [facility] Comment on above: Performed By: #### L 500.4050, L100.0100, L501.6710, L101.9900, L3100.6425, L3410.9992 #### [facility] [address] [place], [address] Hematocrit (Bld) [Volume fraction] 45.4 % Normal 40-54 [facility] Comment on above: Performed By: #### L 500.4050, L100.0100, L501.6710, L101.9900, L3100.6425, L3410.9992 #### [facility] [address] [place], [address] Hemoglobin (Bld) [Mass/Vol] 16.3 g/dL Normal 13.0-16.5 [facility] Comment on above: Performed By: #### L 500.4050, L100.0100, L501.6710, L101.9900, L3100.6425, L3410.9992 #### [facility] [address] [place], [address] IG% 0.300 Normal 0.0-0.9 [facility] Comment on above: Result Comment: IG% - Immature Granulocytes (promyelocytes, myelocytes and metamyelocytes) > 1% indicates that a LEFT SHIFT is Present. Performed By: #### L 500.4050, L100.0100, L501.6710, L101.9900, L3100.6425, L3410.9992 #### [facility] [address] [place], [address] Lymphocytes/100 WBC (Bld) 38.0 % Normal 19-41 [facility] Comment on above: Performed By: #### L 500.4050, L100.0100, L501.6710, L101.9900, L3100.6425, L3410.9992 #### [facility] [address] [place], [address] MCH (RBC) [Entitic mass] 33.7 pg High 27.0-32.0 [facility] Comment on above: Performed By: #### L 500.4050, L100.0100, L501.6710, L101.9900, L3100.6425, L3410.9992 #### [facility] [address] [facility] [place], [address] MCHC (RBC) [Mass/Vol] 35.9 g/dL Normal 32-36 [facility] Comment on above: Performed By: #### L 500.4050, L100.0100, L501.6710, L101.9900, L3100.6425, L3410.9992 #### [facility] [address] [place], [address] MCV (RBC) [Entitic vol] 94.0 fL Normal 80-94 [facility] Comment on above: Performed By: #### L 500.4050, L100.0100, L501.6710, L101.9900, L3100.6425, L3410.9992 #### [facility] [address] [place], [address] Monocytes/100 WBC (Bld) 8.2 % Normal 0-10 [facility] Comment on above: Performed By: #### L 500.4050, L100.0100, L501.6710, L101.9900, L3100.6425, L3410.9992 #### [facility] [address] [place], [address] Neutrophils/100 WBC (Bld) 49.7 % Normal 47-70 [facility] Comment on above: Performed By: #### L 500.4050, L100.0100, L501.6710, L101.9900, L3100.6425, L3410.9992 #### [facility] [address] [place], [address] Nucleated RBC (Bld) [#/Vol] 0 10*3/uL Normal 0-5 [facility] Comment on above: Performed By: #### L 500.4050, L100.0100, L501.6710, L101.9900, L3100.6425, L3410.9992 #### [facility] [address] [place], [address] Platelet mean volume (Bld) [Entitic vol] 9.9 fL Normal 6.2-12.0 [facility] Comment on above: Performed By: #### L 500.4050, L100.0100, L501.6710, L101.9900, L3100.6425, L3410.9992 #### [facility] [address] [place], [address] Platelets (Bld) [#/Vol] 205 10*3/uL Normal 150-450 [facility] Comment on above: Performed By: #### L 500.4050, L100.0100, L501.6710, L101.9900, L3100.6425, L3410.9992 #### [facility] [address] [place], [address] RBC (Bld) [#/Vol] 4.83 10*6/uL Normal 4.6-6.2 [facility] Comment on above: Performed By: #### L 500.4050, L100.0100, L501.6710, L101.9900, L3100.6425, L3410.9992 #### [facility] [address] [place], [address] RDW SD 44.1 fl High 35.1-43.9 [facility] Comment on above: Performed By: #### L 500.4050, L100.0100, L501.6710, L101.9900, L3100.6425, L3410.9992 #### [facility] [address] [place], [address] WBC (Bld) [#/Vol] 6.9 10*3/uL Normal 4.4-11.0 [facility] Comment on above: Performed By: #### L 500.4050, L100.0100, L501.6710, L101.9900, L3100.6425, L3410.9992 #### [facility] [address] [place], [address] CRPon 02-07-2025 C-REACTIVE PROT < 3.00 Normal 0.0-3.0 [facility] Comment on above: Performed By: #### L 500.4050, L100.0100, L501.6710, L101.9900, L3100.6425, L3410.9992 #### [facility] [address] [place], [address] Comprehensive Metabolic Prof ilon 02-07-2025 Albumin [Mass/Vol] 4.1 g/dL Normal 3.4-4.8 [facility] Comment on above: Performed By: #### L 500.4050, L100.0100, L501.6710, L101.9900, L3100.6425, L3410.9992 #### [facility] [address] [place], [address] Albumin/Globulin [Mass ratio] 1.8 {ratio} Normal 0.9-2.4 [facility] Comment on above: Performed By: #### L 500.4050, L100.0100, L501.6710, L101.9900, L3100.6425, L3410.9992 #### [facility] [address] [place], [address] ALK PHOS 55 U/L Normal 40-129 [facility] Comment on above: Performed By: #### L 500.4050, L100.0100, L501.6710, L101.9900, L3100.6425, L3410.9992 #### [facility] [address] [place], [address] ALT [Catalytic activity/Vol] 25 U/L Normal <=46 [facility] Comment on above: Performed By: #### L 500.4050, L100.0100, L501.6710, L101.9900, L3100.6425, L3410.9992 #### [facility] [address] [place], [address] AST [Catalytic activity/Vol] 24 U/L Normal <=37 [facility] Comment on above: Result Comment: Hemo lysis present, Results??could be affected. ?? Performed By: #### L 500.4050, L100.0100, L501.6710, L101.9900, L3100.6425, L3410.9992 #### [facility] [address] [place], [address] Bilirubin [Mass/Vol] 0.63 mg/dL Normal 0.00-1.30 [facility] Comment on above: Performed By: #### L 500.4050, L100.0100, L501.6710, L101.9900, L3100.6425, L3410.9992 #### [facility] [address] [place], [address] BUN/CRE 19.6 RATIO Normal 10-20 [facility] Comment on above: Performed By: #### L 500.4050, L100.0100, L501.6710, L101.9900, L3100.6425, L3410.9992 #### [facility] [address] [place], [address] Calcium [Mass/Vol] 9.3 mg/dL Normal 7.6-11.0 [facility] Comment on above: Performed By: #### L 500.4050, L100.0100, L501.6710, L101.9900, L3100.6425, L3410.9992 #### [facility] [address] [place], [address] Chloride [Moles/Vol] 105 mmol/L Normal 98-108 [facility] Comment on above: Performed By: #### L 500.4050, L100.0100, L501.6710, L101.9900, L3100.6425, L3410.9992 #### [facility] [address] [place], [address] CO2 [Moles/Vol] 23.3 mmol/L Normal 21.0-32.0 [facility] Comment on above: Performed By: #### L 500.4050, L100.0100, L501.6710, L101.9900, L3100.6425, L3410.9992 #### [facility] [address] [place], [address] Creatinine [Mass/Vol] 0.94 mg/dL Normal 0.70-1.20 [facility] Comment on above: Performed By: #### L 500.4050, L100.0100, L501.6710, L101.9900, L3100.6425, L3410.9992 #### [facility] [address] [place], [address] GAP 12 Normal 5-15 [facility] Comment on above: Performed By: #### L 500.4050, L100.0100, L501.6710, L101.9900, L3100.6425, L3410.9992 #### [facility] [address] [place], [address] GFR/1.73 sq M.predicted among non-blacks MDRD (S/P/Bld) [Vol rate/Area] 87 mL/min/{1.73_m2} Normal >60 [facility] Comment on above: Result Comment: mL/m in/1.73m2 CKD-EPI Creatinine Equation (2020) Performed By: #### L 500.4050, L100.0100, L501.6710, L101.9900, L3100.6425, L3410.9992 #### [facility] [address] [place], [address] Globulin (S) [Mass/Vol] 2.3 g/dL Normal 2.2-4.2 [facility] Comment on above: Performed By: #### L 500.4050, L100.0100, L501.6710, L101.9900, L3100.6425, L3410.9992 #### [facility] [address] [place], [address] Glucose [Mass/Vol] 104 mg/dL High 70-99 [facility] Comment on above: Performed By: #### L 500.4050, L100.0100, L501.6710, L101.9900, L3100.6425, L3410.9992 #### [facility] [address] [place], [address] Potassium [Moles/Vol] 3.9 mmol/L Normal 3.3-5.1 [facility] Comment on above: Result Comment: Hemo lysis present, Results??could be affected. ?? Performed By: #### L 500.4050, L100.0100, L501.6710, L101.9900, L3100.6425, L3410.9992 #### [facility] [address] [place], [address] Sodium [Moles/Vol] 140 mmol/L Normal 133-145 [facility] Comment on above: Performed By: #### L 500.4050, L100.0100, L501.6710, L101.9900, L3100.6425, L3410.9992 #### [facility] [address] [place], [address] T PROT 6.5 g/dL Normal 5.9-8.4 [facility] Comment on above: Performed By: #### L 500.4050, L100.0100, L501.6710, L101.9900, L3100.6425, L3410.9992 #### [facility] [address] [place], [address] Urea nitrogen [Mass/Vol] 18 mg/dL Normal 4-19 [facility] Comment on above: Performed By: #### L 500.4050, L100.0100, L501.6710, L101.9900, L3100.6425, L3410.9992 #### [facility] [address] [place], [address] Erythrocyte Sed Rateon 02-07 SED RATE < 1 Normal 0-20 [facility] Comment on above: Performed By: #### L 500.4050, L100.0100, L501.6710, L101.9900, L3100.6425, L3410.9992 #### [facility] [address] [place], [address] PSA,Total- Diagnosticon 11-16 PSA, DIAGNOSTIC 8.57 ng/mL High 0.00-4.00 [facility] Comment on above: Result Comment: This test [...] values. Performed By: #### L 501.9940 #### [facility] [address] [place], [address] PSA Total+%Freeon 05-20-2024 PSA, FREE 1.52 ng/mL Normal N/A [facility] Comment on above: Order Comment: Order Date: 05/19/24Order Info: [id number] - PSAT%F Result Comment: Princess day ECLIA methodology. Performed By: #### L 500.4050, L100.0100, L501.6710, L101.9900, L3100.6425, L3410.9992 #### [facility] [address] [place], [address] PSA, FREE % 16.4 Normal . [facility] Comment on above: Order Comment: Order Date: 05/19/24Order Info: [id number] - PSAT%F Result Comment: The table below lists the probability of prostate cancer for men with non-suspicious CAMI results and total PSA between 4 and 10 ng/mL, by patient age (Gemini et al, KAIT 1998, 279:1542). % Free PSA 50-64 yr 65-75 yr 0.00-10.00% 56% 55% 10.01-15.00% 24% 35% 15.01-20.00% 17% 23% 20.01-25.00% 10% 20% >25.00% 5% 9% Please note: Catalona et al did not make specific recommendations regarding the use of percent free PSA for any other population of men. Performed at: [facility] [id number] Organization Development Consultant: Carlos Samuel PhD, Phone: [phone] Performed By: #### L 500.4050, L100.0100, L501.6710, L101.9900, L3100.6425, L3410.9992 #### [facility] [address] [place], [address] PSA, TOTAL ULTR 9.280 ng/mL Abnormal 0.000-4.000 [facility] Comment on above: Order Comment: Order Date: 05/19/24Order Info: [id number] - PSAT%F Result Comment: Princess day ECLIA methodology. According to the [employer], Serum PSA should decrease and [...] of malignant disease. Performed By: #### L 500.4050, L100.0100, L501.6710, L101.9900, L3100.6425, L3410.9992 #### [facility] [address] [place], [place], [id number] CBC W/Diff, Automatedon 11-0 Absolute Lymph 1.71 X10 3/uL Normal 0.83-4.51 [facility] Comment on above: Order Comment: Order Date: 05/19/24 Order Info: [id number] - CBCD Performed By: #### L 3110.0500, L100.0100, L500.4050, L500.4100 #### [facility] [address] [place], [address] Absolute Neut 3.1 X10 3/uL Normal 2.0-7.7 [facility] Comment on above: Order Comment: Order Date: 05/19/24 Order Info: [id number] - CBCD Performed By: #### L 3110.0500, L100.0100, L500.4050, L500.4100 #### [facility] [address] [place], [address] Basophils/100 WBC (Bld) 0.7 % Normal 0-1 [facility] Comment on above: Order Comment: Order Date: 05/19/24 Order Info: [id number] - CBCD Performed By: #### L 3110.0500, L100.0100, L500.4050, L500.4100 #### [facility] [address] [place], [address] Eosinophils/100 WBC (Bld) 2.1 % Normal 0-5 [facility] Comment on above: Order Comment: Order Date: 05/19/24 Order Info: [id number] - CBCD Performed By: #### L 3110.0500, L100.0100, L500.4050, L500.4100 #### [facility] [address] [place], [address] Erythrocyte distribution width (RBC) [Ratio] 12.2 % Normal 11.6-14.6 [facility] Comment on above: Order Comment: Order Date: 05/19/24 Order Info: [id number] - CBCD Performed By: #### L 3110.0500, L100.0100, L500.4050, L500.4100 #### [facility] [address] [place], [address] Hematocrit (Bld) [Volume fraction] 45.8 % Normal 40-54 [facility] Comment on above: Order Comment: Order Date: 05/19/24 Order Info: [id number] - CBCD Performed By: #### L 3110.0500, L100.0100, L500.4050, L500.4100 #### [facility] [address] [place], [address] Hemoglobin (Bld) [Mass/Vol] 16.2 g/dL Normal 13.0-16.5 [facility] Comment on above: Order Comment: Order Date: 05/19/24 Order Info: [id number] - CBCD Performed By: #### L 3110.0500, L100.0100, L500.4050, L500.4100 #### [facility] [address] [place], [address] IG% 0.200 Normal 0.0-0.9 [facility] Comment on above: Order Comment: Order Date: 05/19/24 Order Info: [id number] - CBCD Result Comment: IG% - Immature Granulocytes (promyelocytes, myelocytes and metamyelocytes) > 1% indicates that a LEFT SHIFT is Present. Performed By: #### L 3110.0500, L100.0100, L500.4050, L500.4100 #### [facility] [address] [place], [address] Lymphocytes/100 WBC (Bld) 30.5 % Normal 19-41 [facility] Comment on above: Order Comment: Order Date: 05/19/24 Order Info: [id number] - CBCD Performed By: #### L 3110.0500, L100.0100, L500.4050, L500.4100 #### [facility] [address] [place], [address] MCH (RBC) [Entitic mass] 33.3 pg High 27.0-32.0 [facility] Comment on above: Order Comment: Order Date: 05/19/24 Order Info: [id number] - CBCD Performed By: #### L 3110.0500, L100.0100, L500.4050, L500.4100 #### [facility] [address] [place], [address] MCHC (RBC) [Mass/Vol] 35.4 g/dL Normal 32-36 [facility] Comment on above: Order Comment: Order Date: 05/19/24 Order Info: [id number] - CBCD Performed By: #### L 3110.0500, L100.0100, L500.4050, L500.4100 #### [facility] [address] [place], [address] MCV (RBC) [Entitic vol] 94.0 fL Normal 80-94 [facility] Comment on above: Order Comment: Order Date: 05/19/24 Order Info: [id number] - CBCD Performed By: #### L 3110.0500, L100.0100, L500.4050, L500.4100 #### [facility] [address] [place], [address] Monocytes/100 WBC (Bld) 11.2 % High 0-10 [facility] Comment on above: Order Comment: Order Date: 05/19/24 Order Info: [id number] - CBCD Performed By: #### L 3110.0500, L100.0100, L500.4050, L500.4100 #### [facility] [address] [place], [address] Neutrophils/100 WBC (Bld) 55.3 % Normal 47-70 [facility] Comment on above: Order Comment: Order Date: 05/19/24 Order Info: [id number] - CBCD Performed By: #### L 3110.0500, L100.0100, L500.4050, L500.4100 #### [facility] [address] [place], [address] Nucleated RBC (Bld) [#/Vol] 0 10*3/uL Normal 0-5 [facility] Comment on above: Order Comment: Order Date: 05/19/24 Order Info: [id number] - CBCD Performed By: #### L 3110.0500, L100.0100, L500.4050, L500.4100 #### [facility] [address] [place], [address] Platelet mean volume (Bld) [Entitic vol] 10.1 fL Normal 6.2-12.0 [facility] Comment on above: Order Comment: Order Date: 05/19/24 Order Info: [id number] - CBCD Performed By: #### L 3110.0500, L100.0100, L500.4050, L500.4100 #### [facility] [address] [place], [address] Platelets (Bld) [#/Vol] 230 10*3/uL Normal 150-450 [facility] Comment on above: Order Comment: Order Date: 05/19/24 Order Info: [id number]- - CBCD Performed By: #### L 3110.0500, L100.0100, L500.4050, L500.4100 #### [facility] [address] [place], [address] RBC (Bld) [#/Vol] 4.87 10*6/uL Normal 4.6-6.2 [facility] Comment on above: Order Comment: Order Date: 05/19/24 Order Info: [id number] - CBCD Performed By: #### L 3110.0500, L100.0100, L500.4050, L500.4100 #### [facility] [address] [place], [address] RDW SD 42.5 fl Normal 35.1-43.9 [facility] Comment on above: Order Comment: Order Date: 05/19/24 Order Info: [id number] - CBCD Performed By: #### L 3110.0500, L100.0100, L500.4050, L500.4100 #### [facility] [address] [place], [address] WBC (Bld) [#/Vol] 5.6 10*3/uL Normal 4.4-11.0 [facility] Comment on above: Order Comment: Order Date: 05/19/24 Order Info: [id number] - CBCD Performed By: #### L 3110.0500, L100.0100, L500.4050, L500.4100 #### [facility] [address] [place], [address] Comprehensive Metabolic Prof ilon 05-19-2024 Albumin [Mass/Vol] 4.0 g/dL Normal 3.2-5.0 [facility] Comment on above: Order Comment: Order Date: 05/19/24 Order Info: [id number] - CMP Order Info: [id number] - LIPID pre-op, monitoring elevated psa Performed By: #### L 3110.0500, L100.0100, L500.4050, L500.4100 #### [facility] [address] [place], [address] Albumin/Globulin [Mass ratio] 1.4 {ratio} Normal 0.9-2.4 [facility] Comment on above: Order Comment: Order Date: 05/19/24 Order Info: [id number] - CMP Order Info: [id number] - LIPID pre-op, monitoring elevated psa Performed By: #### L 3110.0500, L100.0100, L500.4050, L500.4100 #### [facility] [address] [place], [address] ALK P 62 U/L Normal 45-117 [facility] Comment on above: Order Comment: Order Date: 05/19/24 Order Info: [id number] - CMP Order Info: [id number] - LIPID pre-op, monitoring elevated psa Performed By: #### L 3110.0500, L100.0100, L500.4050, L500.4100 #### [facility] [address] [place], [address] ALT [Catalytic activity/Vol] 36 U/L Normal 16-61 [facility] Comment on above: Order Comment: Order Date: 05/19/24 Order Info: [id number] - CMP Order Info: [id number] - LIPID pre-op, monitoring elevated psa Performed By: #### L 3110.0500, L100.0100, L500.4050, L500.4100 #### [facility] [address] [place], [address] AST [Catalytic activity/Vol] 23 U/L Normal 15-37 [facility] Comment on above: Order Comment: Order Date: 05/19/24 Order Info: [id number] - CMP Order Info: [id number] - LIPID pre-op, monitoring elevated psa Performed By: #### L 3110.0500, L100.0100, L500.4050, L500.4100 #### [facility] [address] [place], [address] Bilirubin [Mass/Vol] 1.00 mg/dL Normal 0.20-1.00 [facility] Comment on above: Order Comment: Order Date: 05/19/24 Order Info: [id number] - CMP Order Info: [id number] - LIPID pre-op, monitoring elevated psa Result Comment: For patients on eltrombopag therapy, use of Dimension [place] TBIL is not recommended. Performed By: #### L 3110.0500, L100.0100, L500.4050, L500.4100 #### [facility] [address] [place], [address] BUN/CRE 22.9 RATIO High 10-20 [facility] Comment on above: Order Comment: Order Date: 05/19/24 Order Info: [id number] - CMP Order Info: [id number] - LIPID pre-op, monitoring elevated psa Performed By: #### L 3110.0500, L100.0100, L500.4050, L500.4100 #### [facility] [address] [place], [address] CA,Total 8.7 mg/dL Normal 8.5-10.1 [facility] Comment on above: Order Comment: Order Date: 05/19/24 Order Info: [id number] - CMP Order Info: [id number] - LIPID pre-op, monitoring elevated psa Performed By: #### L 3110.0500, L100.0100, L500.4050, L500.4100 #### [facility] [address] [place], [address] Chloride [Moles/Vol] 108 mmol/L High 98-107 [facility] Comment on above: Order Comment: Order Date: 05/19/24 Order Info: [id number] - CMP Order Info: [id number] - LIPID pre-op, monitoring elevated psa Performed By: #### L 3110.0500, L100.0100, L500.4050, L500.4100 #### [facility] [address] [place], [address] CO2 [Moles/Vol] 26.0 mmol/L Normal 21.0-32.0 [facility] Comment on above: Order Comment: Order Date: 05/19/24 Order Info: [id number] - CMP Order Info: [id number] - LIPID pre-op, monitoring elevated psa Performed By: #### L 3110.0500, L100.0100, L500.4050, L500.4100 #### [facility] [address] [place], [address] Creatinine [Mass/Vol] 0.83 mg/dL Normal 0.70-1.30 [facility] Comment on above: Order Comment: Order Date: 05/19/24 Order Info: [id number] - CMP Order Info: [id number] - LIPID pre-op, monitoring elevated psa Result Comment: The validity of the calculated GFR GFRAA in patients over 70 years has not been determined. Clinical correlation is essential. Performed By: #### L 3110.0500, L100.0100, L500.4050, L500.4100 #### [facility] [address] [place], [address] EST GFR - AA 118 mL/min Normal >60 [facility] Comment on above: Order Comment: Order Date: 05/19/24 Order Info: [id number] - CMP Order Info: [id number] - LIPID pre-op, monitoring elevated psa Result Comment: Afri can [place]ian GFR Calc Performed By: #### L 3110.0500, L100.0100, L500.4050, L500.4100 #### [facility] [address] [place], [address] GAP 5 Normal 5-15 [facility] Comment on above: Order Comment: Order Date: 05/19/24 Order Info: [id number] - CMP Order Info: [id number] - LIPID pre-op, monitoring elevated psa Performed By: #### L 3110.0500, L100.0100, L500.4050, L500.4100 #### [facility] [address] [place], [address] GFR/1.73 sq M.predicted among non-blacks MDRD (S/P/Bld) [Vol rate/Area] 97 mL/min/{1.73_m2} Normal >60 [facility] Comment on above: Order Comment: Order Date: 05/19/24 Order Info: [id number] - CMP Order Info: [id number] - LIPID pre-op, monitoring elevated psa Result Comment: Non- GFR Calc Performed By: #### L 3110.0500, L100.0100, L500.4050, L500.4100 #### [facility] [address] [place], [address] Globulin (S) [Mass/Vol] 2.9 g/dL Normal 2.2-4.2 [facility] Comment on above: Order Comment: Order Date: 05/19/24 Order Info: [id number] - CMP Order Info: [id number] - LIPID pre-op, monitoring elevated psa Performed By: #### L 3110.0500, L100.0100, L500.4050, L500.4100 #### [facility] [address] [place], [address] Glucose [Mass/Vol] 95 mg/dL Normal 74-106 [facility] Comment on above: Order Comment: Order Date: 05/19/24 Order Info: [id number] - CMP Order Info: [id number] - LIPID pre-op, monitoring elevated psa Performed By: #### L 3110.0500, L100.0100, L500.4050, L500.4100 #### [facility] [address] [place], [address] Potassium [Moles/Vol] 4.3 mmol/L Normal 3.5-5.1 [facility] Comment on above: Order Comment: Order Date: 05/19/24 Order Info: [id number]- - CMP Order Info: [id number] - LIPID pre-op, monitoring elevated psa Performed By: #### L 3110.0500, L100.0100, L500.4050, L500.4100 #### [facility] [address] [place], [address] Sodium [Moles/Vol] 138 mmol/L Normal 136-145 [facility] Comment on above: Order Comment: Order Date: 05/19/24 Order Info: [id number] - CMP Order Info: [id number] - LIPID pre-op, monitoring elevated psa Performed By: #### L 3110.0500, L100.0100, L500.4050, L500.4100 #### [facility] [address] [place], [address] T PROT 6.9 g/dL Normal 6.4-8.2 [facility] Comment on above: Order Comment: Order Date: 05/19/24 Order Info: [id number] - CMP Order Info: [id number] - LIPID pre-op, monitoring elevated psa Performed By: #### L 3110.0500, L100.0100, L500.4050, L500.4100 #### [facility] [address] [place], [address] Urea nitrogen [Mass/Vol] 19 mg/dL High 7-18 [facility] Comment on above: Order Comment: Order Date: 05/19/24 Order Info: [id number] - CMP Order Info: [id number] - LIPID pre-op, monitoring elevated psa Performed By: #### L 3110.0500, L100.0100, L500.4050, L500.4100 #### [facility] [address] [place], [address] Lipid Profileon 05-19-2024 Cholesterol [Mass/Vol] 188 mg/dL Normal 200 [facility] Comment on above: Order Comment: Order Date: 05/19/24 Order Info: [id number] - CMP Order Info: [id number] - LIPID pre-op, monitoring elevated psa Result Comment: <200 mg/dL Desirable 200-240 mg/dL Borderline >240 mg/dL High Risk Performed By: #### L 3110.0500, L100.0100, L500.4050, L500.4100 #### [facility] [address] [place], [address] Cholesterol in HDL [Mass/Vol] 43 mg/dL Normal [facility] Comment on above: Order Comment: Order Date: 05/19/24 Order Info: [id number] - CMP Order Info: [id number] - LIPID pre-op, monitoring elevated psa Result Comment: The drugs N-Acetylcysteine and Metamizole may falsely depress this assay. Reference Range HDL <40 mg/dL Low HDL Cholesterol HDL >or= 60 mg/dL High HDL Cholesterol Performed By: #### L 3110.0500, L100.0100, L500.4050, L500.4100 #### [facility] [address] [place], [address] Cholesterol in LDL [Mass/Vol] 114 mg/dL Normal 0-130 [facility] Comment on above: Order Comment: Order Date: 05/19/24 Order Info: [id number] - CMP Order Info: [id number] - LIPID pre-op, monitoring elevated psa Performed By: #### L 3110.0500, L100.0100, L500.4050, L500.4100 #### [facility] [address] [place], [address] Cholesterol in VLDL [Mass/Vol] 31 mg/dL Normal 5-40 [facility] Comment on above: Order Comment: Order Date: 05/19/24 Order Info: [id number] - CMP Order Info: [id number] - LIPID pre-op, monitoring elevated psa Performed By: #### L 3110.0500, L100.0100, L500.4050, L500.4100 #### [facility] [address] [place], [place], [address] Triglyceride [Mass/Vol] 155 mg/dL Normal [facility] Comment on above: Order Comment: Order Date: 05/19/24 Order Info: [id number] - CMP Order Info: [id number] - LIPID pre-op, monitoring elevated psa Result Comment: The drugs N-Acetylcysteine and Metamizole may falsely depress this assay. Serum Triglycerides Reference Interval Normal <150 mg/dL Borderline high 150 - 199 mg/dL High 200 - 499 mg/dL Very High > or = 500 mg/dL Performed By: #### L 3110.0500, L100.0100, L500.4050, L500.4100 #### [facility] [address] [place], [place], [address] No Panel InformationOrdered By: Dr. Moreno on 11-16-2022 Percent Free Prostate Specific Ag 0.80 ng/mL N/A [facility] Comment on above: Jay Jay ECLIA methodol ogy. Prostate Specific Ag, Ultra-Sensitv 6.020 ng/mL 0.000-4.000 [facility] Comment on above: Jay Jay ECLIA methodol ogy.According to the [employer], Serum PSAshould decrease and remain [...] PSA/Total PSA [Mass fraction] 13.3 % . [facility] Comment on above: The table below list s the probability of prostate cancer formen with non-suspicious CAMI results and total PSA between4 and 10 ng/mL, by patient age (Gemini et al, KAIT 1998,279:1542). % Free PSA 50-64 yr 65-75 yr 0.00-10.00% 56% 55% 10.01-15.00% 24% 35% 15.01-20.00% 17% 23% 20.01-25.00% 10% 20% >25.00% 5% 9%Please note: Gemini et al did not make specific recommendations regarding the use of percent free PSA for any other population of men.Performed at: [facility] [id number] Director: Carlos Samuel PhD, Phone: [phone] Basophil percentageOrdered B y: Dr. Moreno on 11-12-2022 Creatinine [Mass/Vol] 1.0 mg/dL 0.70-1.30 [facility] No Panel InformationOrdered By: Dr. Moreno on 11-12-2022 Bedside Estimated GFR (eGFR) > 60.0000 mL/min >60 [facility] Absolute lymphocyte countOrd ered By: Dr. Renner on 09-04-2022 Lymphocytes Auto (Unsp spec) [#/Vol] 2.04 10*3/uL 0.83-4.51 [facility] Basophil percentageOrdered B y: Dr. Renner on 09-04-2022 Basophils/100 WBC (Bld) 0.5 % 0-1 [facility] Bilirubin [Mass/Vol] 0.90 mg/dL 0.20-1.00 [facility] Comment on above: For patients on eltr ombopag therapy, use of Dimension [place] TBIL is not recommended. Chloride [Moles/Vol] 104 mmol/L 98-107 [facility] Cholesterol [Mass/Vol] 219 mg/dL <200 [facility] Comment on above: <200 mg/dL Desirable 200-240 mg/dL Borderline >240 mg/dL High Risk Eosinophils/100 WBC (Bld) 1.6 % 0-5 [facility] Glucose [Mass/Vol] 84 mg/dL 74-106 [facility] Neutrophils (Bld) [#/Vol] 3.7 10*3/uL 2.0-7.7 [facility] Neutrophils/100 WBC (Bld) 57.6 % 47-70 [facility] Potassium [Moles/Vol] 4.4 mmol/L 3.5-5.1 [facility] Protein [Mass/Vol] 7.2 g/dL 6.4-8.2 [facility] Sodium [Moles/Vol] 138 mmol/L 136-145 [facility] Triglyceride [Mass/Vol] 132 mg/dL <199 [facility] Comment on above: The drugs N-Acetylcy steine and Metamizole may falsely depress this assay.Serum Triglycerides Reference Interval Normal <150 mg/dL Borderline high 150 - 199 mg/dL High 200 - 499 mg/dL Very High > or = 500 mg/dL WBC (Bld) [#/Vol] 6.4 10*3/uL 4.4-11.0 [facility] Blood erythrocytes count (nu mber/volume)Ordered By: Dr. Renner on 09-04-2022 RBC (Bld) [#/Vol] 5.05 10*6/uL 4.6-6.2 [facility] Blood hemoglobin measurement (mass/volume)Ordered By: Dr. Renner on 09-04-2022 Hemoglobin (Bld) [Mass/Vol] 16.6 g/dL 13.0-16.5 [facility] Blood lymphocytes/100 leukoc ytesOrdered By: Dr. Renner on 09-04-2022 Lymphocytes/100 WBC (Bld) 31.8 % 19-41 [facility] Blood monocytes/100 leukocyt esOrdered By: Dr. Renner on 09-04-2022 Monocytes/100 WBC (Bld) 8.0 % 0-10 [facility] Blood platelet mean volumeOr dered By: Dr. Renner on 09-04-2022 Platelet mean volume (Bld) [Entitic vol] 10.7 fL 6.2-12.0 [facility] Determination of erythrocyte mean corpuscular volume (MCV)Ordered By: Dr. Renner on 09-04-2022 MCV (RBC) [Entitic vol] 95.8 fL 80-94 [facility] Hematocrit Auto (Bld) [Volum e fraction]Ordered By: Dr. Renner on 09-04-2022 Hematocrit (Bld) [Volume fraction] 48.4 % 40-54 [facility] Laboratory - Chemistry and C hemistry - challengeOrdered By: Dr. Renner on 09-04-2022 ALP [Catalytic activity/Vol] 55 U/L 45-117 [facility] ALT [Catalytic activity/Vol] 41 U/L 16-61 [facility] CO2 [Moles/Vol] 26.0 mmol/L 21.0-32.0 [facility] Globulin (S) [Mass/Vol] 3.1 g/dL 2.2-4.2 [facility] Urea nitrogen/Creatinine [Mass ratio] 24.1 mg/mg 10-20 [facility] Laboratory - Hematology and Cell countsOrdered By: Dr. Renner on 09-04-2022 Erythrocyte distribution width (RBC) [Entitic vol] 43.9 fL 35.1-43.9 [facility] Erythrocyte distribution width (RBC) [Ratio] 12.6 % 11.6-14.6 [facility] Immature granulocytes/100 WBC (Bld) 0.500 % 0.0-0.9 [facility] Comment on above: IG% - Immature Granu locytes (promyelocytes, myelocytes and metamyelocytes) > 1% indicates that a LEFT SHIFT is Present. MCH (RBC) [Entitic mass] 32.9 pg 27.0-32.0 [facility] Nucleated RBC/100 WBC (Bld) [Ratio] 0 % 0-5 [facility] MCHC Auto (RBC) [Mass/Vol]Or dered By: Dr. Renner on 09-04-2022 MCHC (RBC) [Mass/Vol] 34.3 g/dL 32-36 [facility] No Panel InformationOrdered By: Dr. Renner on 09-04-2022 Estimated GFR (MDRD) Amer 106 mL/min >60 [facility] Comment on above: GFR Calc Estimated GFR (MDRD) Non-Af Amer 87 mL/min >60 [facility] Comment on above: Non- GFR Calc Prostate Specific Antigen Screen 8.93 ng/mL 0.00-4.00 [facility] Comment on above: This test was perfor med using the TPSA assay method for theInterValve chemistry system. Values obtained with differentassay methods cannot be used interchangably.When changing PSA assays in the course of monitoring apatient, additional sequential testing should be carriedout to confirm baseline values. Vitamin D 25-Hydroxy 43.6 ng/mL [facility] Comment on above: Vitamin D 25(OH) Sta tus Range Deficiency <20 ng/mL (50nmol/L) Insufficiency 20 - 30 ng/mL (50 - 75 nmol/L) Sufficiency 30 - 100 ng/mL (75 - 250 nmol/L) Toxicity >100 ng/mL (>250 nmol/L) Platelets bldOrdered By: Dr. Renner on 09-04-2022 Platelets (Bld) [#/Vol] 239 10*3/uL 150-450 [facility] Serum or plasma albumin vin urement (mass/volume)Ordered By: Dr. Renner on 09-04-2022 Albumin [Mass/Vol] 4.1 g/dL 3.2-5.0 [facility] Serum or plasma albumin/glob ulin mass ratioOrdered By: Dr. Renner on 09-04-2022 Albumin/Globulin [Mass ratio] 1.3 {ratio} 0.9-2.4 [facility] Serum or plasma calcium vin urement (mass/volume)Ordered By: Dr. Renner on 09-04-2022 Calcium [Mass/Vol] 9.3 mg/dL 8.5-10.1 [facility] Serum or plasma cholesterol in HDL measurement (mass/volume)Ordered By: Dr. Renner on 09-04-2022 Cholesterol in HDL [Mass/Vol] 48 mg/dL >40 [facility] Comment on above: The drugs N-Acetylcy steine and Metamizole may falsely depress this assay. Reference Range HDL <40 mg/dL Low HDL Cholesterol HDL >or= 60 mg/dL High HDL Cholesterol Serum or plasma cholesterol in VLDL measurement (mass/volume)Ordered By: Dr. Renner on 09-04-2022 Cholesterol in VLDL [Mass/Vol] 26 mg/dL 5-40 [facility] Serum or plasma creatinine m easurement (mass/volume)Ordered By: Dr. Renner on 09-04-2022 Creatinine [Mass/Vol] 0.91 mg/dL 0.70-1.30 [facility] Comment on above: The validity of the calculated GFR & GFRAA in patients over 70 years has not been determined. Clinical correlation is essential. Serum or plasma low density lipoprotein (LDL) cholesterol measurement (mass/volume)Ordered By: Dr. Renner on 09-04-2022 Cholesterol in LDL [Mass/Vol] 145 mg/dL 0-130 [facility] Serum or plasma urea nitroge n measurement (mass/volume)Ordered By: Dr. Renner on 09-04-2022 Urea nitrogen [Mass/Vol] 22 mg/dL 7-18 [facility] Thin prep Papanicolaou smear with manual screeningOrdered By: Dr. Renner on 09-04-2022 Thin prep Papanicolaou smear with manual screening 30 U/L 15-37 [facility] Thin prep Papanicolaou smear with manual screening 8 5-15 [facility] Clinical Summary: RusswillardMaritza correa 09-26-2021 [facility] OP Visit Invalid Interpretation Code [facility] Work Phone: Office Visit: Follow-up by Gary hooks:on 09-26-2021 NEGATED: Highlighted rowMRI (magnetic resonance imaging) history of the left hip on 09/26/2020 at [facility] Invalid Interpretation Code [facility] Work Phone: Clinical Summary: Mai Koo story Summaryon 09-25-2021 cause of , father Cancer Invalid Interpretation Code [facility] Work Phone: cause of , mother Cancer Invalid Interpretation Code [facility] Work Phone: Data entered by patient exercise frequency 6 days per week Invalid Interpretation Code [facility] Work Phone: Data entered by patient exercise type walking, strength training, other Invalid Interpretation Code [facility] Work Phone: data entered by patient, alcohol (ethanol or ETOH) use Yes Invalid Interpretation Code [facility] Work Phone: Data entered by patient, allergy list I don't have any Drug Allergies Invalid Interpretation Code [facility] Work Phone: data entered by patient, drug (of abuse) use No Invalid Interpretation Code [facility] Work Phone: data entered by patient, Employer Name employed Invalid Interpretation Code [facility] Work Phone: data entered by patient, exercise history Yes Invalid Interpretation Code [facility] Work Phone: data entered by patient, father's medical history Cancer High blood pressure Invalid Interpretation Code [facility] Work Phone: Data entered by patient, history of past surgeries Hip surgery other Shoulder surgery other Invalid Interpretation Code [facility] Work Phone: Data entered by patient, medication list Calcium-1200 mg-1-daily [id number]-daily [id number]-daily zinc-50 mg-1-daily Unknown Drug-Unknown Strength-Unknown Dosage-NEW Invalid Interpretation Code [facility] Work Phone: data entered by patient, mother's medical history Alcoholism Arthritis COPD Invalid Interpretation Code [facility] Work Phone: Data entered by patient, problem list I do not have any past medical illnesses or conditions Invalid Interpretation Code [facility] Work Phone: data entered by patient, social history, current smoker never smoker Invalid Interpretation Code [facility] Work Phone: data entered by patient, social history, marital status Invalid Interpretation Code [facility] Work Phone: father of patient is alive or Invalid Interpretation Code [facility] Work Phone: Housing Type: apartment, house, assisted, trailer, none house Invalid Interpretation Code [facility] Work Phone: housing unit size (asthma environmental history, housing) (from single family to don't know) 1 floor Invalid Interpretation Code [facility] Work Phone: medication comments Bridgeton 3 1200mg 2 royal ly Alpha Lipoic acid 200 mg daily Invalid Interpretation Code [facility] Work Phone: mother of patient is alive or Invalid Interpretation Code [facility] Work Phone: Number of dependent children No Invalid Interpretation Code [facility] Work Phone: Clinical Summary: Outcome [facility] 09-20-2021 pain intensity (Oswestry Pain Disability Index) 1 Invalid Interpretation Code [facility] Work Phone: Youth DLA20 [id number] 2 Invalid Interpretation Code [facility] Work Phone: Youth DLA20 [id number] 1 Invalid Interpretation Code [facility] Work Phone: Youth DLA20 [id number] 1 Invalid Interpretation Code [facility] Work Phone: Youth DLA20 [id number] 1 Invalid Interpretation Code [facility] Work Phone: Youth DLA20 [id number] 1 Invalid Interpretation Code [facility] Work Phone: Youth DLA20 [id number] 7 Invalid Interpretation Code [facility] Work Phone: Youth DLA20 [id number] 67.516 Invalid Interpretation Code [facility] Work Phone: Youth DLA20 [id number] 1 Invalid Interpretation Code [facility] Work Phone: Youth DLA20 [id number] 2 Invalid Interpretation Code [facility] Work Phone: diagnostic criteria for SLE #1 4 Invalid Interpretation Code [facility] Work Phone: diagnostic criteria for SLE #10 3 Invalid Interpretation Code [facility] Work Phone: diagnostic criteria for SLE #11 14 Invalid Interpretation Code [facility] Work Phone: diagnostic criteria for SLE #12 19 Invalid Interpretation Code [facility] Work Phone: diagnostic criteria for SLE #13 44.9 Invalid Interpretation Code [facility] Work Phone: diagnostic criteria for SLE #14 62.5 Invalid Interpretation Code [facility] Work Phone: diagnostic criteria for SLE #15 [phone] Invalid Interpretation Code [facility] Work Phone: diagnostic criteria for SLE #2 5 Invalid Interpretation Code [facility] Work Phone: diagnostic criteria for SLE #3 4 Invalid Interpretation Code [facility] Work Phone: diagnostic criteria for SLE #4 5 Invalid Interpretation Code [facility] Work Phone: diagnostic criteria for SLE #5 5 Invalid Interpretation Code [facility] Work Phone: diagnostic criteria for SLE #6 5 Invalid Interpretation Code [facility] Work Phone: diagnostic criteria for SLE #7 5 Invalid Interpretation Code [facility] Work Phone: diagnostic criteria for SLE #8 4 Invalid Interpretation Code [facility] Work Phone: diagnostic criteria for SLE #9 5 Invalid Interpretation Code [facility] Work Phone: US Soft Tissue Lt Lower Extr emon 05-16-2019 US Soft Tissue Lt Lower Extrem Examination: Left lateral hip (Abductor) Ultrasound Indication: [id number]: Pain of left hip joint COMPARISON: Radiographs [...] by: KEDAR DANIELS MD Date: 05/16/2019 11:18 [facility] ALLIED HEALTHon 11-12-2018 ALLIED HEALTH HNO ID: [id number] Author: Paddy (Formal Wear Rental Clerk) Carolyn Galaviz Service: ? Author Type: Air Brush Decorator Type: Allied Health Filed: 11/12/2018 8:12 AM [...] Carolyn Alvarado November 12, 2018 8:12 AM [facility] MRI HIP WO IVCON LTon 2018 MRI HIP WO IVCON LT * * *Final Report* * * DATE OF EXAM: Nov 12 2018 8:37AM [facility] 0206 - MRI HIP WO IVCON LT [...] on Nov 12 2018 8:56AM EST [id number] [facility] Vital Signs Date Time Vital Sign Value Performing Clinician Facility 02-27-2025 08:41-0400 Body height 178 cm Esme Martinez MD Work Phone: [facility] 02-27-2025 08:41-0400 Body height 177.8 cm Esme Martinez MD Work Phone: [facility] 02-27-2025 08:41-0400 Body mass index (BMI) [Ratio] 25.78 kg/m2 Esme Martinez MD Work Phone: [facility] 02-27-2025 08:41-0400 Body weight 81 kg Esme Martinez MD Work Phone: [facility] 02-27-2025 08:41-0400 Body weight 81.19 kg Esme Martinez MD Work Phone: [facility] 02-27-2025 08:41-0400 BP SITE #1 Esme Martinez MD Work Phone: [facility] 02-27-2025 08:41-0400 BP SITE #2 Esme Martinez MD Work Phone: [facility] 02-27-2025 08:41-0400 Diastolic blood pressure 89 mm[Hg] Esme Martinez MD Work Phone: [facility] 02-27-2025 08:41-0400 Diastolic blood pressure 92 mm[Hg] Esme Martinez MD Work Phone: [facility] 02-27-2025 08:41-0400 Heart rate 58 /min Esme Martinez MD Work Phone: [facility] 02-27-2025 08:41-0400 HGHTCHNVIS Esme Martinez MD Work Phone: [facility] 02-27-2025 08:41-0400 Systolic blood pressure 149 mm[Hg] Esme Martinez MD Work Phone: [facility] 02-27-2025 08:41-0400 Systolic blood pressure 150 mm[Hg] Esme Martinez MD Work Phone: [facility] 02-27-2025 08:41-0400 VITALSDONE Esme Martinez MD Work Phone: [facility] NEGATED: Highlighted [id number] 12:22-0500 Body height 175.26 cm Sebastian Phuc AT [facility] Work Phone: NEGATED: Highlighted [id number] 12:22-0500 Body height 175 cm Sebastian Phuc AT [facility] Work Phone: NEGATED: Highlighted [id number] 12:22-0500 Body mass index (BMI) [Ratio] 25.2 kg/m2 Sebastian Phuc AT [facility] Work Phone: NEGATED: Highlighted [id number] 12:22-0500 Body weight 77.11 kg Sebastian Phuc AT [facility] Work Phone: NEGATED: Highlighted [id number] 12:22-0500 Body weight 77 kg Sebastian Phuc AT [facility] Work Phone: Encounters Encounter Date Encounter Type Care Provider Facility Start: 03-07-2025 End: 03-07-[address] Facility:[facility] Start: 02-27-2025 In-person encounter Esme marin MD Work Phone: [facility] Work Phone: Start: 02-27-2025 Visit out of hours Esme spaulding MD Work Phone: [facility]. Work Phone: Start: 02-07-2025 End: 02-07-2025 ambulatory Magno Renner Facility:[facility] Start: 11-27-2024 End: 11-27-2024 ambulatory [facility] Facility:[facility] Start: 10-12-2024 Encounter for other preprocedural examination CAMRON CLEMONS [facility] Start: 05-19-2024 End: 05-19-2024 ambulatory [facility] Facility:[facility] Start: 11-16-2022 End: 11-16-2022 ambulatory [facility] Work Phone: Start: 11-16-2022 End: 11-16-2022 Patient encounter procedure [facility] Start: 11-12-2022 End: 11-12-2022 Patient encounter procedure [facility]-MRI - WC Start: 09-04-2022 End: 09-04-2022 ambulatory [facility] Work Phone: Start: 09-04-2022 End: 09-04-2022 Patient encounter procedure [facility], Aurelia Villareal Start: 05-16-2019 End: 05-16-2019 Patient encounter procedure [facility] Start: 11-12-2018 [facility] Procedure Detail Performing Clinician Start: 02-27-2025 Blood pressure outsi de of normal parameters - follow-up documented Esme Martinez MD Work Phone: Start: 02-27-2025 BMI documented as ab ove normal parameters - follow-up documented Esme Martinez MD Work Phone: Start: 02-27-2025 Current tobacco non- user cad cap copd pv dm Esme Martinez MD Work Phone: Start: 02-27-2025 Documentation of cur rent medications Esme Martinez MD Work Phone: Start: 02-27-2025 Pain assessment documented as positive - no follow-up/reason not given Esme Martinez MD Work Phone: Start: 11-12-2022 MRI of pelvis with contrast Start: 09-26-2021 End: 09-26-2021 BP scrn no perf at interval Patrice Tee PA-C Work Phone: Start: 09-26-2021 End: 09-26-2021 Calc BMI abv up shaheen f/u Patrice Tee PA-C Work Phone: Start: 09-26-2021 End: 09-26-2021 Current tobacco non-user cad cap copd pv dm Patrice Tee PA-C Work Phone: Start: 09-26-2021 End: 09-26-2021 Docrev cur meds by alfredo Tee PA-C Work Phone: Start: 09-26-2021 End: 09-26-2021 Pain doc pos and plan Patrice Delgado Work Phone: Start: 09-26-2021 End: 09-26-2021 Patient encounter procedure Patrice Tee PA-C Work Phone: NEGATED: Highlighted rowStart: 09-26-2021 End: 09-26-2021 Documentation of current medications Sebastian Friend AT Plan of Treatment Date Care Activity Detail Author Start: 05-19-2025 ambulatory Ambulatory Facility:[facility] Start: 02-27-2025 Mri any jt lower ext rem w/o contrast matrl [employer] [facility] Work Phone: Start: 02-27-2025 Radex hip unilateral with pelvis 2-3 views [facility] [facility] Work Phone: Start: 09-26-2021 End: 09-26-2021 Patient encounter procedure Appointment [facility] Work Phone: Immunizations Immunization Date Immunization Notes Care Provider Cora aponte 02-01-2016 tetanus toxoid, redu betsy diphtheria toxoid, and acellular pertussis vaccine, adsorbed [facility] Payers Date Payer Category Payer Medicare [id number] 2024 Medicare [id number] 2024 Self-pay [id number] 1961 Unknown [id number] 1955 Unknown [id number] Unknown [facility] [id number] Unknown [id number] [id number] [id number] Unknown [id number] [id number] [id number] Unknown [id number] 2.16.8 [id number] Unknown [id number] 2.16.8 [id number] Unknown [id number] [id number] [id number] Social History Date Type Detail Facility Start: 05-04-2021 End: 05-04-2021 Assertion Unknown if ever smoked [facility] Work Phone: Start: 1955 Sex Assigned At Male [facility] Start: 02-27-2025 social history reviewed [employer] Work Phone: NEGATED: Highlighted rowStart: 09-26-2021 End: 09-26-2021 Employment detail Employment detail [facility] Work Phone: Mental Status Date Assessment Result Facility 02-27-2025 Cognitive Function house [employer] Work Phone: Evaluation note Note Date & Type Note Facility Evaluation note There may be informa tion available, but it has not been provided by the sender. [facility] Work Phone: Evaluation note Note Date & Type Note Facility Evaluation note No assessment information availa [facility] Work Phone: Instructions Note Date & Type Note Facility Instructions CompletedPatient advised to follow-up with Primary Care Physician for BMI management. [facility] Work Phone: Summary Purpose Family History No Family History Records Found Family Member Condition Mother Arthritis Father High blood pressure Mother COPD Mother Alcoholism Full Brother High blood pressure Full Brother Diabetes - non-insul in dependent Full Brother Alcoholism Father Diabetes - non-insul in dependent Father Cancer Father Mother Cancer Mother Advance Directives No Advanced Directives Records Found Advance Directive Response Recorded Date/ Time Advance Directives No March 5:19am Living Will No May 04 5:17am Power of Cooker Cleaner No May 04, 2021 5:17am Advance Directive Response Recorded Date/ Time Advance Directives No March 6:19am Living Will No May 04 6:17am Power of Cooker Cleaner No May 04, 2021 6:17am Chief Complaint [...] section and content) [facility] DATE CREATED AUTHOR AUTHOR'S ORGANIZ ATION 06/05/[address] [facility] DATE CREATED AUTHOR AUTHOR'S ORGANIZ ATION 03/16/2025 [facility] Reason for Visit (unrecogniz ed section [...] may be documented in an alternate section No Information Available FOR RECORDS PERTAINING TO PATIENTS WHO ARE [...] BE BASED ON THE PRIMARY CLINICAL RECORDS. Actual Experience [facility]. provides no warranty or guarantee of the accuracy or completeness of information in this document.
== END | disposition home or self-care (01) ==
PROVIDERS: PCP Family Medicine
DX: T84.091A Other mechanical complication of internal left hip prosthesis, initial encounter (principal); X58.XXXA Exposure to other specified factors, initial encounter
CPT/HCPCS: 36415

== ENCOUNTER → 2025-07-18 | Outpatient (CLI) | payer MEDICARE, SELFPAY ==
--- OUTSIDE RECORDS SUMMARY | 2025-07-18 15:27 | XMS RPT_ITS | CCD ---
Author Organization [facility] Care Team Providers Care Dairy Farm Manager Name Role Phone ANGELIA GAMBOA (JAKE) Referring Unavailable PEPE MAGANA Admitting Unavailable PEPE MAGANA Attending Unavailable ZURDO, MAGNO Primary Care Unavailable Randal SIERRA, Patrice Correa Unavailable [phone] Juan GARCIA, Esme Salas Unavailable [phone] Kip Medina MD Unavailable Magno Renner MD Unavailable Zurdo, Magno Primary Care Unavailable HAMMER, DANI Referring Unavailable HAMMER, BAR Attending Unavailable Renner, Magno Referring Unavailable Renner, Magno Attending Unavailable Renner, Magno Primary Care Unavailable Renner, Mango Primary Care Unavailable Slidell, Gauri Referring Unavailable Slidell, Gauri Attending Unavailable Renner, Magno Primary Care Unavailable HAMMER, BAR Referring Unavailable HAMMER, BAR Attending Unavailable Renner, Magno Primary Care Unavailable Guy Moreno Referring Unavailable Josh, Guy Lomas Attending Unavailable HAMMER, BAR Attending Unavailable Renner, Magno Primary Care Unavailable HAMMER, BAR Referring Unavailable Medications Current Medications Medication Drug Class(es) Dates Sig (Normalized) Sig (Original) ALPHA LIPOIC ACID (ALPHA-LIPOIC ACID) 200 MG CAPS (2 sources) take 1 capsule by mouth once daily alpha lipoic acid 200 mg capsule 1 capsule by mouth once a day active [facility] Calcium (3 sources) Phosphate Binder, Calcium take 1200 mg by mouth once daily calcium 1200 mg by mouth once a day active [facility] take 1200 mg by mouth once daily calcium 1200 mg by mouth once a day calcium Jessica Alvarado Cholecalciferol (3 sources) Vitamin D take 1 tablet by once daily Vitamin D3 125 mcg (5,000 unit) tablet 1 tablet by mouth once a day active Jessica [facility]. take 1 tablet by mouth once surendra y D-5000 125 MCG (5000 UT) TABS 1 tablet by mouth once a day cholecalciferol (vitamin d3) [id number] Jessica Cruzers [place] (Nk) (2 sources) Start: 05-04-2021 [place] (Nk) A May 04, 2021 12:00am Start: 05-04-2021 [place] (Nk) A May 03, 2021 11:00pm omega-3 fatty acids capsule (3 sources) take 2 capsules by m outh once daily omega-3 fatty acids capsule 2 capsule by mouth once a day active Jessica Embarr Downs. take 2 capsules by mouth once da misha omega-3 fatty acids capsule 2 capsule by mouth once a day omega-3 fatty acids capsule Jessica Cruzers POTASSIUM & MAGNESIUM ASPARTAT 250-250 MG CAPS (2 sources) Start: 08-03-2018 take 1 capsule by mouth once daily POTASSIUM & MAGNESIUM ASPARTAT 250-250 MG CAPS 1 capsule by mouth once a day active Jessica [facility]arr [employer] ubidecarenone 100 mg oral capsule (3 sources) take 2 capsules by mouth once daily Co Q-10 100 mg capsule 2 capsule by mouth once a day active Jessica Embarr [employer] VITAMIN B12 500 MCG ORAL TABLET (3 sources) Start: 12-01-2019 take 1 tablet by mouth once daily VITAMIN B12 500 MCG ORAL TABLET 1 tablet by mouth once a day active Erna Ceballos [facility] Start: 12-01-2019 take 1 tablet by марина th once daily VITAMIN B12 500 MCG ORAL TABLET 1 tablet by mouth once a day VITAMIN B12 500 MCG ORAL TABLET Jessica Alvarado Vitamin C 500 mg tablet (2 sources) take 1 tablet by марина th once daily Vitamin C 500 mg tablet 1 tablet by mouth once a day active Jessica [facility]arr [employer] zinc gluconate 50 mg oral tablet (3 sources) take 1 tablet by марина th once daily zinc 50 mg tablet 1 tablet by mouth once a day active [facility] Completed/Discontinued Medications Medication Drug Class(es) Dates Sig [...] mouth once a day alpha lipoic acid [id number] Jessica Tracy ascorbic acid 500 mg oral tablet (1 source) Vitamin C take 1 tablet by mouth once daily C 500 500 MG TABS 1 tablet by mouth once a day ascorbic acid (vitamin c) [id number] Jessica Tracy aspirin 81 mg chewable tablet [...] 81 MG ORAL TABLET DELAYED RELEASE Jessica Demarcus Baicalin-Catechin (2 sources) Start: 02-01-2016 End: 07-04-2017 [...] by mouth as directed as needed ibuprofen [id number] Jessica Tracy MAG ASPART-POTASSIUM ASPART (1 source) Start: 08-03-2018 take 1 capsule by mouth once daily POTASSIUM & MAGNESIUM ASPARTAT 250-250 MG CAPS 1 capsule by mouth once a day MAG ASPART-POTASSIUM ASPART Jessica Tracy Problems Active Problems Problem Classification Problem Date Documented Date Episodic/Chronic Complication of device; implant or graft (3 sources) Disorder of prosthetic joint; Translations: [Other mechanical complication of internal left hip prosthesis, initial encounter] Onset: 03-15-2025 03-15-2025 Episodic Other connective tissue disease (3 sources) Presence of left artificial hip joint; Translations: [Status post hip replacement, left] Onset: 10-18-2018 Chronic Other connective tissue disease (2 sources) History of left hip replacement; Translations: [Presence [...] Da te Episodic/Chronic Other connective tissue disease (4 sources) Trochanteric bursitis, left hip; Translations: [Enthesopathy of hip region] Onset: 10-28-2017 07-04-2019 Episodic Other connective tissue disease (3 sources) Complete rotator cuff tear or rupture of left shoulder, not specified as traumatic; Translations: [Complete rupture of rotator cuff] Onset: 05-26-2019 05-26-2019 Episodic Other connective tissue disease (3 sources) Impingement syndrome of shoulder region; Translations: [Impingement syndrome of left shoulder] Onset: 09-06-2018 09-06-2018 Episodic Other connective tissue disease (3 sources) Bicipital tendinitis, right shoulder; Translations: [Bicipital tenosynovitis] Onset: 03-23-2018 03-23-2018 Episodic Other connective tissue disease (3 sources) Complete rotator cuff tear or rupture of right shoulder, not specified as traumatic; Translations: [Complete rupture of rotator cuff] Onset: 03-23-2018 03-23-2018 Episodic Sprains and strains (3 sources) Strain of muscle, fascia and tendon of left hip, subsequent encounter; Translations: [Other specified aftercare] Onset: 07-04-2019 07-04-2019 Episodic Unclassified (1 source) Problem Results Test Name Value Interpretation Reference Range Facility L3410.9992on 03-27-2025 [facility]. COMMENT Normal . [facility] Comment on above: Order Comment: [id number] 0CHROMIUM/COBALT ROYAL WB RT Result Comment: Test Ordered: [id number] Chromium and [place], WB (MoM) Chromium 1.4 ng/mL MX Reference Range: <3.0 [place] 2.2 ng/mL MX Reference Range: <3.0 Performed at: [facility] [address] [place] [id number] Conformal Pad Former: Flora Crane [facility], Phone: [phone] Performed at: - [facility] [address] [id number] Conformal Pad Former: Carlos Samuel PhD, Phone: [phone] Performed By: #### L 500.0814, L100.0100, L501.9910, L101.9900, L3100.5941, L3410.9992 #### [facility] [place], [place], [address] L3410.9994on [facility] COMMENT Normal . [facility] Comment on above: Order Comment: [id number] 0TITANIUM ROYAL WB RMT Result Comment: Test Ordered: [id number] Titanium, WB Titanium, WB <10.0 ng/mL MX Reference Range: <10.0 Analysis performed by Inductively-Coupled Plasma/Mass Spectrometry (ICP/MS). This test was developed and its performance characteristics determined by [facility]. It has not been cleared or approved by the Food and Drug Administration. Performed at: [facility] [address] [place] [id number] Conformal Pad Former: Flora Crane [facility], Phone: [phone] Performed at: [facility] [id number] Conformal Pad Former: Carlos Samuel PhD, Phone: [phone] Performed By: #### L 500.4050, L100.0100, L501.6710, L101.9900, L3100.6425, L3410.9992 #### [facility] [address] [place], [place], [id number] Relevant diagnostic tests/la boratory data Narrativeon 03-15-2025 Fall risk assessment no MARTY [employer]EX Work Phone: MEDS REVIEW Done [employer] Work Phone: MEDS REVIEWD Medications reviewed without changes [employer] Work Phone: MRI HX of the left hip on 03/07/2025 at [facility]. Work Phone: XRAY HX of the left hip on 02/27/2025 at [facility]. Work Phone: Lower Ext Joint Only (Routin e)on 03-07-2025 Lower Ext Joint Only (Routine) [facility] [address] [place], [place] [id number] Lower Ext Joint Only (Routine) MR#: [id number] Acct: [id number] Name: CAMILA BEAN Rep #: [id number] : 1955 M 69 From: Oziel Villavicencio MD PCP: Dr. Magno Renner MD Status: REG CLI Study: Lower Ext Joint Only (Routine) Date of Exam: 0 03/07/25 Exam# [id number] Ordering Dr: ESME MARTINEZ PROCEDURE: LOWER EXT [...] is a large joint effusion. Reading [facility] CC: ESME MARTINEZ; Dr. Magno Renner MD Bag Mender: Signed Normal [facility] Relevant diagnostic tests/la boratory data Narrativeon 02-27-2025 Fall risk assessment no MARTY [facility]. Work Phone: MEDS REVIEW Done [employer] Work Phone: MEDS REVIEWD Medications reviewed without changes [employer] Work Phone: Relevant diagnostic tests/la boratory data Narrativeon 02-20-2025 Fall risk assessment no MARTY [facility] [facility] [employer]. Work Phone: MEDS REVIEW Done [employer] Work Phone: MEDS REVIEWD Medications reviewed with changes [employer] Work Phone: Heavy Metals, Bloodon 2024 ARSENIC,BLOOD 3 ug/L Normal 0-9 [facility] Comment on above: Order Comment: Test( s) 713853-Ngul, Blood; 353228-Dygoxxg, Blood; 865147- Mercury, Blood was developed and its performance characteristics determined by [facility]. It has not been cleared or approved by the Food and Drug Administration. Result Comment: Dete ction Limit = 1 Performed By: #### L 500.4050, L100.0100, L501.6710, L101.9900, L3100.6425, L3410.9992 #### [facility] [address] [place], [place], [id number] LEAD, BLOOD 4.2 ug/dL High 0.0-3.4 [facility] Comment on above: Order Comment: Test( s) 468493-Hbfn, Blood; 896185-Gqyevsl, Blood; 603807- Mercury, Blood was developed and its performance characteristics determined by [facility]. It has not been cleared or approved by the Food and Drug Administration. Result Comment: Test ing performed by Inductively coupled plasma/Mass Spectrometry. Client Requested Flag Verified by repeat analysis Environmental Exposure: WHO Recommendation <5.0 Occupational Exposure: OSHA Lead Std 40.0 ALMAS 30.0 Detection Limit = 1.0 Performed By: #### L 500.4050, L100.0100, L501.6710, L101.9900, L3100.6425, L3410.9992 #### [facility] [address] [place], [place], [id number] MERCURY,BLOOD 3.5 ug/L Normal 0.0-14.9 [facility] Comment on above: Order Comment: Test( s) 646279-Fjzo, Blood; 980510-Kxsgqaa, Blood; 885123- Mercury, Blood was developed and its performance characteristics determined by [facility]. It has not been cleared or approved by the Food and Drug Administration. Result Comment: Dete ction Limit = 1.0 Performed at: [address] [id number] Conformal Pad Former: Ledy Edwards MD, Phone: [phone] Performed By: #### L 500.4050, L100.0100, L501.6710, L101.9900, L3100.6425, L3410.9992 #### [facility] [address] [place], [place], [address] L3410.9992on 02-09-2025 [facility]. COMMENT Normal . [facility] Comment on above: Order Comment: [id number] 6 COBALT PLASMA ROYAL BLUE RMT Result Comment: Test Ordered: [id number] [place], Plasma Test(s) 049646-Auasqi, Plasma was developed and its performance characteristics determined by [facility]. It has not been cleared or approved by the Food and Drug Administration. [place], Plasma 1.8 [H ] ug/L [facility] Reference Range: 0.0-0.9 Occupational Exposure: ALMAS 1.0 Detection Limit = 1.0 Performed at: [facility] [address], [place], [place] [id number] Conformal Pad Former: Nunu Cullen MD, Phone: [phone] Performed at: [address] [id number] Conformal Pad Former: Carlos Samuel PhD, Phone: [phone] Performed By: #### L 500.4050, L100.0100, L501.6710, L101.9900, L3100.6425, L3410.9992 #### [facility] [address] [place], [address] CBC W/Diff, Automatedon 07-2 -2024 Absolute Lymph 2.63 X10 3/uL Normal 0.83-4.51 [facility] Comment on above: Performed By: #### L 500.4050, L100.0100, L501.6710, L101.9900, L3100.6425, L3410.9992 #### [facility] [address] [place], [address] Absolute Neut 3.5 X10 3/uL Normal 2.0-7.7 [facility] Comment on above: Performed By: #### L 500.4050, L100.0100, L501.6710, L101.9900, L3100.6425, L3410.9992 #### [facility] [address] [place], [address] Basophils/100 WBC (Bld) 0.6 % Normal 0-1 [facility] Comment on above: Performed By: #### L 500.4050, L100.0100, L501.6710, L101.9900, L3100.6425, L3410.9992 #### [facility] [address] [place], [address] Eosinophils/100 WBC (Bld) 3.2 % Normal 0-5 [facility] Comment on above: Performed By: #### L 500.4050, L100.0100, L501.6710, L101.9900, L3100.6425, L3410.9992 #### [facility] [address] [place], [address] Erythrocyte distribution width (RBC) [Ratio] 12.8 % Normal 11.6-14.6 [facility] Comment on above: Performed By: #### L 500.4050, L100.0100, L501.6710, L101.9900, L3100.6425, L3410.9992 #### [facility] [address] [place], [address] Hematocrit (Bld) [Volume fraction] 45.4 % Normal 40-54 [facility] Comment on above: Performed By: #### L 500.4050, L100.0100, L501.6710, L101.9900, L3100.6425, L3410.9992 #### [facility] [address] [place], [address] Hemoglobin (Bld) [Mass/Vol] 16.3 g/dL Normal 13.0-16.5 [facility] Comment on above: Performed By: #### L 500.4050, L100.0100, L501.6710, L101.9900, L3100.6425, L3410.9992 #### [facility] [address] [place], [address] IG% 0.300 Normal 0.0-0.9 [facility] Comment on above: Result Comment: IG% - Immature Granulocytes (promyelocytes, myelocytes and metamyelocytes) > 1% indicates that a LEFT SHIFT is Present. Performed By: #### L 500.4050, L100.0100, L501.6710, L101.9900, L3100.6425, L3410.9992 #### [facility] [address] [place], [address] Lymphocytes/100 WBC (Bld) 38.0 % Normal 19-41 [facility] Comment on above: Performed By: #### L 500.4050, L100.0100, L501.6710, L101.9900, L3100.6425, L3410.9992 #### [facility] [address] [place], [address] MCH (RBC) [Entitic mass] 33.7 pg High 27.0-32.0 [facility] Comment on above: Performed By: #### L 500.4050, L100.0100, L501.6710, L101.9900, L3100.6425, L3410.9992 #### [facility] [address] [place], [address] MCHC (RBC) [Mass/Vol] 35.9 g/dL Normal 32-36 [facility] Comment on above: Performed By: #### L 500.4050, L100.0100, L501.6710, L101.9900, L3100.6425, L3410.9992 #### [facility] [address] [place], [address] MCV (RBC) [Entitic vol] 94.0 fL Normal 80-94 [facility] Comment on above: Performed By: #### L 500.4050, L100.0100, L501.6710, L101.9900, L3100.6425, L3410.9992 #### [facility] [address] [place], [address] Monocytes/100 WBC (Bld) 8.2 % Normal 0-10 [facility] Comment on above: Performed By: #### L 500.4050, L100.0100, L501.6710, L101.9900, L3100.6425, L3410.9992 #### [facility] [address] [place], [address] Neutrophils/100 WBC (Bld) 49.7 % Normal 47-70 [facility] Comment on above: Performed By: #### L 500.4050, L100.0100, L501.6710, L101.9900, L3100.6425, L3410.9992 #### [facility] [address] [place], [address] Nucleated RBC (Bld) [#/Vol] 0 10*3/uL Normal 0-5 [facility] Comment on above: Performed By: #### L 500.4050, L100.0100, L501.6710, L101.9900, L3100.6425, L3410.9992 #### [facility] [address] [place], [address] Platelet mean volume (Bld) [Entitic vol] 9.9 fL Normal 6.2-12.0 [facility] Comment on above: Performed By: #### L 500.4050, L100.0100, L501.6710, L101.9900, L3100.6425, L3410.9992 #### [facility] [address] [place], [address] Platelets (Bld) [#/Vol] 205 10*3/uL Normal 150-450 [facility] Comment on above: Performed By: #### L 500.4050, L100.0100, L501.6710, L101.9900, L3100.6425, L3410.9992 #### [facility] [address] [place], [address] RBC (Bld) [#/Vol] 4.83 10*6/uL Normal 4.6-6.2 [facility] Comment on above: Performed By: #### L 500.4050, L100.0100, L501.6710, L101.9900, L3100.6425, L3410.9992 #### [facility] [address] [place], [address] RDW SD 44.1 fl High 35.1-43.9 [facility] Comment on above: Performed By: #### L 500.4050, L100.0100, L501.6710, L101.9900, L3100.6425, L3410.9992 #### [facility] [address] [place], [address] WBC (Bld) [#/Vol] 6.9 10*3/uL Normal 4.4-11.0 [facility] Comment on above: Performed By: #### L 500.4050, L100.0100, L501.6710, L101.9900, L3100.6425, L3410.9992 #### [facility] [address] [place], [address] CRPon 02-07-2025 C-REACTIVE PROT < 3.00 Normal 0.0-3.0 [facility] Comment on above: Performed By: #### L 500.4050, L100.0100, L501.6710, L101.9900, L3100.6425, L3410.9992 #### [facility] [address] [place], [address] Comprehensive Metabolic Prof ilon 02-07-2025 Albumin [Mass/Vol] 4.1 g/dL Normal 3.4-4.8 [facility] Comment on above: Performed By: #### L 500.4050, L100.0100, L501.6710, L101.9900, L3100.6425, L3410.9992 #### [facility] [address] [place], [address] Albumin/Globulin [Mass ratio] 1.8 {ratio} Normal 0.9-2.4 [facility] Comment on above: Performed By: #### L 500.4050, L100.0100, L501.6710, L101.9900, L3100.6425, L3410.9992 #### [facility] [address] [place], [address] ALK PHOS 55 U/L Normal 40-129 [facility] Comment on above: Performed By: #### L 500.4050, L100.0100, L501.6710, L101.9900, L3100.6425, L3410.9992 #### [facility] [address] [place], [address] ALT [Catalytic activity/Vol] 25 U/L Normal <=46 [facility] Comment on above: Performed By: #### L 500.4050, L100.0100, L501.6710, L101.9900, L3100.6425, L3410.9992 #### [facility] [address] [place], [address] AST [Catalytic activity/Vol] 24 U/L Normal <=37 [facility] Comment on above: Result Comment: Hemo lysis present, Results??could be affected. ?? Performed By: #### L 500.4050, L100.0100, L501.6710, L101.9900, L3100.6425, L3410.9992 #### [facility] [address] [place], [address] Bilirubin [Mass/Vol] 0.63 mg/dL Normal 0.00-1.30 [facility] Comment on above: Performed By: #### L 500.4050, L100.0100, L501.6710, L101.9900, L3100.6425, L3410.9992 #### [facility] [address] [place], [address] BUN/CRE 19.6 RATIO Normal 10-20 [facility] Comment on above: Performed By: #### L 500.4050, L100.0100, L501.6710, L101.9900, L3100.6425, L3410.9992 #### [facility] [address] [place], [address] Calcium [Mass/Vol] 9.3 mg/dL Normal 7.6-11.0 [facility] Comment on above: Performed By: #### L 500.4050, L100.0100, L501.6710, L101.9900, L3100.6425, L3410.9992 #### [facility] [address] [place], [address] Chloride [Moles/Vol] 105 mmol/L Normal 98-108 [facility] Comment on above: Performed By: #### L 500.4050, L100.0100, L501.6710, L101.9900, L3100.6425, L3410.9992 #### [facility] [address] [place], [address] CO2 [Moles/Vol] 23.3 mmol/L Normal 21.0-32.0 [facility] Comment on above: Performed By: #### L 500.4050, L100.0100, L501.6710, L101.9900, L3100.6425, L3410.9992 #### [facility] [address] [place], [address] Creatinine [Mass/Vol] 0.94 mg/dL Normal 0.70-1.20 [facility] Comment on above: Performed By: #### L 500.4050, L100.0100, L501.6710, L101.9900, L3100.6425, L3410.9992 #### [facility] [address] [place], [address] GAP 12 Normal 5-15 [facility] Comment on above: Performed By: #### L 500.4050, L100.0100, L501.6710, L101.9900, L3100.6425, L3410.9992 #### [facility] [address] [place], [address] GFR/1.73 sq M.predicted among non-blacks MDRD (S/P/Bld) [Vol rate/Area] 87 mL/min/{1.73_m2} Normal >60 [facility] Comment on above: Result Comment: mL/m in/1.73m2 CKD-EPI Creatinine Equation (2020) Performed By: #### L 500.4050, L100.0100, L501.6710, L101.9900, L3100.6425, L3410.9992 #### [facility] [address] [place], [address] Globulin (S) [Mass/Vol] 2.3 g/dL Normal 2.2-4.2 [facility] Comment on above: Performed By: #### L 500.4050, L100.0100, L501.6710, L101.9900, L3100.6425, L3410.9992 #### [facility] [address] [place], [address] Glucose [Mass/Vol] 104 mg/dL High 70-99 [facility] Comment on above: Performed By: #### L 500.4050, L100.0100, L501.6710, L101.9900, L3100.6425, L3410.9992 #### [facility] [address] [place], [address] Potassium [Moles/Vol] 3.9 mmol/L Normal 3.3-5.1 [facility] Comment on above: Result Comment: Hemo lysis present, Results??could be affected. ?? Performed By: #### L 500.4050, L100.0100, L501.6710, L101.9900, L3100.6425, L3410.9992 #### [facility] [address] [place], [address] Sodium [Moles/Vol] 140 mmol/L Normal 133-145 [facility] Comment on above: Performed By: #### L 500.4050, L100.0100, L501.6710, L101.9900, L3100.6425, L3410.9992 #### [facility] [address] [place], [address] T PROT 6.5 g/dL Normal 5.9-8.4 [facility] Comment on above: Performed By: #### L 500.4050, L100.0100, L501.6710, L101.9900, L3100.6425, L3410.9992 #### [facility] [address] [place], [address] Urea nitrogen [Mass/Vol] 18 mg/dL Normal 4-19 [facility] Comment on above: Performed By: #### L 500.4050, L100.0100, L501.6710, L101.9900, L3100.6425, L3410.9992 #### [facility] [address] [place], [address] Erythrocyte Sed Rateon 02-07 SED RATE < 1 Normal 0-20 [facility] Comment on above: Performed By: #### L 500.4050, L100.0100, L501.6710, L101.9900, L3100.6425, L3410.9992 #### [facility] [address] [place], [address] PSA,Total- Diagnosticon 11-16 PSA, DIAGNOSTIC 8.57 ng/mL High 0.00-4.00 [facility] Comment on above: Result Comment: This test [...] values. Performed By: #### L 501.9940 #### [facility] [address] [place], [address] PSA Total+%Freeon 05-20-2024 PSA, FREE 1.52 ng/mL Normal N/A [facility] Comment on above: Order Comment: Order Date: 05/19/24Order Info: [id number] - PSAT%F Result Comment: Princess PAREKH methodology. Performed By: #### L 500.4050, L100.0100, L501.6710, L101.9900, L3100.6425, L3410.9992 #### [facility] [address] [place], [place], [address] PSA, FREE % 16.4 Normal . [facility] Comment on above: Order Comment: Order [...] any other population of men. Performed at: - [address] [id number] [employer] Former: Carlos Samuel PhD, Phone: [phone] Performed By: #### L 500.4050, L100.0100, L501.6710, L101.9900, L3100.6425, L3410.9992 #### [facility] [address] [place], [address] PSA, TOTAL ULTR 9.280 ng/mL Abnormal 0.000-4.000 [facility] Comment on above: Order Comment: Order Date: 05/19/24Order Info: [id number] - PSAT%F Result Comment: Princess PAREKH methodology. According to the [employer], Serum PSA should decrease and [...] 500.4050, L100.0100, L501.6710, L101.9900, L3100.6425, L3410.9992 #### [facility] [address] [place], [address] CBC W/Diff, Automatedon 11-0 -2023 Absolute Lymph 1.71 X10 3/uL Normal 0.83-4.51 [facility] Comment on above: Order Comment: Order Date: 05/19/24 Order Info: 0184-1 - CBCD Performed By: #### L 3110.0500, L100.0100, L500.4050, L500.4100 #### [facility] [address] [place], [address] Absolute Neut 3.1 X10 3/uL Normal 2.0-7.7 [facility] Comment on above: Order Comment: Order Date: 05/19/24 Order Info: [id number]- - CBCD Performed By: #### L 3110.0500, L100.0100, L500.4050, L500.4100 #### [facility] [address] [place], [address] Basophils/100 WBC (Bld) 0.7 % Normal 0-1 [facility] Comment on above: Order Comment: Order Date: 05/19/24 Order Info: 0184-1 - CBCD Performed By: #### L 3110.0500, L100.0100, L500.4050, L500.4100 #### [facility] [address] [place], [address] Eosinophils/100 WBC (Bld) 2.1 % Normal 0-5 [facility] Comment on above: Order Comment: Order Date: 05/19/24 Order Info: 0184-1 - CBCD Performed By: #### L 3110.0500, L100.0100, L500.4050, L500.4100 #### [facility] [address] [place], [address] Erythrocyte distribution width (RBC) [Ratio] 12.2 % Normal 11.6-14.6 [facility] Comment on above: Order Comment: Order Date: 05/19/24 Order Info: 0184-1 - CBCD Performed By: #### L 3110.0500, L100.0100, L500.4050, L500.4100 #### [facility] [address] [place], [address] Hematocrit (Bld) [Volume fraction] 45.8 % Normal 40-54 [facility] Comment on above: Order Comment: Order Date: 05/19/24 Order Info: 0184- - CBCD Performed By: #### L 3110.0500, L100.0100, L500.4050, L500.4100 #### [facility] [address] [place], [address] Hemoglobin (Bld) [Mass/Vol] 16.2 g/dL Normal 13.0-16.5 [facility] Comment on above: Order Comment: Order Date: 05/19/24 Order Info: 0184-1 - CBCD Performed By: #### L 3110.0500, L100.0100, L500.4050, L500.4100 #### [facility] [address] [place], [address] IG% 0.200 Normal 0.0-0.9 [facility] Comment on above: Order Comment: Order Date: 05/19/24 Order Info: 0184-1 - CBCD Result Comment: IG% - Immature Granulocytes (promyelocytes, myelocytes and metamyelocytes) > 1% indicates that a LEFT SHIFT is Present. Performed By: #### L 3110.0500, L100.0100, L500.4050, L500.4100 #### [facility] [address] [place], [address] Lymphocytes/100 WBC (Bld) 30.5 % Normal 19-41 [facility] Comment on above: Order Comment: Order Date: 05/19/24 Order Info: 0184-1 - CBCD Performed By: #### L 3110.0500, L100.0100, L500.4050, L500.4100 #### [facility] [address] [place], [address] MCH (RBC) [Entitic mass] 33.3 pg High 27.0-32.0 [facility] Comment on above: Order Comment: Order Date: 05/19/24 Order Info: [id number]- - CBCD Performed By: #### L 3110.0500, L100.0100, L500.4050, L500.4100 #### [facility] [address] [place], [address] MCHC (RBC) [Mass/Vol] 35.4 g/dL Normal 32-36 [facility] Comment on above: Order Comment: Order Date: 05/19/24 Order Info: [id number]- - CBCD Performed By: #### L 3110.0500, L100.0100, L500.4050, L500.4100 #### [facility] [address] [place], [address] MCV (RBC) [Entitic vol] 94.0 fL Normal 80-94 [facility] Comment on above: Order Comment: Order Date: 05/19/24 Order Info: 0184-1 - CBCD Performed By: #### L 3110.0500, L100.0100, L500.4050, L500.4100 #### [facility] [address] [place], [address] Monocytes/100 WBC (Bld) 11.2 % High 0-10 [facility] Comment on above: Order Comment: Order Date: 05/19/24 Order Info: 0184-1 - CBCD Performed By: #### L 3110.0500, L100.0100, L500.4050, L500.4100 #### [facility] [address] [place], [address] Neutrophils/100 WBC (Bld) 55.3 % Normal 47-70 [facility] Comment on above: Order Comment: Order Date: 05/19/24 Order Info: 0184-1 - CBCD Performed By: #### L 3110.0500, L100.0100, L500.4050, L500.4100 #### [facility] [address] [place], [address] Nucleated RBC (Bld) [#/Vol] 0 10*3/uL Normal 0-5 [facility] Comment on above: Order Comment: Order Date: 05/19/24 Order Info: 0184-1 - CBCD Performed By: #### L 3110.0500, L100.0100, L500.4050, L500.4100 #### [facility] [address] [place], [address] Platelet mean volume (Bld) [Entitic vol] 10.1 fL Normal 6.2-12.0 [facility] Comment on above: Order Comment: Order Date: 05/19/24 Order Info: 0184-1 - CBCD Performed By: #### L 3110.0500, L100.0100, L500.4050, L500.4100 #### [facility] [address] [place], [address] Platelets (Bld) [#/Vol] 230 10*3/uL Normal 150-450 [facility] Comment on above: Order Comment: Order Date: 05/19/24 Order Info: 0184-1 - CBCD Performed By: #### L 3110.0500, L100.0100, L500.4050, L500.4100 #### [facility] [address] [place], [address] RBC (Bld) [#/Vol] 4.87 10*6/uL Normal 4.6-6.2 [facility] Comment on above: Order Comment: Order Date: 05/19/24 Order Info: 0184-1 - CBCD Performed By: #### L 3110.0500, L100.0100, L500.4050, L500.4100 #### [facility] [address] [place], [address] RDW SD 42.5 fl Normal 35.1-43.9 [facility] Comment on above: Order Comment: Order Date: 05/19/24 Order Info: 0184-1 - CBCD Performed By: #### L 3110.0500, L100.0100, L500.4050, L500.4100 #### [facility] [address] [place], [address] WBC (Bld) [#/Vol] 5.6 10*3/uL Normal 4.4-11.0 [facility] Comment on above: Order Comment: Order Date: 05/19/24 Order Info: 0184-1 - CBCD Performed By: #### L 3110.0500, L100.0100, L500.4050, L500.4100 #### [facility] [address] [place], [address] Comprehensive Metabolic Prof ilon 05-19-2024 Albumin [Mass/Vol] 4.0 g/dL Normal 3.2-5.0 [facility] Comment on above: Order Comment: Order Date: 05/19/24 Order Info: 0786-1 - CMP Order Info: [id number] - LIPID pre-op, monitoring elevated psa Performed By: #### L 3110.0500, L100.0100, L500.4050, L500.4100 #### [facility] [address] [place], [address] Albumin/Globulin [Mass ratio] 1.4 {ratio} Normal 0.9-2.4 [facility] Comment on above: Order Comment: Order Date: 05/19/24 Order Info: 0786-1 - CMP Order Info: [id number] - LIPID pre-op, monitoring elevated psa Performed By: #### L 3110.0500, L100.0100, L500.4050, L500.4100 #### [facility] [address] [place], [address] ALK P 62 U/L Normal 45-117 [facility] Comment on above: Order Comment: Order Date: 05/19/24 Order Info: 0786-1 - CMP Order Info: [id number] - LIPID pre-op, monitoring elevated psa Performed By: #### L 3110.0500, L100.0100, L500.4050, L500.4100 #### [facility] [address] [place], [address] ALT [Catalytic activity/Vol] 36 U/L Normal 16-61 [facility] Comment on above: Order Comment: Order Date: 05/19/24 Order Info: 0786-1 - CMP Order Info: [id number] - LIPID pre-op, monitoring elevated psa Performed By: #### L 3110.0500, L100.0100, L500.4050, L500.4100 #### [facility] [address] [place], [address] AST [Catalytic activity/Vol] 23 U/L Normal 15-37 [facility] Comment on above: Order Comment: Order Date: 05/19/24 Order Info: [id number] - CMP Order Info: [id number] - LIPID pre-op, monitoring elevated psa Performed By: #### L 3110.0500, L100.0100, L500.4050, L500.4100 #### [facility] [address] [place], [address] Bilirubin [Mass/Vol] 1.00 mg/dL Normal 0.20-1.00 [facility] Comment on above: Order Comment: Order Date: 05/19/24 Order Info: 0786-1 - CMP Order Info: [id number] - LIPID pre-op, monitoring elevated psa Result Comment: For patients on eltrombopag therapy, use of Dimension [place] TBIL is not recommended. Performed By: #### L 3110.0500, L100.0100, L500.4050, L500.4100 #### [facility] [address] [place], [address] BUN/CRE 22.9 RATIO High 10-20 [facility] Comment on above: Order Comment: Order Date: 05/19/24 Order Info: [id number] - CMP Order Info: [id number] - LIPID pre-op, monitoring elevated psa Performed By: #### L 3110.0500, L100.0100, L500.4050, L500.4100 #### [facility] [address] [place], [address] CA,Total 8.7 mg/dL Normal 8.5-10.1 [facility] Comment on above: Order Comment: Order Date: 05/19/24 Order Info: 0786-1 - CMP Order Info: [id number] - LIPID pre-op, monitoring elevated psa Performed By: #### L 3110.0500, L100.0100, L500.4050, L500.4100 #### [facility] [address] [place], [address] Chloride [Moles/Vol] 108 mmol/L High 98-107 [facility] Comment on above: Order Comment: Order Date: 05/19/24 Order Info: 0786-1 - CMP Order Info: [id number] - LIPID pre-op, monitoring elevated psa Performed By: #### L 3110.0500, L100.0100, L500.4050, L500.4100 #### [facility] [address] [place], [address] CO2 [Moles/Vol] 26.0 mmol/L Normal 21.0-32.0 [facility] Comment on above: Order Comment: Order Date: 05/19/24 Order Info: 0786-1 - CMP Order Info: [id number] - LIPID pre-op, monitoring elevated psa Performed By: #### L 3110.0500, L100.0100, L500.4050, L500.4100 #### [facility] [address] [place], [address] Creatinine [Mass/Vol] 0.83 mg/dL Normal 0.70-1.30 [facility] Comment on above: Order Comment: Order Date: 05/19/24 Order Info: 0786-1 - CMP Order Info: [id number] - LIPID pre-op, monitoring elevated psa Result Comment: The validity of the calculated GFR GFRAA in patients over 70 years has not been determined. Clinical correlation is essential. Performed By: #### L 3110.0500, L100.0100, L500.4050, L500.4100 #### [facility] [address] [place], [address] EST GFR - AA 118 mL/min Normal >60 [facility] Comment on above: Order Comment: Order Date: 05/19/24 Order Info: 0786-1 - CMP Order Info: [id number] - LIPID pre-op, monitoring elevated psa Result Comment: Afri can [place] GFR Calc Performed By: #### L 3110.0500, L100.0100, L500.4050, L500.4100 #### [facility] [address] [place], [address] GAP 5 Normal 5-15 [facility] Comment on above: Order Comment: Order Date: 05/19/24 Order Info: 0786-1 - CMP Order Info: [id number] - LIPID pre-op, monitoring elevated psa Performed By: #### L 3110.0500, L100.0100, L500.4050, L500.4100 #### [facility] [address] [place], [address] GFR/1.73 sq M.predicted among non-blacks MDRD (S/P/Bld) [Vol rate/Area] 97 mL/min/{1.73_m2} Normal >60 [facility] Comment on above: Order Comment: Order Date: 05/19/24 Order Info: 0786-1 - CMP Order Info: [id number] - LIPID pre-op, monitoring elevated psa Result Comment: Non- GFR Calc Performed By: #### L 3110.0500, L100.0100, L500.4050, L500.4100 #### [facility] [address] [place], [address] Globulin (S) [Mass/Vol] 2.9 g/dL Normal 2.2-4.2 [facility] Comment on above: Order Comment: Order Date: 05/19/24 Order Info: 0786-1 - CMP Order Info: [id number] - LIPID pre-op, monitoring elevated psa Performed By: #### L 3110.0500, L100.0100, L500.4050, L500.4100 #### [facility] [address] [place], [address] Glucose [Mass/Vol] 95 mg/dL Normal 74-106 [facility] Comment on above: Order Comment: Order Date: 05/19/24 Order Info: 0786-1 - CMP Order Info: [id number] - LIPID pre-op, monitoring elevated psa Performed By: #### L 3110.0500, L100.0100, L500.4050, L500.4100 #### [facility] [address] [place], [address] Potassium [Moles/Vol] 4.3 mmol/L Normal 3.5-5.1 [facility] Comment on above: Order Comment: Order Date: 05/19/24 Order Info: 0786-1 - CMP Order Info: [id number] - LIPID pre-op, monitoring elevated psa Performed By: #### L 3110.0500, L100.0100, L500.4050, L500.4100 #### [facility] [address] [place], [address] Sodium [Moles/Vol] 138 mmol/L Normal 136-145 [facility] Comment on above: Order Comment: Order Date: 05/19/24 Order Info: 0786-1 - CMP Order Info: [id number] - LIPID pre-op, monitoring elevated psa Performed By: #### L 3110.0500, L100.0100, L500.4050, L500.4100 #### [facility] [address] [place], [address] T PROT 6.9 g/dL Normal 6.4-8.2 [facility] Comment on above: Order Comment: Order Date: 05/19/24 Order Info: 0786-1 - CMP Order Info: [id number] - LIPID pre-op, monitoring elevated psa Performed By: #### L 3110.0500, L100.0100, L500.4050, L500.4100 #### [facility] [address] [place], [address] Urea nitrogen [Mass/Vol] 19 mg/dL High 7-18 [facility] Comment on above: Order Comment: Order Date: 05/19/24 Order Info: 0786-1 - CMP Order Info: [id number] - LIPID pre-op, monitoring elevated psa Performed By: #### L 3110.0500, L100.0100, L500.4050, L500.4100 #### [facility] [address] [place], [address] Lipid Profileon 05-19-2024 Cholesterol [Mass/Vol] 188 mg/dL Normal 200 [facility] Comment on above: Order Comment: Order Date: 05/19/24 Order Info: 0786-1 - CMP Order Info: [id number] - LIPID pre-op, monitoring elevated psa Result Comment: <200 mg/dL Desirable 200-240 mg/dL Borderline >240 mg/dL High Risk Performed By: #### L 3110.0500, L100.0100, L500.4050, L500.4100 #### [facility] [address] [place], [address] Cholesterol in HDL [Mass/Vol] 43 mg/dL Normal [facility] Comment on above: Order Comment: Order Date: 05/19/24 Order Info: 0786-1 - CMP Order Info: [id number] - LIPID pre-op, monitoring elevated psa Result Comment: The drugs N-Acetylcysteine and Metamizole may falsely depress this assay. Reference Range HDL <40 mg/dL Low HDL Cholesterol HDL >or= 60 mg/dL High HDL Cholesterol Performed By: #### L 3110.0500, L100.0100, L500.4050, L500.4100 #### [facility] [address] [place], [address] Cholesterol in LDL [Mass/Vol] 114 mg/dL Normal 0-130 [facility] Comment on above: Order Comment: Order Date: 05/19/24 Order Info: 0786-1 - CMP Order Info: [id number] - LIPID pre-op, monitoring elevated psa Performed By: #### L 3110.0500, L100.0100, L500.4050, L500.4100 #### [facility] [address] [place], [address] Cholesterol in VLDL [Mass/Vol] 31 mg/dL Normal 5-40 [facility] Comment on above: Order Comment: Order Date: 05/19/24 Order Info: 0786-1 - CMP Order Info: [id number] - LIPID pre-op, monitoring elevated psa Performed By: #### L 3110.0500, L100.0100, L500.4050, L500.4100 #### [facility] [address] [place], [address] Triglyceride [Mass/Vol] 155 mg/dL Normal [facility] Comment on above: Order Comment: Order Date: 05/19/24 Order Info: 0786-1 - CMP Order Info: [id number] - LIPID pre-op, monitoring elevated psa Result Comment: The drugs N-Acetylcysteine and Metamizole may falsely depress this assay. Serum Triglycerides Reference Interval Normal <150 mg/dL Borderline high 150 - 199 mg/dL High 200 - 499 mg/dL Very High > or = 500 mg/dL Performed By: #### L 3110.0500, L100.0100, L500.4050, L500.4100 #### [facility] [place], [address] No Panel InformationOrdered By: Dr. Moreno on 11-16-2022 Percent Free Prostate Specific Ag 0.80 ng/mL N/A [facility] Comment on above: Jay Jay ECLIA methodol ogy. Prostate Specific Ag, Ultra-Sensitv 6.020 ng/mL 0.000-4.000 [facility] Comment on above: Jay Jay ECLIA methodol ogy.According to the [employer], Serum PSAshould decrease and remain [...] PSA/Total PSA [Mass fraction] 13.3 % . [facility] Comment on above: The table below list [...] for any other population of men.Performed at: [facility], [place] [id number] Director: Carlos Samuel PhD, Phone: [phone] Basophil percentageOrdered B y: Dr. Moreno on 11-12-2022 Creatinine [Mass/Vol] 1.0 mg/dL 0.70-1.30 [facility] No Panel InformationOrdered By: Dr. Moreno on 11-12-2022 Bedside Estimated GFR (eGFR) > 60.0000 mL/min >60 [facility] Absolute lymphocyte countOrd ered By: Dr. Renner on 09-04-2022 Lymphocytes Auto (Unsp spec) [#/Vol] 2.04 10*3/uL 0.83-4.51 [facility] Basophil percentageOrdered B y: Dr. Renner on 09-04-2022 Basophils/100 WBC (Bld) 0.5 % 0-1 [facility] Bilirubin [Mass/Vol] 0.90 mg/dL 0.20-1.00 [facility] Comment on above: For patients on eltr ombopag therapy, use of Dimension [place] TBIL is not recommended. Chloride [Moles/Vol] 104 mmol/L 98-107 [facility] Cholesterol [Mass/Vol] 219 mg/dL <200 [facility] Comment on above: <200 mg/dL Desirable 200-240 mg/dL Borderline >240 mg/dL High Risk Eosinophils/100 WBC (Bld) 1.6 % 0-5 [facility] Glucose [Mass/Vol] 84 mg/dL 74-106 [facility] Neutrophils (Bld) [#/Vol] 3.7 10*3/uL 2.0-7.7 [facility] Neutrophils/100 WBC (Bld) 57.6 % 47-70 [facility] Potassium [Moles/Vol] 4.4 mmol/L 3.5-5.1 [facility] Protein [Mass/Vol] 7.2 g/dL 6.4-8.2 [facility] Sodium [Moles/Vol] 138 mmol/L 136-145 [facility] Triglyceride [Mass/Vol] 132 mg/dL <199 [facility] Comment on above: The drugs N-Acetylcy steine and Metamizole may falsely depress this assay.Serum Triglycerides Reference Interval Normal <150 mg/dL Borderline high 150 - 199 mg/dL High 200 - 499 mg/dL Very High > or = 500 mg/dL WBC (Bld) [#/Vol] 6.4 10*3/uL 4.4-11.0 [facility] Blood erythrocytes count (nu mber/volume)Ordered By: Dr. Renner on 09-04-2022 RBC (Bld) [#/Vol] 5.05 10*6/uL 4.6-6.2 [facility] Blood hemoglobin measurement (mass/volume)Ordered By: Dr. Renner on 09-04-2022 Hemoglobin (Bld) [Mass/Vol] 16.6 g/dL 13.0-16.5 [facility] Blood lymphocytes/100 leukoc ytesOrdered By: Dr. Renner on 09-04-2022 Lymphocytes/100 WBC (Bld) 31.8 % 19-41 [facility] Blood monocytes/100 leukocyt esOrdered By: Dr. Renner on 09-04-2022 Monocytes/100 WBC (Bld) 8.0 % 0-10 [facility] Blood platelet mean volumeOr dered By: Dr. Renner on 09-04-2022 Platelet mean volume (Bld) [Entitic vol] 10.7 fL 6.2-12.0 [facility] Determination of erythrocyte mean corpuscular volume (MCV)Ordered By: Dr. Renner on 09-04-2022 MCV (RBC) [Entitic vol] 95.8 fL 80-94 [facility] Hematocrit Auto (Bld) [Volum e fraction]Ordered By: Dr. Renner on 09-04-2022 Hematocrit (Bld) [Volume fraction] 48.4 % 40-54 [facility] - Chemistry and C hemistry - challengeOrdered By: Dr. Renner on 09-04-2022 ALP [Catalytic activity/Vol] 55 U/L 45-117 [facility] ALT [Catalytic activity/Vol] 41 U/L 16-61 [facility] CO2 [Moles/Vol] 26.0 mmol/L 21.0-32.0 [facility] Globulin (S) [Mass/Vol] 3.1 g/dL 2.2-4.2 [facility] Urea nitrogen/Creatinine [Mass ratio] 24.1 mg/mg 10-20 [facility] - Hematology and Cell countsOrdered By: Dr. Renner on 09-04-2022 Erythrocyte distribution width (RBC) [Entitic vol] 43.9 fL 35.1-43.9 [facility] Erythrocyte distribution width (RBC) [Ratio] 12.6 % 11.6-14.6 [facility] Immature granulocytes/100 WBC (Bld) 0.500 % 0.0-0.9 [facility] Comment on above: IG% - Immature Granu locytes (promyelocytes, myelocytes and metamyelocytes) > 1% indicates that a LEFT SHIFT is Present. MCH (RBC) [Entitic mass] 32.9 pg 27.0-32.0 [facility] Nucleated RBC/100 WBC (Bld) [Ratio] 0 % 0-5 [facility] MCHC Auto (RBC) [Mass/Vol]Or dered By: Dr. Renner on 09-04-2022 MCHC (RBC) [Mass/Vol] 34.3 g/dL 32-36 [facility] No Panel InformationOrdered By: Dr. Renner on 09-04-2022 Estimated GFR (MDRD) Amer 106 mL/min >60 [facility] Comment on above: GFR Calc Estimated GFR (MDRD) Non-Af Amer 87 mL/min >60 [facility] Comment on above: Non- GFR Calc Prostate Specific Antigen Screen 8.93 ng/mL 0.00-4.00 [facility] Comment on above: This test was perfor med using the TPSA assay method for the[facility] chemistry system. Values obtained with differentassay methods cannot be used interchangably.When changing PSA assays in the course of monitoring apatient, additional sequential testing should be carriedout to confirm baseline values. Vitamin D 25-Hydroxy 43.6 ng/mL [facility] Comment on above: Vitamin D 25(OH) Sta tus Range Deficiency <20 ng/mL (50nmol/L) Insufficiency 20 - 30 ng/mL (50 - 75 nmol/L) Sufficiency 30 - 100 ng/mL (75 - 250 nmol/L) Toxicity >100 ng/mL (>250 nmol/L) Platelets bldOrdered By: Dr. Renner on 09-04-2022 Platelets (Bld) [#/Vol] 239 10*3/uL 150-450 [facility] Serum or plasma albumin vin urement (mass/volume)Ordered By: Dr. Renner on 09-04-2022 Albumin [Mass/Vol] 4.1 g/dL 3.2-5.0 [facility] Serum or plasma albumin/glob ulin mass ratioOrdered By: Dr. Renner on 09-04-2022 Albumin/Globulin [Mass ratio] 1.3 {ratio} 0.9-2.4 [facility] Serum or plasma calcium vin urement (mass/volume)Ordered By: Dr. Renner on 09-04-2022 Calcium [Mass/Vol] 9.3 mg/dL 8.5-10.1 [facility] Serum or plasma cholesterol in HDL measurement (mass/volume)Ordered By: Dr. Renner on 09-04-2022 Cholesterol in HDL [Mass/Vol] 48 mg/dL >40 [facility] Comment on above: The drugs N-Acetylcy steine and Metamizole may falsely depress this assay. Reference Range HDL <40 mg/dL Low HDL Cholesterol HDL >or= 60 mg/dL High HDL Cholesterol Serum or plasma cholesterol in VLDL measurement (mass/volume)Ordered By: Dr. Renner on 09-04-2022 Cholesterol in VLDL [Mass/Vol] 26 mg/dL 5-40 [facility] Serum or plasma creatinine m easurement (mass/volume)Ordered By: Dr. Renner on 09-04-2022 Creatinine [Mass/Vol] 0.91 mg/dL 0.70-1.30 [facility] Comment on above: The validity of the calculated GFR & GFRAA in patients over 70 years has not been determined. Clinical correlation is essential. Serum or plasma low density lipoprotein (LDL) cholesterol measurement (mass/volume)Ordered By: Dr. Renner on 09-04-2022 Cholesterol in LDL [Mass/Vol] 145 mg/dL 0-130 [facility] Serum or plasma urea nitroge n measurement (mass/volume)Ordered By: Dr. Renner on 09-04-2022 Urea nitrogen [Mass/Vol] 22 mg/dL 7-18 [facility] Thin prep Papanicolaou smear with manual screeningOrdered By: Dr. Renner on 09-04-2022 Thin prep Papanicolaou smear with manual screening 30 U/L 15-37 [facility] Thin prep Papanicolaou smear with manual screening 8 5-15 [facility] Clinical Summary: Zuleika correa 09-26-2021 [facility] OP Visit Invalid Interpretation Code [facility] Work Phone: Office Visit: Follow-up by david castro, Rm:on 09-26-2021 NEGATED: Highlighted rowMRI (magnetic resonance imaging) history of the left hip on 09/26/2020 at [facility] Invalid Interpretation Code [facility] Work Phone: Clinical Summary: Scanned Hayes lilly Summaryon 09-25-2021 cause of , father Cancer Invalid Interpretation Code [facility] Work Phone: cause of , mother Cancer Invalid Interpretation Code [facility] Work Phone: Data entered by patient exercise frequency 6 days per week Invalid Interpretation Code [facility] Work Phone: Data entered by patient exercise type walking, strength training, other Invalid Interpretation Code [facility] Work Phone: data entered by patient, alcohol (ethanol or ETOH) use Yes Invalid Interpretation Code [facility] Work Phone: Data entered by patient, allergy list I don't have any Drug Allergies Invalid Interpretation Code [facility] Work Phone: data entered by patient, drug (of abuse) use No Invalid Interpretation Code [facility] Work Phone: data entered by patient, Employer Name employed Invalid Interpretation Code [facility] Work Phone: data entered by patient, exercise history Yes Invalid Interpretation Code [facility] Work Phone: data entered by patient, father's medical history Cancer High blood pressure Invalid Interpretation Code [facility] Work Phone: Data entered by patient, history of past surgeries Hip surgery other Shoulder surgery other Invalid Interpretation Code [facility] Work Phone: Data entered by patient, medication list Calcium-1200 mg-1-daily [id number]-daily [id number]-daily zinc-50 mg-1-daily Unknown Drug-Unknown Strength-Unknown Dosage-NEW Invalid Interpretation Code [facility] Work Phone: data entered by patient, mother's medical history Alcoholism Arthritis COPD Invalid Interpretation Code [facility] Work Phone: Data entered by patient, problem list I do not have any past medical illnesses or conditions Invalid Interpretation Code [facility] Work Phone: data entered by patient, social history, current smoker never smoker Invalid Interpretation Code [facility] Work Phone: data entered by patient, social history, marital status Invalid Interpretation Code [facility] Work Phone: father of patient is alive or Invalid Interpretation Code [facility] Work Phone: Housing Type: apartment, house, correction, trailer, none house Invalid Interpretation Code [facility] Work Phone: housing unit size (asthma environmental history, housing) (from single family to don't know) 1 floor Invalid Interpretation Code [facility] Work Phone: medication comments [place] 3 1200mg 2 royal ly Alpha Lipoic acid 200 mg daily Invalid Interpretation Code [facility] Work Phone: mother of patient is alive or Invalid Interpretation Code [facility] Work Phone: Number of dependent children No Invalid Interpretation Code [facility] Work Phone: Clinical Summary: [facility] pain intensity (Oswestry Pain Disability Index) 1 Invalid Interpretation Code [facility] Work Phone: Youth DLA20 [id number] 2 Invalid Interpretation Code [facility] Work Phone: Youth DLA20 [id number] 1 Invalid Interpretation Code [facility] Work Phone: Youth DLA20 [id number] 1 Invalid Interpretation Code [facility] Work Phone: Youth DLA20 [id number] 1 Invalid Interpretation Code [facility] Work Phone: Youth DLA20 [id number] 1 Invalid Interpretation Code [facility] Work Phone: Youth DLA20 [id number] 7 Invalid Interpretation Code [facility] Work Phone: Youth DLA20 [id number] [phone] Invalid Interpretation Code [facility] Work Phone: Youth DLA20 [id number] 1 Invalid Interpretation Code [facility] Work Phone: Youth DLA20 [id number] 2 Invalid Interpretation Code [facility] Work Phone: diagnostic criteria for SLE #1 4 Invalid Interpretation Code [facility] Work Phone: diagnostic criteria for SLE #10 3 Invalid Interpretation Code [facility] Work Phone: diagnostic criteria for SLE #11 14 Invalid Interpretation Code [facility] Work Phone: diagnostic criteria for SLE #12 19 Invalid Interpretation Code [facility] Work Phone: diagnostic criteria for SLE #13 44.9 Invalid Interpretation Code [facility] Work Phone: diagnostic criteria for SLE #14 62.5 Invalid Interpretation Code [facility] Work Phone: diagnostic criteria for SLE #15 [phone] Invalid Interpretation Code [facility] Work Phone: diagnostic criteria for SLE #2 5 Invalid Interpretation Code [facility] Work Phone: diagnostic criteria for SLE #3 4 Invalid Interpretation Code [facility] Work Phone: diagnostic criteria for SLE #4 5 Invalid Interpretation Code [facility] Work Phone: diagnostic criteria for SLE #5 5 Invalid Interpretation Code [facility] Work Phone: diagnostic criteria for SLE #6 5 Invalid Interpretation Code [facility] Work Phone: diagnostic criteria for SLE #7 5 Invalid Interpretation Code [facility] Work Phone: diagnostic criteria for SLE #8 4 Invalid Interpretation Code [facility] Work Phone: diagnostic criteria for SLE #9 5 Invalid Interpretation Code [facility] Work Phone: US Soft Tissue Lt Lower Extr emon 05-16-2019 US Soft Tissue Lt Lower Extrem Examination: Left lateral hip (Abductor) Ultrasound Indication: [id number]: Pain of left hip joint COMPARISON: Radiographs [...] by: KEDAR DANIELS MD Date: 05/16/2019 11:18 [facility] ALLIED HEALTHon 11-12-2018 ALLIED HEALTH HNO ID: [id number] Author: Paddy (Fast Food Attendant) Carolyn Galaviz Service: ? Author Type: Certified Rehabilitation Counselor Type: Allied Health Filed: 11/12/2018 8:12 AM [...] Carolyn Alvarado November 12, 2018 8:12 AM [facility] MRI HIP WO IVCON LTon 2018 MRI HIP WO IVCON LT * * *Final Report* * * DATE OF EXAM: Nov 12 2018 8:37AM [facility] 0206 - MRI HIP WO IVCON LT [...] on Nov 12 2018 8:56AM EST [id number] Normal [facility] Vital Signs Date Time Vital Sign Value Performing Clinician Facility 03-15-2025 08:03-0400 Body height 178 cm Esme Martinez MD Work Phone: [facility] 03-15-2025 08:03-0400 Body height 177.8 cm Esme Martinez MD Work Phone: [facility] 03-15-2025 08:03-0400 Body mass index (BMI) [Ratio] 25.63 kg/m2 Esme Martinez MD Work Phone: [facility] 03-15-2025 08:03-0400 Body weight 81 kg Esme Martinez MD Work Phone: [facility] 03-15-2025 08:03-0400 Body weight 80.74 kg Esme Martinez MD Work Phone: [facility] 03-15-2025 08:03-0400 BP SITE #1 Esme Martinez MD Work Phone: [facility] 03-15-2025 08:03-0400 BP SITE #2 Esme Martinez MD Work Phone: [facility] 03-15-2025 08:03-0400 Diastolic blood pressure 90 mm[Hg] Esme Martinez MD Work Phone: [facility] 03-15-2025 08:03-0400 Diastolic blood pressure 92 mm[Hg] Esme Martinez MD Work Phone: [facility] 03-15-2025 08:03-0400 Heart rate 61 /min Esme Martinez MD Work Phone: [facility] 03-15-2025 08:03-0400 HGHTCHNVIS Esme Martinez MD Work Phone: [facility] 03-15-2025 08:03-0400 Systolic blood pressure 150 mm[Hg] Esme Martinez MD Work Phone: [facility] 03-15-2025 08:03-0400 Systolic blood pressure 145 mm[Hg] Esme Martinez MD Work Phone: [facility] 03-15-2025 08:03-0400 VITALSDONE Esme Martinez MD Work Phone: [facility] 02-27-2025 08:41-0400 Body height 178 cm Esme Martinez MD Work Phone: [facility] 02-27-2025 08:41-0400 Body height 177.8 cm Esme Martinez MD Work Phone: [facility] 02-27-2025 08:41-0400 Body mass index (BMI) [Ratio] 25.78 kg/m2 Esme Martinez MD Work Phone: [facility] 02-27-2025 08:41-0400 Body weight 81 kg Esme Martinez MD Work Phone: [facility] 02-27-2025 08:41-0400 Body weight 81.19 kg Esme Martinez MD Work Phone: [facility] 02-27-2025 08:41-0400 BP SITE #1 Esme Martinez MD Work Phone: [facility] 02-27-2025 08:41-0400 BP SITE #2 Esme Martinez MD Work Phone: [facility] 02-27-2025 08:41-0400 Diastolic blood pressure 89 mm[Hg] Esme Martinez MD Work Phone: [facility] 02-27-2025 08:41-0400 Diastolic blood pressure 92 mm[Hg] Esme Martinez MD Work Phone: [facility] 02-27-2025 08:41-0400 Heart rate 58 /min Esme Martinez MD Work Phone: [facility] 02-27-2025 08:41-0400 HGHTCHNVIS Esme Martinez MD Work Phone: [facility] 02-27-2025 08:41-0400 Systolic blood pressure 149 mm[Hg] Esme Martinez MD Work Phone: [facility] 02-27-2025 08:41-0400 Systolic blood pressure 150 mm[Hg] Esme Martinez MD Work Phone: [facility] 02-27-2025 08:41-0400 VITALSDONE Esme Martinez MD Work Phone: [facility] NEGATED: Highlighted [id number] 12:22-0500 Body height 175.26 cm Sebastian Friend AT [facility] Work Phone: NEGATED: Highlighted [id number] 12:22-050 Body height 175 cm Sebastian Phuc AT [facility] Work Phone: NEGATED: Highlighted [id number] 12:22-0500 Body mass index (BMI) [Ratio] 25.2 kg/m2 Sebastian Phuc AT [facility] Work Phone: NEGATED: Highlighted [id number] 12:22-0500 Body weight 77.11 kg Sebastian Phuc AT [facility] Work Phone: NEGATED: Highlighted [id number] 12:22-0500 Body weight 77 kg Sebastian Phuc AT [facility] Work Phone: Encounters Encounter Date Encounter Type Care Provider Facility Start: 03-16-2025 End: 03-16-2025 [facility] Facility:[facility] Start: 03-15-2025 In-person encounter Esme marin MD Work Phone: [facility] Work Phone: Start: 03-15-2025 Visit out of hours Esme spaulding MD Work Phone: Who is [employer] [facility] Work Phone: Start: 03-07-2025 End: 03-07-2025 [facility] Facility:[facility] Start: 02-27-2025 In-person encounter Esme marin MD Work Phone: [facility] Work Phone: Start: 02-27-2025 Visit out of hours Esme spaulding MD Work Phone: Who is Undercover [employer] [facility] Work Phone: Start: 02-07-2025 End: 02-07-2025 [facility] Facility:[facility] Start: 11-27-2024 End: 11-27-2024 ambulatory Magno Renner Facility:[facility] Start: 10-12-2024 Encounter for other preprocedural examination DANI KAPLAN [facility] Start: 05-19-2024 End: 05-19-2024 ambulatory Magno Renner Facility:[facility] Start: 11-16-2022 End: 11-16-2022 ambulatory [facility] Work Phone: Start: 11-16-2022 End: 11-16-2022 Patient encounter procedure [facility] Start: 11-12-2022 End: 11-12-2022 Patient encounter procedure [facility] Start: 09-04-2022 End: 09-04-2022 ambulatory [facility] Work Phone: Start: 09-04-2022 End: 09-04-2022 Patient encounter procedure [facility], Aurelia Villareal Start: 05-16-2019 End: 05-16-2019 Patient encounter procedure [facility] Start: 11-12-2018 Patient encounter procedure ANGELIA (JAKE) [facility] Procedures Date Procedure Procedure Detail Performing Clinician Start: 03-15-2025 Blood pressure outsi de of normal parameters - follow-up documented Esme Martinez MD Work Phone: Start: 03-15-2025 BMI documented as ab ove normal parameters - follow-up documented Esme Martinez MD Work Phone: Start: 03-15-2025 Current tobacco non- user cad cap copd pv dm Esme Martinez MD Work Phone: Start: 03-15-2025 Documentation of cur rent medications Esme Martinez MD Work Phone: Start: 03-15-2025 Pain assessment documented as positive - no follow-up/reason not given Esme Martinez MD Work Phone: Start: 03-15-2025 MOTORIZED COLD THERA PY COMBO UNIT Esme Martinez MD Work Phone: Start: 03-15-2025 WALKER W/ ANGIE Martinez MD Work Phone: Start: 02-27-2025 Blood pressure outsi de of [...] Activity Detail Author Start: 05-19-2025 ambulatory Ambulatory Facility:[facility] Start: 03-15-2025 Assay of chromium [facility] Work Phone: Start: 03-15-2025 Heavy metal quantiat adam each ras [employer] Work Phone: Start: 02-27-2025 Mri any jt lower ext rem w/o contrast matrl [employer] Work Phone: Start: 02-27-2025 Radex hip unilateral with pelvis 2-3 views [employer] Work Phone: Start: 09-26-2021 End: 09-26-2021 Patient encounter procedure Appointment [facility] Work Phone: Immunizations Immunization Date Immunization Notes Care Provider Cora aponte 02-01-2016 tetanus toxoid, redu betsy diphtheria toxoid, and acellular pertussis vaccine, adsorbed [facility] Payers Date Payer Category Payer Medicare [id number] 2024 Medicare [id number] 2024 Self-pay [id number] 1961 Unknown [id number] 1955 Unknown [id number] Unknown [facility] [id number] Unknown [id number] 2.16.8 [id number] Unknown [id number] 2.16.8 [id number] Unknown [id number] 2.16.8 [id number] Unknown [id number] 2.16.8 [id number] Unknown [id number] 2.16.8 [id number] Unknown [id number] 2.16.8 [id number] Social History Date Type Detail Facility Start: 05-04-2021 End: 05-04-2021 Assertion Unknown if ever smoked [facility] Work Phone: Start: 1955 Sex Assigned At Male [facility] Start: 02-27-2025 End: 03-15-2025 social history reviewed [employer] Work Phone: NEGATED: Highlighted rowStart: 09-26-2021 End: 09-26-2021 Employment detail Employment detail [facility] Work Phone: Mental Status Date Assessment Result Facility 02-27-2025 [facility] [employer] Work Phone: Evaluation note Note Date & Type Note Facility Evaluation note There may be informa tion available, but it has not been provided by the sender. [facility] Work Phone: Evaluation note Note Date & Type Note Facility Evaluation note No assessment information availa [facility] Work Phone: Instructions Note Date & Type Note Facility Instructions CompletedPatient advised to follow-up with Primary Care Physician for BMI management. [facility] Work Phone: Summary Purpose Family History No Family History Records Found Family Member Condition Mother Arthritis Father High blood pressure Mother COPD Mother Alcoholism Full Brother High blood pressure Full Brother Diabetes - non-insul in dependent Full Brother Alcoholism Father Diabetes - non-insul in dependent Father Cancer Father Mother Cancer Mother Family Member Condition Mother Arthritis Father High [...] Will No May 04 5:17am Power of Injection Mold Tooling Technician No May 04, 2021 5:17am Advance Directive Response Recorded Date/ Time Advance Directives No March 6:19am Living Will No May 04 6:17am Power of Injection Mold Tooling Technician No May 04, 2021 6:17am Chief Complaint [...] section and content) DATE [facility] DATE CREATED AUTHOR AUTHOR'S ORGANIZ ATION 06/05/2019 [facility] DATE CREATED AUTHOR AUTHOR'S ORGANIZ ATION 04/25/2025 [facility] Reason for Visit (unrecogniz ed section [...] in an alternate section No Information Available No Information Available FOR RECORDS PERTAINING TO [...] BE BASED ON THE PRIMARY CLINICAL RECORDS. [employer] [facility]. provides no warranty or guarantee of the accuracy or completeness of information in this document.
[2025-07-18 17:26] LABS: Hematocrit 44.7 % (40-54); Hemoglobin 15.6 g/dL (13.0-16.5); Immature Granulocytes Count 0.030 X10^3/uL (0.0-0.0); Mean Corp Hgb Conc 34.9 g/dL (32-36); Mean Corpuscular Volume 91.6 fL (80-94); Mean Platelet Vol. 9.9 fl (6.2-12.0); NRBC Flagged by Analyzer 0 % (0-5); Platelet Count 257 K/mm3 (150-450); RBC Distribution Width CV 12.5 % (11.6-14.6); RBC Distribution Width SD 42.1 fl (35.1-43.9); Red Blood Count 4.88 M/mm3 (4.6-6.2); White Blood Count 8.5 K/mm3 (4.4-11.0)
[2025-07-18 17:46] LABS: AST(SGOT) 24 U/L (<=37); Alanine Aminotransfer ALT/SGPT 24 U/L (<=46); Albumin, Serum 4.5 g/dL (3.4-4.8); Alkaline Phosphatase 53 U/L (40-129); Anion Gap 12 (7-18); BUN 18 mg/dL (4-19); BUN/Creat Ratio 19.7 RATIO (10-20); Calcium,Total 9.8 mg/dL (7.6-11.0); Carbon Dioxide 22.6 mmol/L (20.0-29.0); Chloride 102 mmol/L (96-106); Globulin 2.4 g/dL (2.2-4.2); Glucose 93 mg/dL (70-99); Potassium 4.5 mmol/L (3.5-5.1)
[2025-07-18 17:53] LABS: CRP < 3.00 mg/L (0.0-3.0)
[2025-07-23 17:07] LABS: Cytoplasmic Ab (C-ANCA) <1:20 titer (Neg:<1:20); PROEL- A/G Ratio 1.5 (0.7-1.7); PROEL- Albumin 4.0 g/dL (2.9-4.4); PROEL- Alpha-1 Globulin 0.2 g/dL (0.0-0.4); PROEL- Alpha-2 Globulin 0.7 g/dL (0.4-1.0); PROEL- Beta Globulin 1.2 g/dL (0.7-1.3); PROEL- Gamma Globulin 0.6 g/dL (0.4-1.8); PROEL- Globulin, Total 2.7 g/dL (2.2-3.9); PROEL- TOTAL PROTEIN 6.7 g/dL (6.0-8.5); PROEL-M-Spike Not Observed g/dL (Not Observed); Perinuclear Ab (P-ANCA) <1:20 titer (Neg:<1:20)
== END | disposition home or self-care (01) ==
LOC: MFPLAB 15:20
PROVIDERS: PCP Family Medicine; Visit Provider Family Medicine
DX: R42 Dizziness and giddiness (principal); J32.9 Chronic sinusitis, unspecified
CPT/HCPCS: 36415; 80053; 84165; 85025; 86037; 86140